=== PATIENT | male | born 1960 | race Caucasian/White ===

== ENCOUNTER 2020-04-29 11:28 | Outpatient (REF) | payer BC, SELFPAY ==
[2020-04-29 14:28] LABS: Hematocrit 43.6 % (42-52); Hemoglobin 14.5 g/dl (14.0-18.0); Mean Corpuscular HGB Conc 33.3 g/dl (31.0-36.0); Mean Corpuscular Hemoglobin 31.3 pg (27.0-33.0); Mean Corpuscular Volume 94.2 fL (80-98); Mean Platelet Volume 9.6 fL (9.4-12.4); Platelet Count 180 X10*3/uL (160-400); Red Blood Count 4.63 X10*6/uL (4.60-5.80); Red Cell Distribution Width 11.9 % (11.0-16.0); White Blood Count 3.2 X10*3/uL (4.8-10.8)
[2020-04-29 14:36] LABS: Anion Gap 13 (12-20); Blood Urea Nitrogen 18 mg/dL (9-16); Carbon Dioxide 22 mmol/L (22-29); Chloride 107 mmol/L (96-108); Cholesterol 208 mg/dL; Estimated Glomerular Filt Rate > 60; Glucose Fasting 167 mg/dL (60-99); HDL Cholesterol 50 mg/dL; LDL Cholesterol Calculated 132 mg/dl; Potassium 4.2 mmol/l (3.3-5.1); Sodium 138 mmol/L (135-145); Triglycerides 133 mg/dL
[2020-04-30 13:03] LABS: Prostate Specific Antigen Scr 4.53 ng/mL (<0.05-4.0)
== END 2020-04-29 11:29 | disposition home or self-care (01) ==
LOC: HO.HMGCLDS 11:28
PROVIDERS: PCP Internal Medicine; Visit Provider Internal Medicine
DX: R53.83 Other fatigue (principal)
CPT/HCPCS: 36415; 80051; 80061; 82565; 82947; 84153; 84520; 85027

== ENCOUNTER 2020-07-27 08:26 | Outpatient (REF) | payer BC, SELFPAY ==
--- NOTE | ~2020-07-27 | XR_ITS ---
EXAMINATION: XR ABDOMEN KUB CLINICAL INDICATION: Neurogenic bladder COMPARISON: None TECHNIQUE: AP view of the abdomen. FINDINGS: There is scattered stool in the right colon. The bowel gas pattern is otherwise nonspecific. There is no radiopaque renal or urinary bladder calculi. You scattered phleboliths in the pelvis. There is mild spondylosis dorsal spine. No lytic process. Suspect a small loose body in the left hip joint. XR/XR KUB IMPRESSION: Mild constipation. No acute process seen.
--- NOTE | ~2020-07-27 | US_ITS ---
EXAMINATION: US RETROPERITONEAL LIMITED (RENAL ONLY) CLINICAL INFORMATION: Unspecified hydronephrosis. COMPARISON: KUB dated 07/27/2020 and 02/18/2019. Ultrasound renals only dated 01/20/2020 and 12/14/2019. CT abdomen and pelvis without contrast dated 12/16/2019. TECHNIQUE: Real-time imaging of the kidneys. FINDINGS: RIGHT KIDNEY: 12.8 x 5.6 x 5.7 cm (SAG x AP x TRV). The kidney is normal in size, contour, and echogenicity. Renal cortical thickness is normal. No renal calculi or hydronephrosis. There are multiple peripelvic cysts with the largest cyst measuring 1.9 x 1.8 x 1.7 cm. LEFT KIDNEY: 13.4 x 6.6 x 6.3 cm (SAG x AP x TRV). The kidney is normal in size, contour, and echogenicity. Renal cortical thickness is normal. There is likely an extrarenal kidney pelvis. There are multiple peripelvic cysts. The largest cyst measures 3.2 x 2.8 x 2.7 cm. There is an echogenic nonobstructive stone lower pole measuring 0.6 x 0.8 x 0.6 cm. US/US renal BI IMPRESSION: Multiple bilateral peripelvic cysts. Nonobstructive echogenic stone lower pole left kidney.
== END 2020-07-27 08:27 | disposition home or self-care (01) ==
LOC: HO.US 08:26
PROVIDERS: PCP Internal Medicine; Visit Provider Urology
DX: N13.30 Unspecified hydronephrosis (principal)
CPT/HCPCS: 74018; 76775

== ENCOUNTER → 2020-08-14 13:19 | Outpatient (BNVA) | payer BC, SELFPAY | PROVIDERS: PCP Internal Medicine; Visit Provider Urology ==

== ENCOUNTER → 2020-10-30 08:39 | Outpatient (BNVA) | payer SELFPAY | PROVIDERS: PCP Internal Medicine; Visit Provider Physician Assistant Medical | DX: Z02.79 Encounter for issue of other medical certificate (principal) ==

== ENCOUNTER 2020-12-21 02:27 | Inpatient (IN) | payer BC, SELFPAY ==
[2020-12-21] VITALS (14 sets, daily range): BP systolic 00–149; BP diastolic 00–85; PULSE 72–90; RESP 16–18; TEMP 36.6–37.1; O2SAT 93–99; BMI 33.1
--- NOTE | ~2020-12-21 | CT_ITS ---
EXAMINATION: CT ABDOMEN AND PELVIS WITHOUT CONTRAST CLINICAL INFORMATION: Left flank pain COMPARISON: 12/23/2019 TECHNIQUE: Multidetector volumetric imaging was performed from the superior aspect of the liver through the pubic symphysis. Sagittal and coronal reformatted images were obtained on the technologist's workstation. This CT examination was performed using dose optimization techniques as appropriate, variously including the following: *Automated exposure control *Adjustment of mA and/or kV according to patient size (this includes techniques or standardized protocols for targeted exams where dose is matched to indication/reason for exam; i.e. extremities or head) *Use of iterative reconstruction technique DLP: 915 mGy-cm FINDINGS: LUNG BASES: The visualized lung bases are unremarkable. Coronary artery calcifications are present. LIVER, GALLBLADDER, AND BILIARY TREE: The liver is normal in size, shape, and attenuation. No focal hepatic lesion or biliary ductal dilatation is present. Cholelithiasis is noted. PANCREAS: There is partial fatty atrophy of the pancreas. SPLEEN: Unremarkable. ADRENAL GLANDS: Unremarkable. KIDNEYS AND URETERS: There is a proximal left ureteral calculus measuring 3 mm likely resulting in subtle hydronephrosis, though the degree of hydronephrosis is difficult to determine given the associated left peripelvic cysts. There are left lower pole renal calculi measuring up to approximately 13 mm. Redemonstrated right peripelvic cysts. BLADDER: There are 2 bladder calculi identified, measuring approximately 2.0 cm and 1.6 cm in length. GASTROINTESTINAL TRACT: The small and large bowel are unremarkable. The appendix is unremarkable. No free fluid or free air is seen. ABDOMINAL WALL: Bilateral fat-containing inguinal hernias noted. LYMPH NODES: Normal. VASCULAR: There is atherosclerotic calcification along the aorta. PELVIC VISCERA: Unremarkable. OSSEOUS STRUCTURES: Degenerative changes are noted in the spine. CT/CT abdomen pelvis wo con IMPRESSION: 1. Proximal left ureteral calculus measuring 3 mm. Degree of hydronephrosis is difficult to determine given the presence of multiple left peripelvic cysts. 2. Left lower pole renal calculi. 3. Two bladder calculi. 4. Cholelithiasis. 5. Coronary artery calcifications. Correlation with cardiac risk factors is recommended.
--- NOTE | ~2020-12-21 | FL_ITS ---
EXAMINATION: XR FLUOROSCOPY WITH IMAGES CLINICAL INFORMATION: Bladder stone COMPARISON: Previous CT of the abdomen and pelvis from earlier the same day TECHNIQUE: Fluoroscopy performed by Dr. Sam Barber. Fluoroscopy time: 0.9 minutes DAP: 17 Gycm2 Images: 2 FINDINGS: Images demonstrate a left internal ureteral stent. There is left-sided hydronephrosis. FL/FL guidance in OR IMPRESSION: Fluoroscopy guidance for left internal ureteral stent placement.
--- NOTE | 2020-12-21 03:01 | ED_ITS ---
HPI - Abdominal Pain General Chief Complaint: Abdominal Pain Stated Complaint: kidney stone Time Seen by Provider: 12/21/20 02:54 Source: patient Mode of arrival: ambulatory Limitations: no limitations History of Present Illness HPI narrative: Patient comes emergency room complaining of left-sided flank pain. Patient states he has been having intermittent left flank pain for 4-5 days, however the pain started yesterday. Patient complaining of left flank pain and vomiting. Patient states he has had multiple kidney stones and stents in the past, the pain is familiar to him. Patient denies dysuria or hematuria. No fever chills. MD elicited complaint: flank pain Related Data Home Medications Medication Instructions Recorded Confirmed albuterol sulfate 90 mcg/actuation INHALATION 08/14/20 aerosol inhaler losartan 50 mg tablet 50 mg PO DAILY 08/14/20 montelukast 10 mg tablet 10 mg PO DAILY 08/14/20 zolpidem 10 mg tablet 10 mg PO BEDTIME PRN 08/14/20 Previous Rx's Medication Instructions Recorded tamsulosin 0.4 mg capsule 0.4 mg PO BEDTIME 90 Days #90 cap 07/28/20 finasteride 5 mg tablet 5 mg PO DAILY 90 Days #90 tab 11/27/20 ketorolac 10 mg PO TID PRN 5 Days tab 12/21/20 ondansetron HCl [Zofran] 4 mg PO Q6H PRN #10 tab 12/21/20 oxycodone 5 mg PO Q6H PRN #10 tab 12/21/20 prednisone 20 mg PO DAILY #4 tab 12/21/20 tamsulosin 0.4 mg PO DAILY #7 cap 12/21/20 Allergies Allergy/AdvReac Type Severity Reaction Status Date / Time No Known Allergies Allergy Unverified 02/13/20 16:57 [No Known Allergies*] Review of Systems Review of Systems Constitutional : No Weight loss, No Fever, No Chills, No Night Sweats, No Fatigue, No Malaise ENT/Mouth : No Hearing loss, No Ear Pain, No Nasal Congestion, No Sinus Pain, No Hoarseness, No sore throat, No Rhinorrhea, No Swallowing Difficulty Eyes: No Eye Pain, No Swelling, No Redness, No Foreign Body, No Discharge, No Vision Changes Cardiovascular : No Chest Pain, No SOB, No Dyspnea on Exertion, No Orthopnea, No Edema, No Palpitations Respiratory : No Cough, No Sputum, No Wheezing, No Smoke Exposure, No Dyspnea Gastrointestinal : Complaining of nausea vomiting, No Diarrhea, No Constipati on, No abdominal Pain, No Hematochezia, No Melena Genitourinary : no irregular bleeding, No Dysuria, No Urinary Frequency, No Hematuria, No Urinary Incontinence, No Urgency, complaining of left-sided Flank Pain, No Urinary Flow Changes, No Hesitancy Musculoskeletal : No joint pain, No Myalgias, No Joint Swelling Skin : No Skin Lesions, No rash Neuro : No Weakness, No Numbness, No Paresthesias, No Loss of Consciousness, No Dizziness, No Headache Psych : No Anxiety/Panic, No Depression, No SI/HI/AH/VH, No Social Issues, Heme/Lymph: No Bruising, No Bleeding,No Lymphadenopathy Endocrine : No Polyuria, No Polydipsia, No Temperature Intolerance Physical Exam Vital Signs: Vital Signs: Last Vital Signs Temp 98.0 F 12/21/20 02:37 Pulse 85 12/21/20 02:37 Resp 16 12/21/20 06:19 BP 00/00 L 12/21/20 02:37 Pulse Ox 97 12/21/20 02:37 Body Mass Index 33.1 Appearance: Alert. Oriented X3. Very uncomfortable, unable to sit still Eyes: Pupils equal, round and reactive to light. ENT: Pharynx normal. Neck: Normal inspection. Neck supple. No lymph nodes noted. No crepitus CVS: Normal heart rate and rhythm. Pulses normal. Normal S1 and S2 Respiratory: No respiratory distress. Breath sounds normal. No Wheezing. No rales Abdomen: Soft and nontender. No rigidity. No distention. Positive CVA tenderness on the left side Skin: Skin, clammy. Normal skin color. Normal skin turgor. Extremities: No lower extremity edema. No lower extremity edema. No Lacerations. No Rash Neuro: Oriented X 3. No motor deficit. No sensory deficit. Moving all extermities. No slurred speech. Course Course Course Narrative: Overall patient feeling better. I discussed the CT scan with the patient, patient has 1 more stone to be passed, he has 2 in the bladder. Patient states that at this moment he has no pain, but he would like 1 additional dose Dilaudid prior to discharge. Patient's blood pressure stable. I discussed the patient with Dr. Barber, patient will be taken to the OR today for lithotripsy. MDM - Abdominal Pain Lab Data Result diagrams: 12/21/20 03:32 12/21/20 03:32 Labs: Lab Results 12/21/20 12/21/20 Range/Units 03:32 03:32 WBC 4.1 L (4.8-10.8) X10*3/uL RBC 4.65 (4.60-5.80) X10*6/uL Hgb 15.3 (14.0-18.0) g/dl Hct 43.7 (42-52) % MCV 94.0 (80-98) fL MCH 32.9 (27.0-33.0) pg MCHC 35.0 (31.0-36.0) g/dl RDW 12.0 (11.0-16.0) % Plt Count 181 (160-400) X10*3/uL MPV 9.2 L (9.4-12.4) fL Immature Gran % (Auto) 0.7 H (0.0-0.4) % Neut % (Auto) 56.8 (45-73) % Lymph % (Auto) 29.6 (20-40) % [place] % (Auto) 9.7 (2-11) % Eos % (Auto) 2.2 (0-4) % Baso % (Auto) 1.0 (0-2) % Lymph # (Auto) 1.2 (1.2-4.9) X10*3/uL [place] # (Auto) 0.4 (0.1-1.2) X10*3/uL Eos # (Auto) 0.1 (0.0-0.4) X10*3/uL Baso # (Auto) 0.0 (0.0-0.2) X10*3/uL Abs Immat Gran (auto) 0.03 (0.00-0.03) X10*3/uL Absolute Neuts (auto) 2.3 (2.0-8.3) X10*3/uL Absolute Nucleated RBC 0.000 (0.0-0.012) X10*3/uL Nucleated RBC % (auto) 0.0 (0.0-0.2) /100WBC Sodium 139 (135-145) mmol/L Potassium 4.8 (3.3-5.1) mmol/L Chloride 106 (96-108) mmol/L Carbon Dioxide 21 L (22-29) mmol/L Anion Gap 17 (12-20) BUN 19 H (9-16) mg/dL Creatinine 0.92 (0.5-1.4) mg/dL Estim Creat Clear Calc 98.5 Estimated GFR > 60 Random Glucose 144 H (60-115) mg/dL Calcium 9.5 (8.4-10.2) mg/dL Total Bilirubin 0.6 (0.0-1.0) mg/dL Direct Bilirubin 0.2 (0.0-0.5) mg/dL AST 35 (5-37) U/L ALT 43 H (0-40) U/L Alkaline Phosphatase 86 (39-117) U/L Total Protein 7.3 (6.5-8.0) g/dL Albumin 4.5 (3.5-5.0) g/dL Imaging Data CT scan - abdomen: Radiologist's impression: INDINGS: LUNG BASES: The visualized lung bases are unremarkable. Coronary artery calcifications are present. LIVER, GALLBLADDER, AND BILIARY TREE: The liver is normal in size, shape, and attenuation. No focal hepatic lesion or biliary ductal dilatation is present. Cholelithiasis is noted. PANCREAS: There is partial fatty atrophy of the pancreas. SPLEEN: Unremarkable. ADRENAL GLANDS: Unremarkable. KIDNEYS AND URETERS: There is a proximal left ureteral calculus measuring 3 mm likely resulting in subtle hydronephrosis, though the degree of hydronephrosis is difficult to determine given the associated left peripelvic cysts. There are left lower pole renal calculi measuring up to approximately 13 mm. Redemonstrated right peripelvic cysts. BLADDER: There are 2 bladder calculi identified, measuring approximately 2.0 cm and 1.6 cm in length. GASTROINTESTINAL TRACT: The small and large bowel are unremarkable. The appendix is unremarkable. No free fluid or free air is seen. ABDOMINAL WALL: Bilateral fat-containing inguinal hernias noted. LYMPH NODES: Normal. VASCULAR: There is atherosclerotic calcification along the aorta. PELVIC VISCERA: Unremarkable. OSSEOUS STRUCTURES: Degenerative changes are noted in the spine. CT/CT abdomen pelvis wo con IMPRESSION: 1. Proximal left ureteral calculus measuring 3 mm. Degree of hydronephrosis is difficult to determine given the presence of multiple left peripelvic cysts. 2. Left lower pole renal calculi. 3. Two bladder calculi. 4. Cholelithiasis. 5. Coronary artery calcifications. Correlation with cardiac risk factors is recommended. Discharge Plan Discharge Clinical Impression: Ureterolithiasis Patient Disposition: Admitted As Inpatient Instructions: Kidney Stones (ED) Additional Instructions: Please follow-up with your primary care physician tomorrow. If you have any worsening or new symptoms, please return to the emergency room or call 911 Prescriptions: New ketorolac 10 mg tablet 10 mg PO TID PRN (Reason: pain) 5 Days RF: 0 prednisone 20 mg tablet 20 mg PO DAILY Qty: 4 RF: 0 tamsulosin 0.4 mg capsule 0.4 mg PO DAILY Qty: 7 RF: 0 ondansetron HCl [Zofran] 4 mg tablet 4 mg PO Q6H PRN (Reason: nausea and vomiting) Qty: 10 RF: 0 oxycodone 5 mg tablet 5 mg PO Q6H PRN (Reason: pain) Qty: 10 RF: 0 No Action tamsulosin 0.4 mg capsule 0.4 mg PO BEDTIME 90 Days Qty: 90 RF: 2 finasteride 5 mg tablet 5 mg PO DAILY 90 Days Qty: 90 RF: 2 PMFSH Past Medical History Medical History Asthma H/O urinary retention Kidney stones Myocardial infarct, old Social History Social History (Updated 08/14/20 @ 13:26 by BOBBY Stover) Advance Directives: No
[2020-12-21 03:37] LABS: MANUAL DIFF FLAG NO
[2020-12-21 03:39] LABS: Eosinophils Absolute Auto 0.1 X10*3/uL (0.0-0.4); Eosinophils Percent Auto 2.2 % (0-4); Hematocrit 43.7 % (42-52); Hemoglobin 15.3 g/dl (14.0-18.0); Imm Gran Abs Auto 0.03 X10*3/uL (0.00-0.03); Imm Gran Pct Auto 0.7 % (0.0-0.4); Lymphocytes Absolute Auto 1.2 X10*3/uL (1.2-4.9); Lymphocytes Percent Auto 29.6 % (20-40); Mean Corpuscular Hemoglobin 32.9 pg (27.0-33.0); Mean Platelet Volume 9.2 fL (9.4-12.4); Monocytes Absolute Auto 0.4 X10*3/uL (0.1-1.2); Monocytes Percent Auto 9.7 % (2-11); Neutrophils Absolute Auto 2.3 X10*3/uL (2.0-8.3); Neutrophils Percent Auto 56.8 % (45-73); Platelet Count 181 X10*3/uL (160-400); Red Blood Count 4.65 X10*6/uL (4.60-5.80); White Blood Count 4.1 X10*3/uL (4.8-10.8)
[2020-12-21] MEDS: Ketorolac Tromethamine 15 MG/ML VIAL 30 MG IVPUSH (03:45)
[2020-12-21] MEDS: 0.9 % Sodium Chloride 1,000 ML 999 ML IVCONT (03:52)
[2020-12-21] MEDS: Morphine Sulfate 4 MG/ML CARTRIDGE IVPUSH (04:04)
[2020-12-21 04:26] LABS: Alanine Aminotransferase 43 U/L (0-40); Albumin Level 4.5 g/dL (3.5-5.0); Alkaline Phosphatase 86 U/L (39-117); Anion Gap 17 (12-20); Aspartate Amino Transferase 35 U/L (5-37); Bilirubin Direct 0.2 mg/dL (0.0-0.5); Bilirubin Total 0.6 mg/dL (0.0-1.0); Blood Urea Nitrogen 19 mg/dL (9-16); Calcium 9.5 mg/dL (8.4-10.2); Carbon Dioxide 21 mmol/L (22-29); Chloride 106 mmol/L (96-108); Creatinine Clr Calc Pharmacy 98.5; Estimated Glomerular Filt Rate > 60; Glucose Random 144 mg/dL (60-115); Potassium 4.8 mmol/L (3.3-5.1); Sodium 139 mmol/L (135-145); Total Protein 7.3 g/dL (6.5-8.0)
[2020-12-21] MEDS: HYDROmorphone HCl 1 MG/ML SYRINGE IVPUSH ×2 (05:05→06:14)
--- NOTE | 2020-12-21 07:43 | PM.UROCN ---
Assessment and Plan (1) Nephrolithiasis: Status: Acute (2) Bladder stones: Status: Acute Ureteroscopy We discussed the nature of the decision and reasonable alternatives for performing the above surgery. Interventions include chemical dissolution, ESWL, ureteroscopy with laser lithotripsy and stent placement, PCNL. Options such as medical therapy were discussed. The relative uncertainties and benefits related to each alternate procedure were adequately discussed. General surgical risks including, but not limited to, pain, bleeding, infection, myocardial infarction, pulmonary embolus, deep vein thrombosis and cerebrovascular accident which may result in further hospitalization were discussed. Full disclosure of the procedure as well as all major risks, benefits and complications were discussed including but not limited to damage to the urethra, bladder and kidney infection, damage to the ureter, stent migration or malposition, scarring to the renal pelvis, remnant stone fragments, subsequent stone passage with need for secondary procedures. The overall secondary procedure rate is approximately 10-15%. The success rate of the procedure was discussed. Success of the procedure in the short-term does not necessarily guarantee that long-term success will be maintained. Suitable follow up will need to be maintained. The patient showed understanding of discussion and wishes to proceed with - cystoscopy, retrograde, ureteroscopy, possible lithotripsy/stone basketing and stent on the left side History of Present Illness Consult details Consult date: 12/21/20 Narrative: Jhon is a very pleasant male. Well known to Urology Presented to emergency room with left-sided flank pain CT scan shows - There is a proximal left ureteral calculus measuring 3 mm likely resulting in subtle hydronephrosis, though the degree of hydronephrosis is difficult to determine given the associated left peripelvic cysts. There are left lower pole renal calculi measuring up to approximately 13 mm. Redemonstrated right peripelvic cysts. There are 2 bladder calculi identified, measuring approximately 2.0 cm and 1.6 cm in length Discussed CT findings with patient. He would like to proceed with cystoscopy, laser of bladder stones, left retrograde with ureteroscopy and laser lithotripsy. Review of Systems Constitutional: Constitutional: Denies chills and Denies fever(s) Cardiovascular: Cardiovascular: Reports no additional cardiovascular complaints and Denies syncope Respiratory: Respiratory: Denies cough Gastrointestinal: Gastrointestinal: Denies abdominal pain and Denies heartburn Genitourinary: Genitourinary: Reports as per HPI and Denies change in libido Neurologic: Denies syncope Psychiatric: Psychiatric: Denies change in libido Endocrine: Endocrine: Denies change in libido REPLACED BY [facility] Past Medical History Medical History Asthma H/O urinary retention Kidney stones Myocardial infarct, old Social History Social History (Updated 08/14/20 @ 13:26 by BOBBY Stover) Advance Directives: No Meds Allergies Allergy/AdvReac Type Severity Reaction Status Date / Time No Known Allergies Allergy Unverified 02/13/20 16:57 [No Known Allergies*] Active Medications: Current Medications Generic Name Dose Route Start Last Admin Trade Name Freq PRN Reason Stop Dose Admin Acetaminophen 650 mg 12/21/20 07:37 Acetaminophen 325 Mg Tablet PO 12/21/20 07:38 ONCE ONE Sodium Chloride 1,000 mls @ 80 mls/hr 12/21/20 07:45 Ns IVCONT .[id number] ANGELA Levofloxacin 500 mg 12/21/20 07:37 Levofloxacin 500 Mg Tablet PO 12/21/20 07:38 ONCE ONE Sodium Chloride 3 ml 12/21/20 08:00 0.9 % Sodium Chloride Flush 3 Ml Syringe IVFLUSH QSHIFT [facility] Sodium Chloride 3 ml 12/21/20 08:00 0.9 % Sodium Chloride Flush 3 Ml Syringe IVFLUSH QSHIFT [facility] Tramadol HCl 50 mg 12/21/20 07:37 Tramadol Hcl 50 Mg Tablet PO Q6H PRN Pain, Moderate (Pain Scale 4-6 Home Medications Medication Instructions Recorded Confirmed Last Taken Type albuterol sulfate 90 mcg/actuation INHALATION 08/14/20 Unknown History aerosol inhaler losartan 50 mg tablet 50 mg PO DAILY 08/14/20 Unknown History montelukast 10 mg tablet 10 mg PO DAILY 08/14/20 Unknown History zolpidem 10 mg tablet 10 mg PO BEDTIME PRN 08/14/20 Unknown History Physical Exam Vital Signs: Vital Signs: Last Vital Signs Temp 98 F 12/21/20 07:39 Pulse 87 12/21/20 07:39 Resp 16 12/21/20 07:39 BP 124/84 12/21/20 07:39 Pulse Ox 93 12/21/20 07:39 Body Mass Index 33.1 Const: General: cooperative, healthy appearing, comfortable and no acute distress Orientation/consciousness: patient oriented x3 HENMT: Face and sinus: Yes normal facial exam Mouth: moist mucous membranes Neck: Neck: Yes normal visual inspection, Yes full ROM and Yes trachea midline Chest: Chest palpation & inspection: normal inspection of the chest Resp: Effort & Inspection: normal respiratory effort, able to speak in complete sentences and no respiratory distress GI: Inspection: Yes normal to inspection Back/Spine/Pelvis: Cervical Spine: normal cervical lordosis Thoracic/Lumbar Spine: thoracic and lumbar spine normal to inspection Skin: General skin exam: no rashes or lesions noted Neuro: General: patient oriented x3, gait normal, tone normal and moves all extremities Extrem: General: Yes normal to inspection and Yes capillary refill normal Results Labs Result diagrams: 12/21/20 03:32 12/21/20 03:32 Labs: Abnormal lab results 12/21/20 12/21/20 Range/Units 03:32 03:32 WBC 4.1 L (4.8-10.8) X10*3/uL MPV 9.2 L (9.4-12.4) fL Immature Gran % (Auto) 0.7 H (0.0-0.4) % Carbon Dioxide 21 L (22-29) mmol/L BUN 19 H (9-16) mg/dL Random Glucose 144 H (60-115) mg/dL ALT 43 H (0-40) U/L Short CBC 12/21/20 Range/Units 03:32 WBC 4.1 L (4.8-10.8) X10*3/uL Hgb 15.3 (14.0-18.0) g/dl Hct 43.7 (42-52) % Plt Count 181 (160-400) X10*3/uL BMP 12/21/20 03:32 Sodium 139 Potassium 4.8 Chloride 106 Carbon Dioxide 21 L BUN 19 H Creatinine 0.92 Calcium 9.5 Liver Function 12/21/20 Range/Units 03:32 Total Bilirubin 0.6 (0.0-1.0) mg/dL Direct Bilirubin 0.2 (0.0-0.5) mg/dL AST 35 (5-37) U/L ALT 43 H (0-40) U/L Alkaline Phosphatase 86 (39-117) U/L Albumin 4.5 (3.5-5.0) g/dL All other labs normal. Procedures Date of Service Date of Service: 12/21/20
[2020-12-21 08:01] LABS: COVID-19 Test Negative (Negative)
[2020-12-21] MEDS: levoFLOXacin 500 MG TABLET PO (08:01)
[2020-12-21] MEDS: Acetaminophen 325 MG TABLET 650 MG PO (08:01)
[2020-12-21] MEDS: traMADoL HCL 50 MG TABLET PO (08:02)
[2020-12-21] MEDS: 0.9 % Sodium Chloride 1,000 ML 80 ML IVCONT (08:54)
--- NOTE | 2020-12-21 12:26 | MHC.SHP ---
Pre-Procedural Eval Section A Date of Service: 12/21/20 The patient is an INPATIENT: No Changes since office visit: Yes Patient answered all questions The History & Physical has been completed within 30 days and I have reviewed it.: Yes Section B Chief Complaint: BLADDER STONE AND LEFT URETERIC STONE Allergies: Allergies Allergy/AdvReac Type Severity Reaction Status Date / Time No Known Allergies Allergy Unverified 02/13/20 16:57 [No Known Allergies*] Plan I have reviewed the history and physical and performed a pertinent physical examination on my patient. No changes have occurred unless specified. Plan for cystoscopy, bladder stone removal, left retrograde, left ureteroscopy laser lithotripsy and possible stent
--- NOTE | 2020-12-21 12:26 | HO.ANESPROP2 ---
[facility] Active Problems Active Problems: All Active Problems (Updated 12/21/20 @ 07:47 by Sam Barber MD) Bladder stones (Acute) Neurogenic urinary bladder disorder (Acute) Hydronephrosis (Acute) Nephrolithiasis (Acute) BPH w urinary obs/LUTS (Acute) Ureterolithiasis (Acute) Past Medical History Medical History Asthma H/O urinary retention Kidney stones Myocardial infarct, old Social History Social History Patient Tobacco Use Status: Never used Tobacco Use of substances other than those prescribed or required for medical reasons: No Have you been hit, kicked, punched, or otherwise hurt by someone within the past year? If so, by whom?: No Are you DNR?: No Advance Directives: No Meds Allergies Allergy/AdvReac Type Severity Reaction Status Date / Time No Known Allergies Allergy Unverified 02/13/20 16:57 [No Known Allergies*] Active Medications: Current Medications Generic Name Dose Route Start Last Admin Trade Name Freq PRN Reason Stop Dose Admin Sodium Chloride 1,000 mls @ 80 mls/hr 12/21/20 07:45 12/21/20 08:54 Ns IVCONT 80 mls/hr .[id number] ANGELA Administration Morphine Sulfate 4 mg 12/21/20 09:53 Morphine Sulfate 4 Mg/Ml Cartridge IVPUSH Q4H PRN Pain, Moderate (Pain Scale 4-6 Sodium Chloride 3 ml 12/21/20 08:00 12/21/20 08:34 0.9 % Sodium Chloride Flush 3 Ml Syringe IVFLUSH Not Given QSHIFT ANGELA Sodium Chloride 3 ml 12/21/20 08:00 12/21/20 08:35 0.9 % Sodium Chloride Flush 3 Ml Syringe IVFLUSH Not Given QSHIFT ANGELA Tramadol HCl 50 mg 12/21/20 07:37 12/21/20 08:02 Tramadol Hcl 50 Mg Tablet PO 50 mg Q6H PRN Administration Pain, Moderate (Pain Scale 4-6 Home Medications Medication Instructions Recorded Confirmed Last Taken Type albuterol sulfate 90 mcg/actuation 2 puff INHALATION Q4H PRN 08/14/20 12/21/20 Unknown History aerosol inhaler losartan 50 mg tablet 50 mg PO DAILY 08/14/20 12/21/20 Unknown History montelukast 10 mg tablet 10 mg PO DAILY 08/14/20 12/21/20 Unknown History zolpidem 10 mg tablet 10 mg PO BEDTIME PRN 08/14/20 12/21/20 Unknown History Exam Exam Date and Time: December 21, 2020 1226 Height,Weight and Vital Signs: Height 5 ft 8 in Weight 98.883 kg Last Vital Signs Temp 97.9 F 12/21/20 10:44 Pulse 90 12/21/20 10:44 Resp 18 12/21/20 10:44 BP 146/80 H 12/21/20 10:44 Pulse Ox 95 12/21/20 10:44 Pertinent Lab Results Pertinent Lab Results: Laboratory Tests 12/21/20 12/21/20 12/21/20 03:32 03:32 07:35 WBC 4.1 L RBC 4.65 Hgb 15.3 Hct 43.7 MCV 94.0 MCH 32.9 MCHC 35.0 RDW 12.0 Plt Count 181 MPV 9.2 L Immature Gran % (Auto) 0.7 H Neut % (Auto) 56.8 Lymph % (Auto) 29.6 [place] % (Auto) 9.7 Eos % (Auto) 2.2 Baso % (Auto) 1.0 Lymph # (Auto) 1.2 [place] # (Auto) 0.4 Eos # (Auto) 0.1 Baso # (Auto) 0.0 Abs Immat Gran (auto) 0.03 Absolute Neuts (auto) 2.3 Absolute Nucleated RBC 0.000 Nucleated RBC % (auto) 0.0 Sodium 139 Potassium 4.8 Chloride 106 Carbon Dioxide 21 L Anion Gap 17 BUN 19 H Creatinine 0.92 Estim Creat Clear Calc 98.5 Estimated GFR > 60 Random Glucose 144 H Calcium 9.5 Total Bilirubin 0.6 Direct Bilirubin 0.2 AST 35 ALT 43 H Alkaline Phosphatase 86 Total Protein 7.3 Albumin 4.5 COVID-19 (LG) Negative COVID-19 Clin Com See Note Airway Mallampati Class: II TM Dist: >3cm Neck ROM: Full Assessment and Plan Assessment Anesthesia Assessment: Anesthesia Plan Discussed and Chart Reviewed Final Anesthetic Review NPO: Yes ASA Class: III Final Preanesthetic Review: No Changes in Pt Med Stat, Meds/Allgs Chart Reviewed, Consent Obtained/Reviewed and Anes Risks/Benef Reviewed Patient Risk: Intermediate Procedure Risk: Low Assessment/Block/Sedation in SS: Assess/Block/Sedation-SS Anesthetic Plan Anesthetic Plan: GA Disposition: Standard PACU
[2020-12-21] MEDS: Lactated Ringers 500 ML 20 ML IVCONT (12:36)
--- NOTE | 2020-12-21 12:46 | PC.NURSE ---
Patient rhythm taken on SSS arrival. SR on monitor, pulse 90. During intake, rhythm changed to SR with BBB. Pulse 95-100. Patient asymptomatic. Dr. Rivas aware and at bedside. No new orders, okay to proceed with procedure.
--- NOTE | 2020-12-21 12:51 | MHC.SHP ---
Pre-Procedural Eval Section A Date of Service: 12/21/20 Section B Chief Complaint: BLADDER STONE AND LEFT URETERIC STONE Allergies: Allergies Allergy/AdvReac Type Severity Reaction Status Date / Time No Known Allergies Allergy Unverified 02/13/20 16:57 [No Known Allergies*] Plan I have reviewed the history and physical and performed a pertinent physical examination on my patient. No changes have occurred unless specified.
--- NOTE | 2020-12-21 14:24 | W.PM.OPN ---
Operative Note Operative Note Date of Service: 12/21/20 Narrative: PreOperative Diagnosis: Left proximal ureteric stone, left renal stones large, bladder stones Post Operative Diagnosis: As above Procedure: - 1. Cystoscopy laser lithotripsy of 2 bladder stones each 2 cm in diameter - 2. cystoscopy, retrograde left - 3. dilatation of ureteric orifice under fluoroscopy - 4. ureteroscopy, laser lithotripsy - modifier 22 - 2 large stones in lower pole renal kidney - 5. stent placement left Surgeon: Dr Sam Barber Anesthesia: General Indications for procedure: Is a 60-year-old male. Known to Urology. Had presented through emergency room with left-sided flank pain. On imaging was found to have 2 2 cm stones within his bladder, 1 x 3 mm proximal left ureteric stone with mild to moderate hydronephrosis, 2 x 9 mm stones in the lower pole of the left kidney. Recommendation was for intervention. Laser lithotripsy of stones in bladder as well as renal stones with stent placement. Procedure: After informed consent was verified patient was brought to the operating placed in supine position. Anesthesia was administered per protocol. Patient was placed in modified dorsal lithotomy position and prepped and draped in a sterile fashion. Safety pause time-out and side of surgery confirmed. Antibiotics confirmed. Twenty-two Armenian cystoscope inserted per urethra. Ureteric orifices normal position. To 2 cm bladder stones. Using the 900 micron laser fiber the stones were broken into small fragments and irrigated out from the bladder. This took approximately 45 minutes. Each stone was approximately 3 cm in diameter. When the stone debris had been removed the left ureteric orifice cannulated retrograde examination performed. There was a small filling defect proximal portion of the ureter consistent with the imaging that showed a 3 mm stone in the proximal portion of the ureter. A Sensor guidewire was placed. This appeared to push the obstructing stone back up into the kidney. The kidney itself was dilated in both the upper and lower pole calices. Suggestive of some type of chronic process. The left ureter was dilated with the internal cannula of the ureteric access sheath. The sheath was placed. Using the flexible digital Olympus ureteral scope the stone was encountered in lower pole. There were 2 large stones in the lower pole. Using the 260 micron laser fiber the stones were broken into much smaller pieces using a combination of dusting and hammer settings for the laser. This was a prolonged procedure taking 100% longer than typical. There were multiple large stones in the lower pole of the kidney. These were broken into many small pieces. As this was prolonged decision was made not to basket fragments. Instead a Cook flexible soft 6 Armenian variable length double-J catheter was placed without difficulty. He tolerated procedure well was extubated in operating room transferred in stable condition to the recovery area Pathology: Bladder stones Drains: Cook 6 Armenian by variable length double-J catheter
[2020-12-21] MEDS: Phenazopyridine HCL 100 MG TABLET PO (14:57)
== END 2020-12-21 12:00 | disposition home or self-care (01) | DRG 465 ==
LOC: HO.ED 07:47 → HO.EDOVER 08:11
PROVIDERS: Admitting Provider Urology; Emergency Provider Emergency Medicine; PCP Internal Medicine; Visit Provider Urology
PROC: 0TFB8ZZ Fragmentation in Bladder, Via Natural or Artificial Opening Endoscopic (ICD-10-PCS; CPT 52356; principal; 2020-12-21 12:50)
DX: N13.2 Hydronephrosis with renal and ureteral calculous obstruction (principal); I25.2 Old myocardial infarction; N21.0 Calculus in bladder; Z87.442 Personal history of urinary calculi; Z20.822 Contact with and (suspected) exposure to COVID-19; Z79.52 Long term (current) use of systemic steroids; Z79.899 Other long term (current) drug therapy
CPT/HCPCS: 52356; 52317; 36415; 74176; 80048; 80076; 85025; 87635; 88300; 99284; C1769; C2617; J1100; J1170; J1885; J2250; J2270; J2405; J3010; Q9967

== ENCOUNTER → 2020-12-24 12:49 | Outpatient (BNVA) | payer BC, SELFPAY | PROVIDERS: PCP Internal Medicine; Visit Provider Urology | DX: N40.1 Benign prostatic hyperplasia with lower urinary tract symptoms (principal); N13.8 Other obstructive and reflux uropathy; N20.1 Calculus of ureter; N20.0 Calculus of kidney; Z46.6 Encounter for fitting and adjustment of urinary device | CPT/HCPCS: 52310 ==

== ENCOUNTER 2021-02-22 10:27 | Outpatient (REF) | payer BC, SELFPAY ==
--- NOTE | ~2021-02-22 | US_ITS ---
EXAMINATION: US RETROPERITONEAL LIMITED (RENAL ONLY) CLINICAL INFORMATION: Calculus of kidney. COMPARISON: CT abdomen and pelvis 12/21/2020. Renal ultrasound 07/27/2020 and 01/20/2020. X-ray abdomen KUB 07/27/2020 and 02/18/2019. TECHNIQUE: Real-time imaging of the kidneys. FINDINGS: RIGHT KIDNEY: 12.9 x 5.6 x 8.8 cm (SAG x AP x TRV). The kidney is normal in size, contour, and echogenicity. Renal cortical thickness is normal. No renal calculi or hydronephrosis. There is a 1.3 x 1.4 x 1.1 cm peripelvic anechoic cysts. LEFT KIDNEY: 12.9 x 6.2 x 6.2 cm (SAG x AP x TRV). The kidney is normal in size, contour, and echogenicity. Renal cortical thickness is normal. No hydronephrosis. There is a peripelvic upper pole anechoic cyst measuring 2.3 x 3.2 x 3.3 cm. There is echogenic nonobstructive stone lower pole measuring 0.47 x 0.42 x 0.68 cm. US/US renal BI IMPRESSION: Bilateral peripelvic cysts. Echogenic stone lower pole left kidney.
== END 2021-02-22 10:28 | disposition home or self-care (01) ==
LOC: HO.US 10:27
PROVIDERS: Visit Provider Urology
DX: N20.0 Calculus of kidney (principal)
CPT/HCPCS: 76775

== ENCOUNTER → 2021-05-05 14:11 | Outpatient (BNVA) | payer BC, SELFPAY | PROVIDERS: PCP Internal Medicine; Visit Provider Urology ==

== ENCOUNTER 2021-06-22 07:19 | Outpatient (REF) | payer BC, SELFPAY ==
[2021-06-22 07:46] VITALS: BP 129/74; PULSE 85; RESP 16; TEMP 36.7; O2SAT 97; BMI 34.9
[2021-06-22 08:33] VITALS: BP 124/67; PULSE 87; RESP 16; O2SAT 96
--- NOTE | 2021-06-23 11:20 | W.PM.OPN ---
Operative Note Operative Note Date of Service: 06/23/21 Narrative: Preoperative diagnosis: Elevated PSA Postoperative diagnosis: Elevated PSA Procedure: 1. transrectal ultrasound measurement of prostate 2. transrectal ultrasound-guided pudendal nerve block 3. transrectal ultrasound-guided prostate biopsy 12 core Surgeon: Dr. Sam Barber Anesthetic: Local Indications for procedure: Elevated PSA Procedure: After informed consent was verified, the patient was brought into the procedure area and lay left-hand side down on the table. Patient identity confirmed. Perioperative antibiotics confirmed. Iodine 10cc with Gel was placed per rectum Ultrasound probe was placed per rectum The prostate was measured in 3 dimensions Total volume equals 55 gm There were no cystic structures and no calcifications noted and the prostate was homogeneous in nature A ultrasound-guided pudendal nerve block was performed using 10 cc of 1% lidocaine. 8 cc was placed at the base and 2 cc of the apex. A 12 core biopsy was performed with 6 cores each side. Two cores were taken at the apex, mid and base. Cores were spaced between lateral and medial. He tolerated the procedure well. Was able to ambulate to bathroom after 5 minutes. Printed instructions regarding antibiotic use and common side effects such as low-grade temperature and bleeding were given Pathology: 12 core prostate biopsy.
== END 2021-06-22 07:20 | disposition home or self-care (01) ==
LOC: HO.MS 07:19
PROVIDERS: PCP Internal Medicine; Visit Provider Urology
PROC: (CPT 55700; principal; 2021-06-22 08:00)
DX: R97.20 Elevated prostate specific antigen [PSA] (principal)
CPT/HCPCS: 55700; 76942; 88305

== ENCOUNTER → 2021-07-01 09:04 | Outpatient (BNVA) | payer BC, SELFPAY | PROVIDERS: Visit Provider Urology ==

== ENCOUNTER 2021-08-23 10:49 | Inpatient (IN) | payer BC, SELFPAY ==
--- NOTE | ~2021-08-23 | FL_ITS ---
EXAMINATION: Intraoperative fluoroscopy CLINICAL INFORMATION: Right-sided stent placement COMPARISON: CT abdomen pelvis 08/15/2021 TECHNIQUE: Intraoperative fluoroscopy was provided for use by Dr. Barber. A total of 2 images were saved to PACS. A radiologist was not present during imaging. Today's dictation is only for administrative purposes to document intraoperative fluoroscopic usage. TOTAL FLUOROSCOPIC TIME: 19 seconds FL/FL guidance in OR FINDINGS~\^^ Intraoperative fluoroscopy provided for use by Dr. Barber. Please see operative note for detailed findings.
--- NOTE | ~2021-08-23 | CT_ITS ---
EXAMINATION: CT ABDOMEN AND PELVIS WITHOUT CONTRAST CLINICAL INFORMATION: COMPARISON: Previous CT November 2020 and renal ultrasound January 2021 TECHNIQUE: Multidetector volumetric imaging was performed from the superior aspect of the liver through the pubic symphysis. Sagittal and coronal reformatted images were obtained on the technologist's workstation. This CT examination was performed using dose optimization techniques as appropriate, variously including the following: *Automated exposure control *Adjustment of mA and/or kV according to patient size (this includes techniques or standardized protocols for targeted exams where dose is matched to indication/reason for exam; i.e. extremities or head) *Use of iterative reconstruction technique DLP: 880 mGy-cm FINDINGS: LUNG BASES: There are new predominantly peripheral nodular densities seen at the lung bases. The largest measures 1 x 2 cm along the posterior diaphragmatic pleural surface of the right lower lobe axial image 18 series 3. This may represent residual of old infectious or inflammatory process in particular old Covid infection. Clinical correlation is recommended. Follow-up chest centered LIVER, GALLBLADDER, AND BILIARY TREE: The liver is normal in size, shape, and attenuation. No focal hepatic lesion or biliary ductal dilatation is present. The gallbladder is unremarkable with no evidence of radiopaque gallstones, gallbladder wall thickening, or obvious pericholecystic inflammatory changes. PANCREAS: Unremarkable. SPLEEN: Unremarkable. ADRENAL GLANDS: Unremarkable. KIDNEYS AND URETERS: There is right hydronephrosis from a 4 x 6 mm right proximal ureteral or UVJ stone. There is a tiny 1 mm stone in the lower pole of the right kidney. There is question of a right peripelvic cysts as well. There are small left renal stones, largest measuring 3 mm in the upper pole. There are left renal peripelvic cysts. No left hydronephrosis, ureteral dilatation or ureteral stone is seen. BLADDER: Not optimally distended. GASTROINTESTINAL TRACT: There is diverticulosis of the colon. Small and large bowel is otherwise unremarkable. The appendix is unremarkable. The stomach is unremarkable. ABDOMINAL WALL: Small umbilical, periumbilical and bilateral inguinal hernias containing fat. LYMPH NODES: Normal. VASCULAR: There is evidence of atherosclerotic disease. There is no aneurysm. PELVIC VISCERA: Unremarkable. OSSEOUS STRUCTURES: There are degenerative changes of the spine. CT/CT abdomen pelvis wo con IMPRESSION: Right hydronephrosis from a 4 x 6 mm right UPJ or proximal ureteral stone. Small bilateral renal stones. Left renal peripelvic cysts and question right peripelvic cyst. Slightly enlarged prostate gland. Diverticulosis. No evidence of diverticulitis. Multiple new nodular opacities seen at the lung bases. This could represent residual of old infectious or inflammatory process, in particular Covid infection. Neoplastic process cannot be excluded. Clinical correlation and follow-up chest CT recommended. Fleischner guidelines were followed.
[2021-08-23 11:36] VITALS: BP 148/85; PULSE 111; RESP 18; TEMP 36.8; O2SAT 96; BMI 33.4
[2021-08-23 11:52] LABS: MANUAL DIFF FLAG NO
[2021-08-23 12:01] LABS: Basophils Percent Auto 0.2 % (0-2); Eosinophils Percent Auto 0.5 % (0-4); Hemoglobin 14.3 g/dl (14.0-18.0); Imm Gran Abs Auto 0.04 X10*3/uL (0.00-0.03); Imm Gran Pct Auto 0.5 % (0.0-0.4); Lymphocytes Absolute Auto 0.8 X10*3/uL (1.2-4.9); Lymphocytes Percent Auto 10.2 % (20-40); Mean Corpuscular HGB Conc 33.3 g/dl (31.0-36.0); Mean Corpuscular Hemoglobin 31.6 pg (27.0-33.0); Mean Corpuscular Volume 95.1 fL (80.0-98.0); Mean Platelet Volume 9.1 fL (9.4-12.4); Monocytes Absolute Auto 0.8 X10*3/uL (0.1-1.2); Neutrophils Absolute Auto 6.5 x10*3/uL (2.0-8.3); Neutrophils Percent Auto 78.6 % (45-73); Platelet Count 152 X10*3/uL (160-400); Red Blood Count 4.52 X10*6/uL (4.60-5.80); Red Cell Distribution Width 12.6 % (11.0-16.0); White Blood Count 8.3 X10*3/uL (4.8-10.8)
[2021-08-23 12:09] LABS: Anion Gap 15 (12-20); Blood Urea Nitrogen 23 mg/dL (9-16); Calcium 9.3 mg/dL (8.4-10.2); Carbon Dioxide 20 mmol/L (22-29); Chloride 106 mmol/L (96-108); Creatinine Clr Calc Pharmacy 65.6; Estimated Glomerular Filt Rate 53; Glucose Random 169 mg/dL (60-115); Potassium 4.3 mmol/L (3.3-5.1); Sodium 137 mmol/L (135-145)
[2021-08-23 14:36] VITALS: BP 147/86; PULSE 94; RESP 18; TEMP 36.7; O2SAT 98
--- NOTE | 2021-08-23 14:36 | ED_ITS ---
HPI - Male Genitourinary General Chief complaint: Urogenital-Male Stated complaint: PASSING KIDNEY STONES PAIN Time Seen by Provider: 08/23/21 14:37 Source: patient Mode of arrival: ambulatory Limitations: no limitations History of Present Illness HPI Narrative: patient is a 61-year-old male with a past medical history of renal calculi. He presents emergency department today for concern about a blockage with kidney stone. He states he is followed by urologist Dr. Barber. states 3 days ago he passed 2 kidney stones, an additional 2 kidney stones were passed 2 days ago. Since yesterday has been experiencing right flank pain, and urinary retention. states he is prescribed prednisone, naproxen, tamsulosin, tramadol, and oxycodone. States that he last took naproxen and oxycodone last night. He contacted his urologist who advised him to come to the emergency department for evaluation. Denies fevers, chills, nausea, vomiting, abdominal pain, hematuria, dysuria. Denies chest pain, palpitations, shortness of breath, difficulty breathing. Related Data Home Medications Medication Instructions Recorded Confirmed albuterol sulfate 90 mcg/actuation 2 puff INHALATION Q4H PRN 08/14/20 12/21/20 aerosol inhaler (ProAir HFA) losartan 50 mg tablet 50 mg PO DAILY 08/14/20 12/21/20 montelukast 10 mg tablet 10 mg PO DAILY 08/14/20 12/21/20 zolpidem 10 mg tablet 10 mg PO BEDTIME PRN 08/14/20 12/21/20 Previous Rx's Medication Instructions Recorded finasteride 5 mg tablet 5 mg PO DAILY 90 Days #90 tab 11/27/20 ketorolac 10 mg tablet 10 mg PO TID PRN 5 Days tab 12/21/20 ondansetron HCl 4 mg tablet 4 mg PO Q6H PRN #10 tab 12/21/20 (Zofran) oxycodone 5 mg tablet 5 mg PO Q6H PRN #10 tab 12/21/20 prednisone 20 mg tablet 20 mg PO DAILY #4 tab 12/21/20 tramadol 50 mg tablet 50 mg PO Q6H PRN #14 tab 12/21/20 phenazopyridine 100 mg tablet 100 mg PO TID PRN 4 Days #12 tab 12/25/20 (Pyridium) sulfamethoxazole 800 1 tab PO BID 3 Days #6 tab 05/05/21 mg-trimethoprim 160 mg tablet (Bactrim DS) tamsulosin 0.4 mg capsule 0.4 mg PO BEDTIME 90 Days #90 cap 05/18/21 naproxen 500 mg tablet (Naprosyn) 500 mg PO BID #14 tab 08/19/21 prednisone 20 mg tablet 20 mg PO DAILY 5 Days #5 tab 08/19/21 tramadol 50 mg tablet 50 mg PO Q8H PRN #15 tab 08/20/21 hydrocodone 5 mg-acetaminophen 325 1 tab PO TID PRN 4 Days #10 tab 08/22/21 mg tablet Allergies Allergy/AdvReac Type Severity Reaction Status Date / Time No Known Allergies Allergy Verified 07/01/21 09:05 [No Known Allergies*] Review of Systems Review of Systems: Constitutional : No Weight loss, No Fever, No Chills ENT/Mouth :? No sore throat, No Rhinorrhea Eyes: No Swelling, No Redness Cardiovascular : No Chest Pain, No SOB, No Edema Respiratory : No Cough, No Sputum, No Wheezing Gastrointestinal : No Nausea, No Vomiting, No Diarrhea, No abdominal pain, No Hematochezia, No Melena Genitourinary : Positive right flank pain, positive hesitancy /retention. No Dysuria, No Urinary Frequency, No Hematuria, No Urgency? Musculoskeletal : No joint pain, No Myalgias, No Joint Swelling Skin : No Skin Lesions, No rash Neuro : No Weakness, No Numbness, No Dizziness, No Headache Psych : No Anxiety/Panic, No Depression Heme/Lymph: No Bruising, No Lymphadenopathy Endocrine : No Polyuria, No Polydipsia COUNT INCLUDES THE [facility] Past Medical History Attestation statement: The following information was validated with the patient. Source: old records reviewed Medical History Asthma H/O urinary retention Kidney stones Myocardial infarct, old Social History Social History Patient Tobacco Use Status: Never used Tobacco Advance Directives: Yes Advance Directives on File: Yes Advance Directives Date on File: 12/21/20 Physical Exam Vital Signs: Vital Signs: Last Vital Signs Temp 97.9 F 08/23/21 17:25 Pulse 84 08/23/21 17:25 Resp 16 08/23/21 17:46 BP 136/87 08/23/21 17:25 Pulse Ox 98 08/23/21 14:36 BMI result Body Mass Index 33.4 Vital signs have been reviewed as normal and appeared to be correct. Blood pres sure mildly elevated 147/86..? Heart rate normal.? Respiration rate normal. Temperature normal.? Oxygen saturation normal. Appearance: Alert.?Oriented to person, place and time. No acute distress.?Normal affect. Eyes: Pupils equal, round and reactive to light.? ENT: Pharynx normal.?? Neck: Normal inspection.? Neck supple.?? CVS: Heart sounds normal. Normal heart rate and rhythm.? Pulses normal.?? Respiratory: No respiratory distress.? Lung sounds clear to auscultation bilaterally?? Abdomen: Soft and non-tender. Normoactive bowel sounds. Genitourinary: right CVA tenderness? Skin: Skin warm and dry.? Normal skin color.? Normal skin turgor.?? Extremities: No lower extremity edema.? Neuro: Moves all extremities spontaneously. Sensation intact bilaterally. CN II- XII intact. No focal neuro deficits. Ambulates with normal steady gait. Course Course Course Narrative: Patient is a 61-year-old male being evaluated for right flank pain history of known kidney stones. He is presenting due to progressively worsening pain, and personal concern for obstruction, advised by his urologist to come to the emergency department. Labs obtained in triage reveal CBC with mildly low RBC 4.52 and platelet 152, H&H normal. BMP reveals indicated BUN of 23 and creatinine at 1.37. Will obtain CT of the abdomen and pelvis without contrast to evaluate for calculi/hydronephrosis. Urinalysis to exclude infection, postvoid bladder scan for retention. patient to be medicated with 1 L NS, Toradol and hydrocodone for pain, Zofran for nausea. Disposition will be pending results. Reevaluation(s) Reevaluation #1: CT abdomen reveals right-sided hydronephrosis with a 4 x 6 mm right UVJ or proximal ureteral stone, and question of right peripelvic cyst. Consulted urology Dr. Barber who recommends admission for pain management and procedure tomorrow, will contact hospitalist service for admission. pain currently 01/05, will order morphine 2 mg IV. Incidental finding of multiple nodular opacities at the lung bases which may represent residual of old infectious or inflammatory process particularly COVID- 19 the neoplastic process cannot be excluded. Patient reports that he was COVID- 19 positive about 1 month ago, currently is not experiencing any fevers, chills, cough, shortness of breath, difficulty breathing, chest pain, palpitations, recent unintentional weight loss, night sweats. Patient made aware of incidental lung findings from CT. Time: 17:06 Reevaluation #2: Patient accepted for admission to medicine service by hospitalist Dr. Ho, patient agrees with plan of care. Time: 17:36 MDM - Male Genitourinary Medical Records Attestation: I reviewed the patient's medical records. Lab Data Attestation: I reviewed the patient's lab results. Result diagrams: 08/23/21 11:47 08/23/21 11:47 Labs: Lab Results 08/23/21 08/23/21 08/23/21 Range/Units 11:47 11:47 17:30 WBC 8.3 (4.8-10.8) X10*3/uL RBC 4.52 L (4.60-5.80) X10*6/uL Hgb 14.3 (14.0-18.0) g/dl Hct 43.0 (42.0-52.0) % MCV 95.1 (80.0-98.0) fL MCH 31.6 (27.0-33.0) pg MCHC 33.3 (31.0-36.0) g/dl RDW 12.6 (11.0-16.0) % Plt Count 152 L (160-400) X10*3/uL MPV 9.1 L (9.4-12.4) fL Immature Gran % (Auto) 0.5 H (0.0-0.4) % Neut % (Auto) 78.6 H (45-73) % Lymph % (Auto) 10.2 L (20-40) % [place] % (Auto) 10.0 (2-11) % Eos % (Auto) 0.5 (0-4) % Baso % (Auto) 0.2 (0-2) % Lymph # (Auto) 0.8 L (1.2-4.9) X10*3/uL [place] # (Auto) 0.8 (0.1-1.2) X10*3/uL Eos # (Auto) 0.0 (0.0-0.4) X10*3/uL Baso # (Auto) 0.0 (0.0-0.2) X10*3/uL Abs Immat Gran (auto) 0.04 H (0.00-0.03) X10*3/uL Absolute Neuts (auto) 6.5 (2.0-8.3) x10*3/uL Absolute Nucleated RBC 0.000 (0.0-0.012) X10*3/uL Nucleated RBC % (auto) 0.0 (0.0-0.2) /100WBC Sodium 137 (135-145) mmol/L Potassium 4.3 (3.3-5.1) mmol/L Chloride 106 (96-108) mmol/L Carbon Dioxide 20 L (22-29) mmol/L Anion Gap 15 (12-20) BUN 23 H (9-16) mg/dL Creatinine 1.37 (0.5-1.4) mg/dL Estim Creat Clear Calc 65.6 Estimated GFR 53 Random Glucose 169 H (60-115) mg/dL Calcium 9.3 (8.4-10.2) mg/dL Urine Color YELLOW Urine Appearance CLEAR Urine pH 5.5 (5.0-8.0) Ur Specific [place] 1.025 (1.005-1.025) Urine Protein NEG (NEG-TRACE) MG/DL Urine Glucose (UA) NEG (NEG) MG/DL Urine Ketones NEG (NEG) MG/DL Urine Blood NEG (NEG) Urine Nitrite NEG (NEG) Ur Leukocyte Esterase NEG (NEG) Imaging Data CT scan - abdomen: Radiologist's impression: CT/CT abdomen pelvis wo con IMPRESSION: Right hydronephrosis from a 4 x 6 mm right UPJ or proximal ureteral stone. Small bilateral renal stones. Left renal peripelvic cysts and question right peripelvic cyst. Slightly enlarged prostate gland. ? Diverticulosis. No evidence of diverticulitis. ? Multiple new nodular opacities seen at the lung bases. This could represent residual of old infectious or inflammatory process, in particular Covid infection. Neoplastic process cannot be excluded. Clinical correlation and follow-up chest CT recommended. Discharge Plan Discharge Clinical Impression: Hydronephrosis, Nephrolithiasis Patient Disposition: Admitted As Inpatient
[2021-08-23] MEDS: Ketorolac Tromethamine 30 MG/ML VIAL IVPUSH (15:38)
[2021-08-23] MEDS: HYDROcodone Bit/Acetam 5/325 TABLET 1 TAB PO (15:39)
[2021-08-23] MEDS: 0.9 % Sodium Chloride 1,000 ML 999 ML IV (15:45)
[2021-08-23] MEDS: ondansetron HCL 4 MG/2 ML VIAL IVPUSH ×2 (15:49→19:44)
[2021-08-23 17:25] VITALS: BP 136/87; PULSE 84; RESP 16; TEMP 36.6
[2021-08-23 17:35] LABS: Appearance Urine CLEAR; Color Urine YELLOW; Glucose Urine UA NEG (NEG); Leukocyte Esterase Urine NEG (NEG); Nitrite Urine NEG (NEG); PH 5.5 (5.0-8.0); Specific Gravity - Urine 1.025 (1.005-1.025); Urine Blood NEG (NEG); Urine Ketones NEG (NEG); Urine Protein NEG (NEG-TRACE)
[2021-08-23 17:46] VITALS: RESP 16
[2021-08-23] MEDS: Morphine Sulfate 2 MG/ML CARTRIDGE IVPUSH (17:46)
--- NOTE | 2021-08-23 18:01 | PM.IMHP ---
History of Present Illness Date of Service: 08/23/21 Attending physician on admission: Roxana Ho Chief Complaint: right flank pain 61-year-old gentleman with past medical history significant for nephrolithiasis, coronary artery disease, elevated PSA who presented to emergency room with 3 to 5 day history of localize right flank pain constant with no radiation, associated with decreased urination, nausea, he denies associated fever chills, no headache no urinary burning or frequency, he states he passed 2 kidney stones 3 days ago an additional 2 kidney stones were past 2 days ago, he is being followed by Dr. Barber and has been taking tramadol, oxycodone, Flomax and Naprosyn but since symptoms were ongoing he contacted Dr. Barber and he recommended him to go to the emergency room, in the ER CT abdomen and pelvis was obtained that showed right hydronephrosis from 4 in to 6 mm right UPJ or proximal ureteral stone, small bilateral renal stones, left renal peripelvic cysts and question right peripelvic cyst, multiple new nodule opacities was seen at the lung bases likely representing residual or or infectious or inflammatory process however neoplastic process cannot be excluded therefore follow-up CT chest is recommended. patient treated in the emergency room with IV fluids, Zofran, IV morphine, oxycodone but since patient continued to have pain with rising BUN and creatinine therefore he will be admitted to [facility] to be evaluated by Urology and to possibly undergo cystoscopy and lithotripsy. Review of Systems Review of Systems: General no headache , no dizziness no fever chills. CVS no chest pain, no palpitation. Respiratory no cough, no sputum production no respiratory distress. Gastrointestinal mild nausea, almost vomited, no abdominal pain Skin no rash Yes all other systems are reviewed and are negative [facility] Medical History Asthma H/O urinary retention Kidney stones Myocardial infarct, old Pertinent family history: grandfather had prostate cancer Social History (Updated 08/23/21 @ 18:10 by Roxana Ho MD) Patient Tobacco Use Status: Never used Tobacco Advance Directives: Yes Advance Directives on File: Yes Advance Directives Date on File: 12/21/20 service: No Current occupational status: employed Meds Allergies Allergy/AdvReac Type Severity Reaction Status Date / Time No Known Allergies Allergy Verified 07/01/21 09:05 [No Known Allergies*] Active Medications: Current Medications Acetaminophen (Acetaminophen 325 Mg Tablet) 650 mg PO Q6H PRN PRN Reason: Pain, Mild (Pain Scale 1-3) Dextrose/Sodium Chloride (D5ns) 1,000 mls @ 100 mls/hr IVCONT .Q10H [facility] Morphine Sulfate (Morphine Sulfate 4 Mg/Ml Cartridge) 4 mg IVPUSH Q4H PRN; Protocol PRN Reason: Pain, Severe (Pain Scale 7-10) Ondansetron HCl (Ondansetron Hcl 4 Mg/2 Ml Vial) 4 mg IVPUSH Q8H PRN PRN Reason: Nausea and Vomiting Oxycodone HCl (Oxycodone Hcl Immed Release 5 Mg Tablet) 5 mg PO Q6H PRN PRN Reason: Pain, Severe (Pain Scale 7-10) Pharmacy Consult (Consult Rx Perform Med Rec) 1 each MISCELLANE ONCE PRN PRN Reason: Consult order Sodium Chloride (0.9 % Sodium Chloride Flush 3 Ml Syringe) 3 ml IVFLUSH QSHIFT [facility] Home Medications Medication Instructions Recorded Confirmed Last Taken Type albuterol sulfate 90 mcg/actuation 2 puff INHALATION Q4H PRN 08/14/20 08/23/21 Unknown History aerosol inhaler (ProAir HFA) losartan 50 mg tablet 50 mg PO BEDTIME 08/14/20 08/23/21 08/22/21 History montelukast 10 mg tablet 10 mg PO BEDTIME 08/14/20 08/23/21 08/22/21 History zolpidem 10 mg tablet 10 mg PO BEDTIME 08/14/20 08/23/21 08/22/21 History aspirin 81 mg chewable tablet 81 mg PO BEDTIME 08/23/21 08/23/21 08/22/21 History finasteride 5 mg tablet 5 mg PO BEDTIME 08/23/21 08/23/21 08/22/21 History hydrocodone 5 mg-acetaminophen 325 1 tab PO TID PRN 08/23/21 08/23/21 Unknown History mg tablet Physical Exam Vital Signs and Narrative: Vital Signs: Last Vital Signs Temp 97.9 F 08/23/21 17:25 Pulse 84 08/23/21 17:25 Resp 16 08/23/21 17:46 BP 136/87 08/23/21 17:25 Pulse Ox 98 08/23/21 14:36 BMI result Body Mass Index 33.4 Const: Other: General awake alert x3, in no acute distress. HEENT anicteric sclera Neck supple no JVD. CVS regular rate rhythm, Respiratory lungs clear to auscultation, no respiratory distress, no wheeze, no rhonchi. Gastrointestinal abdomen soft, nontender, bowel sounds audible, no guarding , no rigidity. Extremities no edema. Neuro nonfocal , speech clear. Back localized tenderness to right lower back and flank, no swelling Skin no rash psych appropriate affect Results Labs CBC and Chem 7: 08/23/21 11:47 08/24/21 06:57 Labs: Laboratory Results - last 24 hr 08/23/21 08/23/21 08/23/21 11:47 11:47 17:30 MCV 95.1 MCH 31.6 MCHC 33.3 RDW 12.6 Plt Count 152 L MPV 9.1 L Immature Gran % (Auto) 0.5 H Neut % (Auto) 78.6 H Lymph % (Auto) 10.2 L Grant % (Auto) 10.0 Eos % (Auto) 0.5 Baso % (Auto) 0.2 Lymph # (Auto) 0.8 L Grant # (Auto) 0.8 Eos # (Auto) 0.0 Baso # (Auto) 0.0 Abs Immat Gran (auto) 0.04 H Absolute Neuts (auto) 6.5 Absolute Nucleated RBC 0.000 Nucleated RBC % (auto) 0.0 Anion Gap 15 Estim Creat Clear Calc 65.6 Estimated GFR 53 Random Glucose 169 H Calcium 9.3 Urine Color YELLOW Urine Appearance CLEAR Urine pH 5.5 Ur Specific [place] 1.025 Urine Protein NEG Urine Glucose (UA) NEG Urine Ketones NEG Urine Blood NEG Urine Nitrite NEG Ur Leukocyte Esterase NEG Imaging Radiologist's Impressions: Impressions Abdomen/Pelvis CT 08/23/21 16:06 IMPRESSION: Right hydronephrosis from a 4 x 6 mm right UPJ or proximal ureteral stone. Small bilateral renal stones. Left renal peripelvic cysts and question right peripelvic cyst. Slightly enlarged prostate gland. Diverticulosis. No evidence of diverticulitis. Multiple new nodular opacities seen at the lung bases. This could represent residual of old infectious or inflammatory process, in particular Covid infection. Neoplastic process cannot be excluded. Clinical correlation and follow-up chest CT recommended. Fleischner guidelines were followed. Assessment and Plan (1) Nephrolithiasis: Status: Acute (2) Elevated PSA: Status: Acute (3) Hydronephrosis: Status: Acute Plan 61-year-old gentleman with past medical history of coronary artery disease, elevated PSA, nephrolithiasis presented with 3-5 day history of constant right flank pain with no radiation no associated fever chills, workup consistent with obstructing proximal right ureteral stone with hydronephrosis. Renal colic with right hydro nephrosis with 6 mm right proximal ureteral stone admit to medical floor will place on IV fluids, IV morphine and as needed oxycodone for pain control, urinalysis unremarkable urology consult for cystoscopy and stent placement at am, NPO after midnight continue Flomax and finasteride. nephrolithiasis small bilateral renal stones and bilateral peripelvic cyst urology follow-up. mild dehydration no acute renal failure continue IV fluids follow BMP multiple nodular opacities at lung bases recommend outpatient CT chest for follow-up coronary artery disease no chest pain, no palpitations will hold aspirin tonight for possible cystoscopy at a.m. DVT prophylaxis with compression boots will need two night inpatient hospitalization due to renal colic and hydronephrosis will require IV analgesia and urology procedure, since feel to passed stone. Quality Stroke Does the patient have a stroke diagnosis?: No VTE Prior VTE?: No VTE Risk Level:: Medical - moderate - high VTE Device Contraindication: N/A - Device Ordered VTE Drug Contraindication: Treatment Not Indicated
--- NOTE | 2021-08-23 18:10 | PHA.MEDREC ---
MED REC COMPLETE, NO ISSUE Pharmacy Consult ? Medication Reconciliation Pharmacy has completed the medication reconciliation.
[2021-08-23 18:25] LABS: COVID-19 Test Negative (Negative)
[2021-08-23 18:31] VITALS: BP 139/83; PULSE 84; RESP 16; TEMP 36.7; O2SAT 96
[2021-08-23] MEDS: Morphine Sulfate 4 MG/ML CARTRIDGE IVPUSH (19:44)
[2021-08-23] MEDS: oxyCODONE HCl Immed Release 5 MG TABLET PO (21:13)
[2021-08-23 21:29] VITALS: BP 149/88; PULSE 83; RESP 16; TEMP 36.9; O2SAT 99
[2021-08-23] MEDS: Tamsulosin HCL 0.4 MG CAPSULE PO (21:45)
[2021-08-23] MEDS: Dextrose 5 % and 0.9 % NaCl 1,000 ML 100 ML IVCONT (21:45)
[2021-08-23] MEDS: Zolpidem Tartrate 5 MG TABLET PO (21:46)
[2021-08-23] MEDS: Montelukast Sodium 10 MG TABLET PO (21:46)
[2021-08-23] MEDS: Finasteride 5 MG TABLET PO (21:46)
[2021-08-23] MEDS: Losartan Potassium 50 MG TABLET PO (21:47)
[2021-08-23] MEDS: Acetaminophen 325 MG TABLET 650 MG PO (22:49)
[2021-08-24] VITALS (11 sets, daily range): BP systolic 111–154; BP diastolic 74–90; PULSE 70–94; RESP 16–18; TEMP 36.2–37.2; O2SAT 93–98
[2021-08-24] MEDS: Morphine Sulfate 4 MG/ML CARTRIDGE IVPUSH ×2 (01:28→05:29)
[2021-08-24] MEDS: oxyCODONE HCl Immed Release 5 MG TABLET PO ×2 (03:13→09:34)
[2021-08-24] MEDS: Acetaminophen 325 MG TABLET 650 MG PO (05:31)
--- NOTE | 2021-08-24 06:56 | PC.NURSE ---
This rn took over patient's care at 0100. Patient is alert and oriented x3, reporting right flank pain, medicated with prn pain medication per emar. Patient ambulating to bathroom independently with steady gait. vss
[2021-08-24 07:27] LABS: Anion Gap 13 (12-20); Blood Urea Nitrogen 19 mg/dL (9-16); Calcium 9.3 mg/dL (8.4-10.2); Carbon Dioxide 26 mmol/L (22-29); Chloride 105 mmol/L (96-108); Creatinine Clr Calc Pharmacy 69.7; Estimated Glomerular Filt Rate 57; Glucose Random 139 mg/dL (60-115); Potassium 4.7 mmol/L (3.3-5.1); Sodium 139 mmol/L (135-145)
--- NOTE | 2021-08-24 07:35 | PC.NURSE ---
awake, c/o right flank pain 10/10 and nausea. i don't know why the pain meds aren't working? awaits uro consult. aware that he is NPO.
--- NOTE | 2021-08-24 08:44 | PC.NURSE ---
iv was infiltrated. this rn attempted x2 to re establish w/o luck. additional nurse to try.
--- NOTE | 2021-08-24 09:35 | PM.UROCN ---
History of Present Illness Consult details Consult date: 08/24/21 Narrative: Victorino is a pleasant male well known to Urology Presents with right-sided flank pain persistent for the last 3-4 days Not tolerating oral medication Imaging performed which shows 6 mm stone proximal right UPJ Would recommend stent placement given failure to pass Review of Systems Constitutional: Constitutional: Reports as per HPI and Reports no additional constitutional complaints Cardiovascular: Cardiovascular: Reports as per HPI and Reports no additional cardiovascular complaints Respiratory: Respiratory: Reports as per HPI and Reports no additional respiratory complaints Gastrointestinal: Gastrointestinal: Reports as per HPI and Reports no additional gastrointestinal complaints Genitourinary: Genitourinary: Reports as per HPI Musculoskeletal: Musculoskeletal: Reports no additional musculoskeletal complaints and Reports as per HPI Neurologic: Reports system reviewed and no additional complaints, except as documented and Reports as per HPI [facility] Past Medical History Medical History Asthma H/O urinary retention Kidney stones Myocardial infarct, old Social History Social History (Updated 08/23/21 @ 18:10 by Roxana Ho MD) Patient Tobacco Use Status: Never used Tobacco Advance Directives: Yes Advance Directives on File: Yes Advance Directives Date on File: 12/21/20 Meds Allergies Allergy/AdvReac Type Severity Reaction Status Date / Time No Known Allergies Allergy Verified 07/01/21 09:05 [No Known Allergies*] Active Medications: Current Medications Acetaminophen (Acetaminophen 325 Mg Tablet) 650 mg PO Q6H PRN PRN Reason: Pain, Mild (Pain Scale 1-3) Last Admin: 08/24/21 05:31 Dose: 650 mg Documented by: Albuterol Sulfate (Albuterol Sulfate 90 Mcg 8 Gm Inhaler) 2 puff INHALE Q4H PRN PRN Reason: Shortness Of Breath Benzonatate (Benzonatate 100 Mg Capsule) 100 mg PO TID PRN PRN Reason: Cough Finasteride (Finasteride 5 Mg Tablet) 5 mg PO BEDTIME ANGELA Last Admin: 08/23/21 21:46 Dose: 5 mg Documented by: Dextrose/Sodium Chloride (D5ns) 1,000 mls @ 100 mls/hr IVCONT .Q10H ANGELA Last Infusion: 08/24/21 09:34 Dose: Infused Documented by: Losartan Potassium (Losartan Potassium 50 Mg Tablet) 50 mg PO BEDTIME ANGELA; Protocol Last Admin: 08/23/21 21:47 Dose: 50 mg Documented by: Montelukast Sodium (Montelukast Sodium 10 Mg Tablet) 10 mg PO BEDTIME [facility] Last Admin: 08/23/21 21:46 Dose: 10 mg Documented by: Morphine Sulfate (Morphine Sulfate 4 Mg/Ml Cartridge) 4 mg IVPUSH Q4H PRN; Protocol PRN Reason: Pain, Severe (Pain Scale 7-10) Last Admin: 08/24/21 05:29 Dose: 4 mg Documented by: Ondansetron HCl (Ondansetron Hcl 4 Mg/2 Ml Vial) 4 mg IVPUSH Q8H PRN PRN Reason: Nausea and Vomiting Last Admin: 08/23/21 19:44 Dose: 4 mg Documented by: Oxycodone HCl (Oxycodone Hcl Immed Release 5 Mg Tablet) 5 mg PO Q6H PRN PRN Reason: Pain, Severe (Pain Scale 7-10) Last Admin: 08/24/21 09:34 Dose: 5 mg Documented by: Pharmacy Consult (Consult Rx Perform Med Rec) 1 each MISCELLANE ONCE PRN PRN Reason: Consult order Sodium Chloride (0.9 % Sodium Chloride Flush 3 Ml [facility]) [facility] Last Admin: 08/24/21 07:34 Dose: Not Given Documented by: Tamsulosin HCl (Tamsulosin Hcl 0.4 Mg Capsule) 0.4 mg PO BEDTIME [facility] Last Admin: 08/23/21 21:45 Dose: 0.4 mg Documented by: Zolpidem Tartrate (Zolpidem Tartrate 5 Mg Tablet) 5 mg PO BEDTIME [facility] Last Admin: 08/23/21 21:46 Dose: 5 mg Documented by: Home Medications Medication Instructions Recorded Confirmed Last Taken Type albuterol sulfate 90 mcg/actuation 2 puff INHALATION Q4H PRN 08/14/20 08/23/21 Unknown History aerosol inhaler (ProAir HFA) losartan 50 mg tablet 50 mg PO BEDTIME 08/14/20 08/23/21 08/22/21 History montelukast 10 mg tablet 10 mg PO BEDTIME 08/14/20 08/23/21 08/22/21 History zolpidem 10 mg tablet 10 mg PO BEDTIME 08/14/20 08/23/21 08/22/21 History aspirin 81 mg chewable tablet 81 mg PO BEDTIME 08/23/21 08/23/21 08/22/21 History finasteride 5 mg tablet 5 mg PO BEDTIME 08/23/21 08/23/21 08/22/21 History hydrocodone 5 mg-acetaminophen 325 1 tab PO TID PRN 08/23/21 08/23/21 Unknown History mg tablet Physical Exam Vital Signs: Vital Signs: Last Vital Signs Temp 97.8 F 08/24/21 05:19 Pulse 70 08/24/21 05:19 Resp 18 08/24/21 05:29 BP 140/88 H 08/24/21 05:19 Pulse Ox 95 08/24/21 05:19 BMI result Body Mass Index 33.4 Const: General: cooperative, healthy appearing, comfortable and no acute distress Orientation/consciousness: patient oriented x3 HEENT: Face and sinus: Yes normal facial exam Mouth: moist mucous membranes Neck: Neck: Yes normal visual inspection, Yes full ROM and Yes trachea midline Chest: Chest palpation & inspection: normal inspection of the chest Resp: Effort & Inspection: normal respiratory effort, able to speak in complete sentences and no respiratory distress GI: Inspection: Yes normal to inspection Back/Spine/Pelvis: Cervical Spine: normal cervical lordosis Thoracic/Lumbar Spine: thoracic and lumbar spine normal to inspection Skin: General skin exam: no rashes or lesions noted Neuro: General: patient oriented x3, tone normal and moves all extremities Extrem: General: Yes normal to inspection and Yes capillary refill normal Results Labs Result diagrams: 08/23/21 11:47 08/24/21 06:57 Labs: Abnormal lab results 08/23/21 08/23/21 08/24/21 Range/Units 11:47 11:47 06:57 RBC 4.52 L (4.60-5.80) X10*6/uL Plt Count 152 L (160-400) X10*3/uL MPV 9.1 L (9.4-12.4) fL Immature Gran % (Auto) 0.5 H (0.0-0.4) % Neut % (Auto) 78.6 H (45-73) % Lymph % (Auto) 10.2 L (20-40) % Lymph # (Auto) 0.8 L (1.2-4.9) X10*3/uL Abs Immat Gran (auto) 0.04 H (0.00-0.03) X10*3/uL Carbon Dioxide 20 L (22-29) mmol/L BUN 23 H 19 H (9-16) mg/dL Random Glucose 169 H 139 H (60-115) mg/dL Short CBC 08/23/21 Range/Units 11:47 WBC 8.3 (4.8-10.8) X10*3/uL Hgb 14.3 (14.0-18.0) g/dl Hct 43.0 (42.0-52.0) % Plt Count 152 L (160-400) X10*3/uL BMP 08/23/21 08/24/21 11:47 06:57 Sodium 137 139 Potassium 4.3 4.7 Chloride 106 105 Carbon Dioxide 20 L 26 BUN 23 H 19 H Creatinine 1.37 1.29 Calcium 9.3 9.3 Urine 08/23/21 Range/Units 17:30 Urine Color YELLOW Urine Appearance CLEAR Urine pH 5.5 (5.0-8.0) Ur Specific [place] 1.025 (1.005-1.025) Urine Protein NEG (NEG-TRACE) MG/DL Urine Glucose (UA) NEG (NEG) MG/DL All other labs normal. Assessment and Plan (1) Nephrolithiasis: Status: Acute Plan Risks, benefits and alternatives to therapy were discussed. These include but are not limited to infection, bleeding, damage to local organs and tissues, need for further interventions. Anesthetic risks regarding cardiac arrhythmia, blood clots, and potential mortality were discussed. The patient understands the typical recovery time and the outpatient nature of the procedure. After consideration of these risks the patient gives full informed consent and they wish to move ahead with the procedure. Cystoscopy, right retrograde, right stent placement Procedures Date of Service Date of Service: 08/24/21
--- NOTE | 2021-08-24 12:12 | MHC.CM.PN ---
Male 61 DX MIR Flank pain w obstructing stone. He lives with his family. HCP on file. He is planned for Stent placement with Dr Barber today. He is independent with all functional mobility. Vaccinated Moderna x 2. DP home no services. Patient will follow up with Dr Barber. He will arrange for transportation from his family @ [place].
[2021-08-24] MEDS: Morphine Sulfate 4 MG/ML CARTRIDGE SUBCUT (12:40)
[2021-08-24] MEDS: Dextrose 5 % and 0.9 % NaCl 1,000 ML 100 ML IVCONT (14:51)
--- NOTE | 2021-08-24 15:16 | HO.PM.IMPN ---
Subjective Subjective Date of Service: 08/24/21 Interval History: Being followed for right flank pain with 6 mm right proximal ureteric stone, patient complaining of persistent right flank pain, mild nausea, denies fever chills, lost IV site, no other acute issues overnight. Review of Systems Review of Systems: Yes all other systems are reviewed and are negative Physical Exam Vital Signs: Vital Signs: Last Vital Signs Temp 97.1 F 08/24/21 12:30 Pulse 86 08/24/21 12:30 Resp 18 08/24/21 12:30 BP 154/90 H 08/24/21 12:30 Pulse Ox 97 08/24/21 12:30 BMI result Body Mass Index 33.4 Const: Other: General? awake alert x3, in no acute distress. Neck supple no JVD. CVS? regular rate rhythm, Respiratory lungs clear to auscultation, no respiratory distress, no wheeze, no rhonchi. Gastrointestinal abdomen soft, nontender, bowel sounds audible, no guarding , no rigidity. Extremities no edema. Neuro nonfocal , speech clear. Back localized tenderness to right lower back and flank, no swelling Skin no rash psych appropriate affect Objective Data Active Medications Acetaminophen (Acetaminophen 325 Mg Tablet) 650 mg PO Q6H PRN PRN Reason: Pain, Mild (Pain Scale 1-3) Last Admin: 08/24/21 05:31 Dose: 650 mg Documented by: SHAMEKA Albuterol Sulfate (Albuterol Sulfate 90 Mcg 8 Gm Inhaler) 2 puff INHALE Q4H PRN PRN Reason: Shortness Of Breath Benzonatate (Benzonatate 100 Mg Capsule) 100 mg PO TID PRN PRN Reason: Cough Finasteride (Finasteride 5 Mg Tablet) 5 mg PO BEDTIME ANGELA Last Admin: 08/23/21 21:46 Dose: 5 mg Documented by: ISABELA Dextrose/Sodium Chloride (D5ns) 1,000 mls @ 100 mls/hr IVCONT .Q10H ANGELA Last Admin: 08/24/21 14:51 Dose: 100 mls/hr Documented by: PRERNA Losartan Potassium (Losartan Potassium 50 Mg Tablet) 50 mg PO BEDTIME ANGELA; Protocol Last Admin: 08/23/21 21:47 Dose: 50 mg Documented by: ISABELA Montelukast Sodium (Montelukast Sodium 10 Mg Tablet) 10 mg PO BEDTIME [facility] Last Admin: 08/23/21 21:46 Dose: 10 mg Documented by: ISABELA Morphine Sulfate (Morphine Sulfate 4 Mg/Ml Cartridge) 4 mg IVPUSH Q4H PRN; Protocol PRN Reason: Pain, Severe (Pain Scale 7-10) Last Admin: 08/24/21 05:29 Dose: 4 mg Documented by: SHAMEKA Morphine Sulfate (Morphine Sulfate 4 Mg/Ml Cartridge) 4 mg SUBCUT Q4H PRN; Protocol PRN Reason: Pain, Moderate (Pain Scale 4-6 Last Admin: 08/24/21 12:40 Dose: 4 mg Documented by: TYSON Ondansetron HCl (Ondansetron Hcl 4 Mg/2 Ml Vial) 4 mg IVPUSH Q8H PRN PRN Reason: Nausea and Vomiting Last Admin: 08/23/21 19:44 Dose: 4 mg Documented by: Oxycodone HCl (Oxycodone Hcl Immed Release 5 Mg Tablet) 5 mg PO Q6H PRN PRN Reason: Pain, Severe (Pain Scale 7-10) Last Admin: 08/24/21 09:34 Dose: 5 mg Documented by: PRERNA Pharmacy Consult (Consult Rx Perform Med Rec) 1 each MISCELLANE ONCE PRN PRN Reason: Consult order Sodium Chloride (0.9 % Sodium Chloride Flush 3 Ml Syringe) 3 ml IVFLUSH QSHIFT [facility] Last Admin: 08/24/21 07:34 Dose: Not Given Documented by: PRERNA Non-Admin Reason: Med Not Available Tamsulosin HCl (Tamsulosin Hcl 0.4 Mg Capsule) 0.4 mg PO BEDTIME [facility] Last Admin: 08/23/21 21:45 Dose: 0.4 mg Documented by: ISABELA Zolpidem Tartrate (Zolpidem Tartrate 5 Mg Tablet) 5 mg PO BEDTIME [facility] Last Admin: 08/23/21 21:46 Dose: 5 mg Documented by: ISABELA Labs CBC & Chem 7: 08/23/21 11:47 08/24/21 06:57 Labs: Laboratory Results - last 24 hr 08/23/21 08/23/21 08/24/21 17:30 17:51 06:57 Anion Gap 13 Estim Creat Clear Calc 69.7 Estimated GFR 57 Random Glucose 139 H Calcium 9.3 Urine Color YELLOW Urine Appearance CLEAR Urine pH 5.5 Ur Specific [place] 1.025 Urine Protein NEG Urine Glucose (UA) NEG Urine Ketones NEG Urine Blood NEG Urine Nitrite NEG Ur Leukocyte Esterase NEG COVID-19 (LG) Negative COVID-19 Clin Com See Note Assessment and Plan (1) Nephrolithiasis: Status: Acute (2) Elevated PSA: Status: Acute (3) Hydronephrosis: Status: Acute Plan 61-year-old gentleman with past medical history of coronary artery disease, elevated PSA, nephrolithiasis presented with 3-5 day history of constant right flank pain with no radiation no associated fever chills,? workup consistent with obstructing proximal right ureteral stone with hydronephrosis. ?Renal colic with right hydro nephrosis with 6 mm right proximal ureteral stone persistent pain, mild nausea , new IV placed ?continue IV fluids, IV morphine and as needed oxycodone for pain control, urinalysis unremarkable seen by Urology patient will undergo cystoscopy and stent placement this afternoon. ?continue Flomax and finasteride. nephrolithiasis? small bilateral renal stones and bilateral peripelvic cyst urology follow-up. mild dehydration no acute renal failure continue IV fluids renal functions improving. multiple nodular opacities at lung bases recommend outpatient CT chest for follow-up coronary artery disease no chest pain, no palpitations will hold aspirin for cystoscopy. Obesity BMI 33.5 weight reduction recommended DVT prophylaxis with compression boots ?will need two night inpatient hospitalization due to renal colic and hydronephrosis will require? IV analgesia and urology procedure, since feel to passed stone. Quality Stroke Does the patient have a stroke diagnosis?: No VTE Prior VTE?: No VTE Risk Level:: Medical - moderate - high VTE Device Contraindication: N/A - Device Ordered VTE Drug Contraindication: Treatment Not Indicated
--- NOTE | 2021-08-24 17:28 | HO.ANESPROP2 ---
HPI - Anesthesia Eval Consult details Narrative: rt. ureter stone PMFSH Active Problems Active Problems: All Active Problems (Updated 08/23/21 @ 17:24 by Sarah De Paz CNP) Nephrolithiasis (Acute) Elevated PSA (Acute) Neurogenic urinary bladder disorder (Acute) Hydronephrosis (Acute) Nephrolithiasis (Acute) BPH w urinary obs/LUTS (Acute) Past Medical History Medical History Asthma H/O urinary retention Kidney stones Myocardial infarct, old Social History Social History (Updated 08/23/21 @ 18:10 by Roxana Ho MD) Patient Tobacco Use Status: Never used Tobacco Advance Directives Date on File: 12/21/20 service: No Current occupational status: employed Meds Allergies Allergy/AdvReac Type Severity Reaction Status Date / Time No Known Allergies Allergy Verified 07/01/21 09:05 [No Known Allergies*] Active Medications: Current Medications Acetaminophen (Acetaminophen 325 Mg Tablet) 650 mg PO Q6H PRN PRN Reason: Pain, Mild (Pain Scale 1-3) Last Admin: 08/24/21 05:31 Dose: 650 mg Documented by: Albuterol Sulfate (Albuterol Sulfate 90 Mcg 8 Gm Inhaler) 2 puff INHALE Q4H PRN PRN Reason: Shortness Of Breath Benzonatate (Benzonatate 100 Mg Capsule) 100 mg PO TID PRN PRN Reason: Cough Finasteride (Finasteride 5 Mg Tablet) 5 mg PO BEDTIME ANGELA Last Admin: 08/23/21 21:46 Dose: 5 mg Documented by: Dextrose/Sodium Chloride (D5ns) 1,000 mls @ 100 mls/hr IVCONT .Q10H ANGELA Last Admin: 08/24/21 14:51 Dose: 100 mls/hr Documented by: Losartan Potassium (Losartan Potassium 50 Mg Tablet) 50 mg PO BEDTIME ANGELA; Protocol Last Admin: 08/23/21 21:47 Dose: 50 mg Documented by: Montelukast Sodium (Montelukast Sodium 10 Mg Tablet) 10 mg PO BEDTIME ANGELA Last Admin: 08/23/21 21:46 Dose: 10 mg Documented by: Morphine Sulfate (Morphine Sulfate 4 Mg/Ml Cartridge) 4 mg IVPUSH Q4H PRN; Protocol PRN Reason: Pain, Severe (Pain Scale 7-10) Last Admin: 08/24/21 05:29 Dose: 4 mg Documented by: Morphine Sulfate (Morphine Sulfate 4 Mg/Ml Cartridge) 4 mg SUBCUT Q4H PRN; Protocol PRN Reason: Pain, Moderate (Pain Scale 4-6 Last Admin: 08/24/21 12:40 Dose: 4 mg Documented by: Ondansetron HCl (Ondansetron Hcl 4 Mg/2 Ml Vial) 4 mg IVPUSH Q8H PRN PRN Reason: Nausea and Vomiting Last Admin: 08/23/21 19:44 Dose: 4 mg Documented by: Oxycodone HCl (Oxycodone Hcl Immed Release 5 Mg Tablet) 5 mg PO Q6H PRN PRN Reason: Pain, Severe (Pain Scale 7-10) Last Admin: 08/24/21 09:34 Dose: 5 mg Documented by: Pharmacy Consult (Consult Rx Perform Med Rec) 1 each MISCELLANE ONCE PRN PRN Reason: Consult order Sodium Chloride (0.9 % Sodium Chloride Flush 3 Ml Syringe) 3 ml IVFLUSH [facility] Last Admin: 08/24/21 07:34 Dose: Not Given Documented by: Tamsulosin HCl (Tamsulosin Hcl 0.4 Mg Capsule) 0.4 mg PO BEDTIME [facility] Last Admin: 08/23/21 21:45 Dose: 0.4 mg Documented by: Zolpidem Tartrate (Zolpidem Tartrate 5 Mg Tablet) 5 mg PO BEDTIME [facility] Last Admin: 08/23/21 21:46 Dose: 5 mg Documented by: Home Medications Medication Instructions Recorded Confirmed Last Taken Type albuterol sulfate 90 mcg/actuation 2 puff INHALATION Q4H PRN 08/14/20 08/23/21 Unknown History aerosol inhaler (ProAir HFA) losartan 50 mg tablet 50 mg PO BEDTIME 08/14/20 08/23/21 08/22/21 History montelukast 10 mg tablet 10 mg PO BEDTIME 08/14/20 08/23/21 08/22/21 History zolpidem 10 mg tablet 10 mg PO BEDTIME 08/14/20 08/23/21 08/22/21 History aspirin 81 mg chewable tablet 81 mg PO BEDTIME 08/23/21 08/23/21 08/22/21 History finasteride 5 mg tablet 5 mg PO BEDTIME 08/23/21 08/23/21 08/22/21 History hydrocodone 5 mg-acetaminophen 325 1 tab PO TID PRN 08/23/21 08/23/21 Unknown History mg tablet Exam Exam Date and Time: August 24, 2021 1728 Height,Weight and Vital Signs: Height 5 ft 8 in Weight 99.79 kg Last Vital Signs Temp 98.8 F 08/24/21 16:06 Pulse 84 08/24/21 16:06 Resp 18 08/24/21 16:06 BP 152/90 H 08/24/21 16:06 Pulse Ox 97 08/24/21 16:06 Pertinent Lab Results Pertinent Lab Results: Laboratory Tests 08/23/21 08/23/21 08/23/21 11:47 11:47 17:30 WBC 8.3 RBC 4.52 L Hgb 14.3 Hct 43.0 MCV 95.1 MCH 31.6 MCHC 33.3 RDW 12.6 Plt Count 152 L MPV 9.1 L Immature Gran % (Auto) 0.5 H Neut % (Auto) 78.6 H Lymph % (Auto) 10.[address] [facility] % (Auto) 10.0 Eos % (Auto) 0.5 Baso % (Auto) 0.2 Lymph # (Auto) 0.[address] [facility] # (Auto) 0.8 Eos # (Auto) 0.0 Baso # (Auto) 0.0 Abs Immat Gran (auto) 0.04 H Absolute Neuts (auto) 6.5 Absolute Nucleated RBC 0.000 Nucleated RBC % (auto) 0.0 Sodium 137 Potassium 4.3 Chloride 106 Carbon Dioxide 20 L Anion Gap 15 BUN 23 H Creatinine 1.37 Estim Creat Clear Calc 65.6 Estimated GFR 53 Random Glucose 169 H Calcium 9.3 Urine Color YELLOW Urine Appearance CLEAR Urine pH 5.5 Ur Specific [place] 1.025 Urine Protein NEG Urine Glucose (UA) NEG Urine Ketones NEG Urine Blood NEG Urine Nitrite NEG Ur Leukocyte Esterase NEG COVID-19 (LG) COVID-19 Clin Com 08/23/21 08/24/21 17:51 06:57 WBC RBC Hgb Hct MCV MCH MCHC RDW Plt Count MPV Immature Gran % (Auto) Neut % (Auto) Lymph % (Auto) [facility] % (Auto) Eos % (Auto) Baso % (Auto) Lymph # (Auto) [facility] # (Auto) Eos # (Auto) Baso # (Auto) Abs Immat Gran (auto) Absolute Neuts (auto) Absolute Nucleated RBC Nucleated RBC % (auto) Sodium 139 Potassium 4.7 Chloride 105 Carbon Dioxide 26 Anion Gap 13 BUN 19 H Creatinine 1.29 Estim Creat Clear Calc 69.7 Estimated GFR 57 Random Glucose 139 H Calcium 9.3 Urine Color Urine Appearance Urine pH Ur Specific [place] Urine Protein Urine Glucose (UA) Urine Ketones Urine Blood Urine Nitrite Ur Leukocyte Esterase COVID-19 (LG) Negative COVID-19 Clin Com See Note Airway Mallampati Class: II TM Dist: >3cm Neck ROM: Full Heart: RRR Lungs: CTA Assessment and Plan Final Anesthetic Review NPO: Yes ASA Class: III Final Preanesthetic Review: No Changes in Pt Med Stat, Meds/Allgs Chart Reviewed and Consent Obtained/Reviewed Patient Risk: Intermediate Procedure Risk: Low Anesthetic Plan Anesthetic Plan: GA Disposition: Standard PACU
--- NOTE | 2021-08-24 17:43 | MHC.SHP ---
Pre-Procedural Eval Section A Date of Service: 08/24/21 The patient is an INPATIENT: Yes Changes since office visit: No Cold of Flu in the past 2 weeks, No New Medical Problems, No Changes in Medication and No Patient answered all questions The History & Physical has been completed within 30 days and I have reviewed it.: Yes Section B Chief Complaint: R Flank Pain/Obstructing R Proximal Ureteral Stone Details of Present Illness: cystoscopy, right retrograde, right stent placement Allergies: Allergies Allergy/AdvReac Type Severity Reaction Status Date / Time No Known Allergies Allergy Verified 07/01/21 09:05 [No Known Allergies*] Plan Diagnosis/Plan: Unchanged ( cystoscopy, right retrograde, right stent placement) I have reviewed the history and physical and performed a pertinent physical examination on my patient. No changes have occurred unless specified.
[2021-08-24] MEDS: levoFLOXacin 500 MG TABLET PO (17:48)
--- NOTE | 2021-08-24 18:12 | W.PM.OPN ---
Operative Note Operative Note Date of Service: 08/24/21 Narrative: PreOperative Diagnosis: Right proximal ureteric stone Post Operative Diagnosis: right proximal ureteric stone Procedure: cystoscopy, right retrograde, right stent placement Surgeon: Dr Sam Barber Anesthesia: sedation Indications for procedure: present through emergency room with persistent right flank pain. Imaging shows 6 mm proximal right ureteric stone with mild hydronephrosis Procedure: After informed consent was verified the patient was brought to the operating room and placed in a supine position. Anesthesia was administered per protocol. Patient was placed in modified dorsal lithotomy position and prepped and draped in sterile fashion. Safety pause time-out performed. Antibiotics have been given. Cystoscopy performed. Cystoscope introduced per urethra. No abnormality noted. Both ureteric orifices normal position. The right ureter was cannulated and a retrograde examination was performed. filling defect was seen in the proximal right ureter . A Sensor guidewire was placed in good coil was seen within the renal pelvis. A Six [place] by 26 cm double-J stent was advanced over the wire and up to the level of the renal pelvis under fluoroscopic and direct visualization. Good coil was seen within the renal pelvis and in the bladder after deployment. The patient tolerated the procedure well and was transferred in stable condition to the recovery area. Pathology: none Drains: 6 [place] by 26 cm double-J stent
--- NOTE | 2021-08-25 15:01 | PM.DS ---
DS: Providers Provider Date of Service: 08/24/21 Date of admission: 08/23/21 17:57 Primary care physician: Michael Egan MD Consults: 08/23/21 18:20 Consult to Urology Routine Consulting Provider: Sam Barber Reason for consultation: rt hydronephrosis Has provider been notified: No DS: Diagnosis Discharge Diagnosis (1) Nephrolithiasis: Status: Acute (2) Elevated PSA: Status: Acute (3) Hydronephrosis: Status: Acute DS: Summary Hospital Course Hospital Course: Chief Complaint:? right flank pain 61-year-old gentleman with past medical history significant for nephrolithiasis, coronary artery disease, elevated PSA who presented to emergency room with 3 to 5 day history of localize right flank pain constant with no radiation, associated with decreased urination, nausea, he denies associated fever chills, no headache no urinary burning or frequency, he states he passed 2 kidney stones 3 days ago an additional 2 kidney stones were past 2 days ago, he is being followed by Dr. Barber and has been taking tramadol, oxycodone, Flomax and Naprosyn but since symptoms were ongoing he contacted Dr. Barber and he recommended him to go to the emergency room, in the ER? CT abdomen and pelvis was obtained that showed right hydronephrosis from 4 in to 6 mm right UPJ or proximal ureteral stone, small bilateral renal stones, left renal peripelvic cysts and question right peripelvic cyst, multiple new nodule opacities was seen at the lung bases likely representing residual or or infectious or inflammatory process however neoplastic process cannot be excluded therefore follow-up CT chest is recommended. patient treated in the emergency room with IV fluids, Zofran, IV morphine, oxycodone but since patient continued to have pain with rising BUN and creatinine therefore he will be admitted to [facility] to be evaluated by Urology and to possibly undergo cystoscopy and lithotripsy. hospital course 61-year-old gentleman with past medical history of coronary artery disease, elevated PSA, nephrolithiasis presented with 3-5 day history of constant right flank pain with no radiation no associated fever chills,? workup consistent with obstructing proximal right ureteral stone with hydronephrosis, patient admitted to [facility] with a diagnosis of?Renal colic with right hydronephrosis with 6 mm right proximal ureteral stone and treated with IV fluid IV analgesics, was continued on Flomax and finasteride , subsequently patient underwent cystoscopy and right stent placement by Dr. Barber , recommend outpatient follow-up with Dr. Barber. nephrolithiasis? small bilateral renal stones and bilateral peripelvic cyst recommend outpatient urology follow-up . mild dehydration resolved status post IV fluids. multiple nodular opacities at lung bases recommend outpatient CT chest for follow-up. coronary artery disease no chest pain, no palpitations continue home medication Obesity BMI 33.5 weight reduction recommended patient discharge by Dr. Barber after procedure prescription of hydrocodone and Pyridium given to patient. Time Spent with Patient Time attestation: Total time spent providing and/or coordinating discharge services: Discharge coordination time: Greater than 30 minutes Quality: Stroke Does the patient have a stroke diagnosis?: No Physical Exam Vital Signs: Vital Signs: Last Vital Signs Temp 98.8 F 08/24/21 18:47 Pulse 94 08/24/21 18:47 Resp 18 08/24/21 18:47 BP 121/78 08/24/21 18:47 Pulse Ox 96 08/24/21 18:47 BMI result Body Mass Index 33.4 Const: Other: General? awake alert x3, in no acute distress. Neck supple no JVD. CVS? regular rate rhythm, Respiratory lungs clear to auscultation, no respiratory distress, no wheeze, no rhonchi. Gastrointestinal abdomen soft, nontender, bowel sounds audible, no guarding , no rigidity. Extremities no edema. Neuro nonfocal , speech clear. Skin no rash psych appropriate affect DS: Data Data Completed and Pending Completed studies during hospitalization [Text1]: Procedures Dilation of Left Ureter with Intraluminal Device, Via Natural or Artificial Opening Endoscopic (12/21/20) Dilation of Right Ureter with Intraluminal Device, Via Natural or Artificial Opening Endoscopic (08/23/21) Fluoroscopy of Left Kidney, Ureter and Bladder (12/21/20) Fluoroscopy of Right Kidney, Ureter and Bladder (08/23/21) Fragmentation in Bladder, Via Natural or Artificial Opening Endoscopic (12/21/20) Fragmentation in Left Ureter, Via Natural or Artificial Opening Endoscopic (12/21/20) Discharge Plan Discharge Patient Disposition: Home, Self-Care Discharge Diagnosis: right proximal ureteric stent Referrals: Michael Egan MD [Primary Care Provider] - 1 Week Discharge Medications: New phenazopyridine [Pyridium] 100 mg tablet 100 mg PO TID PRN (Reason: spasm) 4 Days Qty: 12 0RF hydrocodone-acetaminophen 5-325 mg tablet 1 tab PO Q4H PRN (Reason: pain) 7 Days Qty: 14 0RF Continued tamsulosin 0.4 mg capsule 0.4 mg PO BEDTIME 90 Days Qty: 90 3RF naproxen [Naprosyn] 500 mg tablet 500 mg PO BID Qty: 14 0RF phenazopyridine [Pyridium] 100 mg tablet 100 mg PO TID PRN (Reason: spasm) 5 Days Qty: 15 0RF hydrocodone-acetaminophen 5-325 mg tablet 1 tab PO TID PRN (Reason: Pain (Scale Score 4-6)) 0RF finasteride 5 mg tablet 5 mg PO BEDTIME 0RF aspirin 81 mg Tablet,Chewable 81 mg PO BEDTIME 0RF zolpidem 10 mg tablet 10 mg PO BEDTIME 0RF montelukast 10 mg tablet 10 mg PO BEDTIME 0RF losartan 50 mg tablet 50 mg PO BEDTIME 0RF albuterol sulfate [ProAir HFA] 90 mcg/actuation HFA aerosol inhaler 2 puff inhalation Q4H PRN (Reason: Shortness Of Breath) 0RF Discharge Orders: Discharge Order (Routine); Ordered 08/24/21 Ordered By: Sam Barber Diet: advance to usual diet Activity on Discharge: As tolerated Stand Alone Forms: Patient Portal Discharge page Care Plan Goals: stones Health Concerns: stones Plan of Treatment: stones Assessment: stones Discharge Date/Time: 08/24/21 19:10
== END 2021-08-24 19:10 | disposition home or self-care (01) | DRG 465 ==
LOC: HO.ED 18:12 → HO.EDOVER 18:15 → HO.S3 08-24 15:53
PROVIDERS: Emergency Medicine; Nurse Practitioner Family; Urology; Admitting Provider Hospitalist; Emergency Provider Emergency Medicine; PCP Internal Medicine; Visit Provider Hospitalist
PROC: 0T768DZ Dilation of Right Ureter with Intraluminal Device, Via Natural or Artificial Opening Endoscopic (ICD-10-PCS; principal; 2021-08-24 17:20)
DX: N13.2 Hydronephrosis with renal and ureteral calculous obstruction (principal); E86.0 Dehydration; E66.9 Obesity, unspecified; Z68.33 Body mass index [BMI] 33.0-33.9, adult; I25.2 Old myocardial infarction; R91.8 Other nonspecific abnormal finding of lung field; Z20.822 Contact with and (suspected) exposure to COVID-19; Z87.442 Personal history of urinary calculi; Z79.1 Long term (current) use of non-steroidal anti-inflammatories (NSAID); Z79.899 Other long term (current) drug therapy
CPT/HCPCS: 36415; 74176; 80048; 81003; 85025; 87635; 99285; C1758; C1769; C2617; J1100; J1885; J2270; J2405; J3010; Q9967

== ENCOUNTER 2021-08-27 16:25 | Emergency (ER) | payer BC, SELFPAY ==
[2021-08-27 16:44] VITALS: BP 169/89; PULSE 100; RESP 19; TEMP 36.1; O2SAT 97; BMI 33.5
[2021-08-27 17:12] LABS: MANUAL DIFF FLAG NO
[2021-08-27 17:14] LABS: Basophils Percent Auto 0.2 % (0-2); Eosinophils Percent Auto 0.6 % (0-4); Hematocrit 40.9 % (42.0-52.0); Hemoglobin 13.6 g/dl (14.0-18.0); Imm Gran Abs Auto 0.06 X10*3/uL (0.00-0.03); Imm Gran Pct Auto 0.9 % (0.0-0.4); Lymphocytes Absolute Auto 1.2 X10*3/uL (1.2-4.9); Lymphocytes Percent Auto 18.9 % (20-40); Mean Corpuscular HGB Conc 33.3 g/dl (31.0-36.0); Mean Corpuscular Hemoglobin 31.2 pg (27.0-33.0); Mean Corpuscular Volume 93.8 fL (80.0-98.0); Mean Platelet Volume 8.6 fL (9.4-12.4); Monocytes Absolute Auto 0.7 X10*3/uL (0.1-1.2); Neutrophils Absolute Auto 4.5 x10*3/uL (2.0-8.3); Neutrophils Percent Auto 68.4 % (45-73); Platelet Count 198 X10*3/uL (160-400); Red Blood Count 4.36 X10*6/uL (4.60-5.80); Red Cell Distribution Width 12.4 % (11.0-16.0); White Blood Count 6.5 X10*3/uL (4.8-10.8)
[2021-08-27 17:26] LABS: Anion Gap 16 (12-20); Blood Urea Nitrogen 19 mg/dL (9-16); Calcium 9.6 mg/dL (8.4-10.2); Carbon Dioxide 25 mmol/L (22-29); Chloride 105 mmol/L (96-108); Creatinine Clr Calc Pharmacy 94.7; Estimated Glomerular Filt Rate > 60; Glucose Random 132 mg/dL (60-115); Sodium 142 mmol/L (135-145)
[2021-08-27 23:27] VITALS: BP 165/100; PULSE 113; RESP 18; TEMP 37.1; O2SAT 95
[2021-08-28 01:23] LABS: Color Urine ORANGE; Glucose Urine UA 100 MG/DL (NEG); Leukocyte Esterase Urine TRACE (NEG); Nitrite Urine POS (NEG); PH 5.5 (5.0-8.0); UACC Culture Trigger YES; Urine Blood 3+ (NEG); Urine Ketones NEG (NEG); Urine Protein 2+ MG/DL (NEG-TRACE)
[2021-08-28 01:24] LABS: Appearance Urine HAZY
[2021-08-28 01:31] LABS: Bacteria Urine 1+ /LPF; RBC Urine 50-75 /HPF (0); Squamous Epithelial Cell Urine 1+ /LPF
--- NOTE | 2021-08-28 03:26 | ED_ITS ---
HPI - Male Genitourinary General Chief complaint: Urogenital-Male Stated complaint: kidney pain post surgery Time Seen by Provider: 08/27/21 21:48 Source: patient Mode of arrival: ambulatory History of Present Illness HPI Narrative: 61-year-old male who presents with lower mid abdominal pain and difficulty passing stool after patient had placement of ureteral stent on Monday with lithotripsy. Patient denies any fever, chills, nausea, vomiting but states that the abdominal discomfort and the difficulty with passing stool has become much worse and more painful. Patient states he has been able to urinate, as a matter fact he continues to constantly urinate and has had to use adult diaper. Related Data Home Medications Medication Instructions Recorded Confirmed albuterol sulfate 90 mcg/actuation 2 puff INHALATION Q4H PRN 08/14/20 08/23/21 aerosol inhaler (ProAir HFA) losartan 50 mg tablet 50 mg PO BEDTIME 08/14/20 08/23/21 montelukast 10 mg tablet 10 mg PO BEDTIME 08/14/20 08/23/21 zolpidem 10 mg tablet 10 mg PO BEDTIME 08/14/20 08/23/21 aspirin 81 mg chewable tablet 81 mg PO BEDTIME 08/23/21 08/23/21 finasteride 5 mg tablet 5 mg PO BEDTIME 08/23/21 08/23/21 hydrocodone 5 mg-acetaminophen 325 1 tab PO TID PRN 08/23/21 08/23/21 mg tablet Previous Rx's Medication Instructions Recorded tamsulosin 0.4 mg capsule 0.4 mg PO BEDTIME 90 Days #90 cap 05/18/21 naproxen 500 mg tablet (Naprosyn) 500 mg PO BID #14 tab 08/19/21 hydrocodone 5 mg-acetaminophen 325 1 tab PO Q4H PRN 7 Days #14 tab 08/24/21 mg tablet phenazopyridine 100 mg tablet 100 mg PO TID PRN 4 Days #12 tab 08/24/21 (Pyridium) phenazopyridine 100 mg tablet 100 mg PO TID PRN 5 Days #15 tab 08/25/21 (Pyridium) oxybutynin chloride 5 mg 5 mg PO DAILY 30 Days #30 tab 08/26/21 tablet,extended release 24 hr Allergies Allergy/AdvReac Type Severity Reaction Status Date / Time No Known Allergies Allergy Verified 07/01/21 09:05 [No Known Allergies*] Review of Systems Review of Systems: Pertinent positives and negatives as stated in HPI and 10 point review of systems is otherwise negative. [facility] Past Medical History Source: nursing notes reviewed Medical History Asthma H/O urinary retention Kidney stones Myocardial infarct, old Social History Social History Alcohol intake: current Alcohol intake frequency: a few times a week Alcohol type: beer Patient Tobacco Use Status: Never used Tobacco Use of substances other than those prescribed or required for medical reasons: No Advance Directives: Yes Advance Directives on File: Yes Advance Directives Date on File: 12/21/20 service: No Current occupational status: employed Physical Exam Vital Signs: Vital Signs: Last Vital Signs Temp 98.2 F 08/28/21 04:32 Pulse 74 08/28/21 04:32 Resp 16 08/28/21 04:32 BP 145/77 H 08/28/21 04:32 Pulse Ox 95 08/28/21 04:32 BMI result Body Mass Index 33.5 VITAL SIGNS: Reviewed. GENERAL: Well developed, well nourished, in no acute distress. HEAD: Normocephalic/atraumatic EYES: PERRLA, EOMI EARS: Ext canals without abnormality OROPHARYNX: no oral lesions noted, posterior pharynx clear LUNGS: Normal breath sounds. No adventitious sounds or accessory muscle use. SpO2<95> CARDIOVASCULAR: Regular rate and rhythm without noted murmurs, no JVD or lower extremity edema. ABDOMEN: Soft, lower midline abdominal tenderness with palpated mass (suspect bladder), non-distended with bowel sounds, mild right flank discomfort MUSCULOSKELETAL: No tenderness, deformities, or effusions noted on gross inspection. EXTREMITIES: No cyanosis, clubbing or edema. SKIN: Inspection of the skin reveals no rashes NEUROLOGIC: Alert and oriented x 4. Strength and sensation to light touch were grossly intact x 4. Course Course Course Narrative: 61-year-old male with history and clinical presentation suspicious for either bladder spasm but suspect urinary retention. On review of bladder scan patient has over 700 cc in his bladder and will place Mane catheter for urinary retention and have patient follow-up in the urology office on Monday. On re-evaluation patient is doing much better after having his bladder drained and patient will be discharged home in stable condition with instructions to follow up with the Urology office on Monday morning. MDM - Male Genitourinary Lab Data Result diagrams: 08/27/21 17:07 08/27/21 17:07 Labs: Lab Results 08/27/21 08/27/21 08/28/21 Range/Units 17: 17:07 01:17 WBC 6.5 (4.8-10.8) X10*3/uL RBC 4.36 L (4.60-5.80) X10*6/uL Hgb 13.6 L (14.0-18.0) g/dl Hct 40.9 L (42.0-52.0) % MCV 93.8 (80.0-98.0) fL MCH 31.2 (27.0-33.0) pg MCHC 33.3 (31.0-36.0) g/dl RDW 12.4 (11.0-16.0) % Plt Count 198 D (160-400) X10*3/uL MPV 8.6 L (9.4-12.4) fL Immature Gran % (Auto) 0.9 H (0.0-0.4) % Neut % (Auto) 68.4 (45-73) % Lymph % (Auto) 18.9 L (20-40) % [place] % (Auto) 11.0 (2-11) % Eos % (Auto) 0.6 (0-4) % Baso % (Auto) 0.2 (0-2) % Lymph # (Auto) 1.2 (1.2-4.9) X10*3/uL [place] # (Auto) 0.7 (0.1-1.2) X10*3/uL Eos # (Auto) 0.0 (0.0-0.4) X10*3/uL Baso # (Auto) 0.0 (0.0-0.2) X10*3/uL Abs Immat Gran (auto) 0.06 H (0.00-0.03) X10*3/uL Absolute Neuts (auto) 4.5 (2.0-8.3) x10*3/uL Absolute Nucleated RBC 0.000 (0.0-0.012) X10*3/uL Nucleated RBC % (auto) 0.0 (0.0-0.2) /100WBC Sodium 142 (135-145) mmol/L Potassium 4.0 (3.3-5.1) mmol/L Chloride 105 (96-108) mmol/L Carbon Dioxide 25 (22-29) mmol/L Anion Gap 16 (12-20) BUN 19 H (9-16) mg/dL Creatinine 0.95 (0.5-1.4) mg/dL Estim Creat Clear Calc 94.7 Estimated GFR > 60 Random Glucose 132 H (60-115) mg/dL Calcium 9.6 (8.4-10.2) mg/dL Urine Color ORANGE A Urine Appearance HAZY Urine pH 5.5 (5.0-8.0) Ur Specific [place] 1.020 (1.005-1.025) Urine Protein 2+ H (NEG-TRACE) MG/DL Urine Glucose (UA) 100 H (NEG) MG/DL Urine Ketones NEG (NEG) MG/DL Urine Blood 3+ H (NEG) Urine Nitrite POS H (NEG) Ur Leukocyte Esterase TRACE H (NEG) Urine RBC 50-75 H (0) /HPF Urine WBC 5-9 H (0-4) /HPF Ur Squamous Epith Cells 1+ /LPF Urine Bacteria 1+ /LPF Discharge Plan Discharge Clinical Impression: Urinary retention Patient Disposition: Home, Self-Care Instructions: Urinary Retention in Men (ED), Mane Catheter Placement and Care (ED) Additional Instructions: 1. Resume all home medications as prescribed. 2. Follow-up at the Urology office on Monday morning. Return to the ER for worsening symptoms. Prescriptions: No Action tamsulosin 0.4 mg capsule 0.4 mg PO BEDTIME 90 Days Qty: 90 3RF naproxen [Naprosyn] 500 mg tablet 500 mg PO BID Qty: 14 0RF phenazopyridine [Pyridium] 100 mg tablet 100 mg PO TID PRN (Reason: spasm) 5 Days Qty: 15 0RF oxybutynin chloride 5 mg tablet extended release 24 hr 5 mg PO DAILY 30 Days Qty: 30 1RF hydrocodone-acetaminophen 5-325 mg tablet 1 tab PO TID PRN (Reason: Pain (Scale Score 4-6)) 0RF finasteride 5 mg tablet 5 mg PO BEDTIME 0RF aspirin 81 mg Tablet,Chewable 81 mg PO BEDTIME 0RF phenazopyridine [Pyridium] 100 mg tablet 100 mg PO TID PRN (Reason: spasm) 4 Days Qty: 12 0RF hydrocodone-acetaminophen 5-325 mg tablet 1 tab PO Q4H PRN (Reason: pain) 7 Days Qty: 14 0RF zolpidem 10 mg tablet 10 mg PO BEDTIME 0RF montelukast 10 mg tablet 10 mg PO BEDTIME 0RF losartan 50 mg tablet 50 mg PO BEDTIME 0RF albuterol sulfate [ProAir HFA] 90 mcg/actuation HFA aerosol inhaler 2 puff inhalation Q4H PRN (Reason: Shortness Of Breath) 0RF Referrals: Sam Barber MD [Physician] - 2 days (Urinary Retention after lithotripsy. Catheter placed) Michael Egan MD [Primary Care Provider] - 2 days
[2021-08-28] MEDS: Acetaminophen 325 MG TABLET 975 MG PO (03:35)
[2021-08-28] MEDS: Ibuprofen 400 MG TABLET PO (03:36)
[2021-08-28] MEDS: Lidocaine HCl 2 % Urojet 10 ML JEL.PF.APP TOPICAL (03:36)
[2021-08-28 04:32] VITALS: BP 145/77; PULSE 74; RESP 16; TEMP 36.8; O2SAT 95
== END 2021-08-28 05:29 | disposition home or self-care (01) ==
PROVIDERS: Emergency Provider Student in an Organized Health Care Education/Training Program; PCP Internal Medicine
DX: R33.9 Retention of urine, unspecified (principal); Z87.442 Personal history of urinary calculi
CPT/HCPCS: 36415; 51702; 51798; 80048; 81001; 85025; 87086; 99284; 99285

== ENCOUNTER 2021-09-06 16:02 | Day surgery (SDC) | payer BC, SELFPAY ==
[2021-09-06] VITALS (11 sets, daily range): BP systolic 93–156; BP diastolic 62–98; PULSE 80–115; RESP 18–20; TEMP 36.2–36.6; O2SAT 85–100; BMI 34.7
--- NOTE | 2021-09-06 | ECG_ITS ---
Test Reason : afib Blood Pressure : / mmHG Vent. Rate : 083 BPM Atrial Rate : 083 BPM P-R Int : 184 ms QRS Dur : 190 ms QT Int : 468 ms P-R-T Axes : 042 -46 074 degrees QTc Int : 549 ms Normal sinus rhythm Left axis deviation Left bundle branch block Abnormal ECG No previous ECGs available Referred By: Sam Barber Electronically Signed By:Serafin Overton
--- NOTE | ~2021-09-06 | FL_ITS ---
EXAMINATION: XR FLUOROSCOPY WITH IMAGES CLINICAL INFORMATION: Urinary tract calculi. Right hydronephrosis. COMPARISON: CT abdomen and pelvis noncontrast 08/23/2021 TECHNIQUE: Fluoroscopy performed by Dr. Sam Barber. Fluoroscopy time: 16 seconds. Cumulative dose: 7.38 mGy. Images: 1 FINDINGS: There is a stent overlying the right urinary tract with proximal end overlying right renal fossa. FL/FL guidance in OR IMPRESSION: Fluoroscopy for urologic procedure.
--- NOTE | 2021-09-06 18:03 | HO.ANESPROP2 ---
[facility] Active Problems Active Problems: All Active Problems (Updated 09/01/21 @ 00:04 by Rick Magdaleno) Nephrolithiasis (Acute) Neurogenic urinary bladder disorder (Acute) Nephrolithiasis (Acute) BPH w urinary obs/LUTS (Acute) Past Medical History Medical History Asthma H/O urinary retention Kidney stones Myocardial infarct, old Functional capacity: independent ambulation Family History Family history of problems with anesthesia: No Surgical History History of Problems with Anesthesia: No Social History Social History Alcohol intake: current Alcohol intake frequency: a few times a month Alcohol type: beer Patient Tobacco Use Status: Never used Tobacco Use of substances other than those prescribed or required for medical reasons: No Are you DNR?: No Advance Directives: Yes (on file) Advance Directives on File: Yes Advance Directives Date on File: 12/21/20 service: No Current occupational status: employed Meds Allergies Allergy/AdvReac Type Severity Reaction Status Date / Time No Known Allergies Allergy Verified 07/01/21 09:05 [No Known Allergies*] Home Medications Medication Instructions Recorded Confirmed Last Taken Type albuterol sulfate 90 mcg/actuation 2 puff INHALATION Q4H PRN 08/14/20 08/23/21 Unknown History aerosol inhaler (ProAir HFA) losartan 50 mg tablet 50 mg PO BEDTIME 08/14/20 08/23/21 09/06/21 12:00 History montelukast 10 mg tablet 10 mg PO BEDTIME 08/14/20 08/23/21 09/06/21 12:00 History zolpidem 10 mg tablet 10 mg PO BEDTIME 08/14/20 08/23/21 09/05/21 History aspirin 81 mg chewable tablet 81 mg PO BEDTIME 08/23/21 08/23/21 09/06/21 12:00 History finasteride 5 mg tablet 5 mg PO BEDTIME 08/23/21 08/23/21 09/06/21 12:00 History hydrocodone 5 mg-acetaminophen 325 1 tab PO TID PRN 08/23/21 08/23/21 Unknown History mg tablet Exam Exam Date and Time: September 06, [id number] Height,Weight and Vital Signs: Height 5 ft 8 in Weight 103.419 kg Last Vital Signs Temp 97.2 F 09/06/21 16:27 Pulse 115 H 09/06/21 16:27 Resp 20 09/06/21 16:27 BP 146/98 H 09/06/21 16:27 Pulse Ox 95 09/06/21 16:27 Airway Mallampati Class: III TM Dist: >3cm Neck ROM: Full Heart: RRR Lungs: CTA Assessment and Plan Final Anesthetic Review Family History of Problems with Anesthesia: No History of Problems with Anesthesia: No ASA Class: II Final Preanesthetic Review: No Changes in Pt Med Stat Patient Risk: Low Procedure Risk: Low Anesthetic Plan Anesthetic Plan: GA Disposition: Standard PACU
--- NOTE | 2021-09-06 18:39 | MHC.SHP ---
Pre-Procedural Eval Section A Date of Service: 09/06/21 The patient is an INPATIENT: No Changes since office visit: No Cold of Flu in the past 2 weeks, No New Medical Problems, No Changes in Medication and No Patient answered all questions The History & Physical has been completed within 30 days and I have reviewed it.: Yes Section B Chief Complaint: Calculus of kidney Details of Present Illness: right renal stone Allergies: Allergies Allergy/AdvReac Type Severity Reaction Status Date / Time No Known Allergies Allergy Verified 07/01/21 09:05 [No Known Allergies*] Review of Systems Sugical H&P ROS: Negative: Constitution, Cardiovascular, Respiratory, Neurological, Psychiatric, Hem-Onc, Allergic/Immunologic, Gastrointestinal, Genitourinary, Musculoskeletal, Integumentary, Endocrine and Eyes/Ears/Nose/Throat Exam Surgical H&P Exam: Normal: HEENT, Normal: Heart, Normal: Lungs, Normal: Extremities, Normal: Abdomen, Normal: Skin and Normal: Neurological Plan Diagnosis/Plan: Unchanged ( here for cystoscopy, right stent removal, right retrograde, right ureteroscopy with laser lithotripsy and stent placement) I have reviewed the history and physical and performed a pertinent physical examination on my patient. No changes have occurred unless specified.
[2021-09-06] MEDS: levoFLOXacin 500 MG TABLET PO (18:46)
[2021-09-06] MEDS: fentaNYL citrate/PF 100 MCG/2 ML VIAL 25 MCG IVPUSH (20:22)
--- NOTE | 2021-09-06 20:50 | HO.POSTANES ---
Post Anesthesia Evaluation Post Anesthesia Evaluation Vital Signs: Vital Signs Temp Pulse Resp BP Pulse Ox 09/06/21 20:39 85 20 99 09/06/21 20:30 87 20 142/87 H 99 09/06/21 20:24 80 20 127/81 100 09/06/21 20:22 18 09/06/21 20:12 81 20 99 09/06/21 20:07 84 18 145/83 H 99 09/06/21 20:02 82 18 132/73 99 09/06/21 19:53 84 18 93/62 94 09/06/21 19:51 97.3 F 84 18 93/62 85 L 09/06/21 16:27 97.2 F 115 H 20 146/98 H 95 Anesthesia: General LMA Mental Status: Awake Pain Control: Satisfactory Nausea/Vomiting: None Hydration: Adequate Anesthesia-Related Issues: No Anes. Related Issues Comments: Pt. has NSR at discharge, no CP,SOB,good vital signs. Brief Atrial flutter resolved, Pt. needs to see his PCP and licensed practical nurse tomorrow.
[2021-09-06] MEDS: oxyCODONE HCl Immed Release 5 MG TABLET PO (21:03)
--- NOTE | 2021-09-10 16:03 | P.OP_ITS ---
Operative Note Operative Note Date of Service: 09/06/21 Narrative: PreOperative Diagnosis: Right UPJ stone Post Operative Diagnosis: Right renal stone Procedure: - cystoscopy, removal right indwelling stent - right dilatation of ureteric orifice under fluoroscopy - right flexible ureteroscopy, laser lithotripsy, stone basketing Surgeon: Dr Sam Barber Anesthesia: General Indications for procedure: Prior stent placed for right UPJ stone with right renal stone. Here for right ureteroscopy as not tolerating stent placement and pain persistent until ESWL Procedure: After informed consent was verified patient was brought to the operating placed in supine position. Anesthesia was administered per protocol. Patient was placed in modified dorsal lithotomy position and prepped and draped in a sterile fashion. Safety pause time-out and side of surgery confirmed. Antibiotics confirmed. 22 [place] cystoscope was inserted per urethra. Bladder was normal in its entirety. Both ureteric orifices were in normal position. The stent coming from the right ureteric orifice was grasped and removed. Right orifice was cannulated and a retrograde examination was performed. No filling defects seen. . A Sensor guidewire was placed up to the level of the renal pelvis under fluoroscopy. The rigid cystoscope was removed and the inner cannula of ureteric access sheath was used under fluoroscopy to dilate the ureteric orifice. The ureteric access sheath was placed and the inner cannula with access wire rem thomas. The digital flexible ureteral scope was placed. The kidney was examined. There was debris which appears to be result of the stone is broken up kidney. This was irrigated clear. Decision was made not to leave a stent The bladder was emptied. The patient tolerated the procedure well and was extubated in the operating room, and transferred in stable condition to the recovery area. Pathology: None Drains: None
== END 2021-09-06 20:58 | disposition home or self-care (01) ==
PROVIDERS: PCP Internal Medicine; Visit Provider Urology
PROC: (CPT 52005; principal; 2021-09-06 15:40)
DX: N20.0 Calculus of kidney (principal); N40.1 Benign prostatic hyperplasia with lower urinary tract symptoms; N13.8 Other obstructive and reflux uropathy; J45.909 Unspecified asthma, uncomplicated; I25.2 Old myocardial infarction; Z79.82 Long term (current) use of aspirin; Z79.899 Other long term (current) drug therapy
CPT/HCPCS: 52005; 93005; C1758; C1769; J1885; J2405; J3010; Q9967

== ENCOUNTER → 2021-09-08 10:47 | Outpatient (BNVA) | payer BC, SELFPAY | PROVIDERS: PCP Internal Medicine; Referring Provider Internal Medicine; Visit Provider Internal Medicine | DX: Z13.89 Encounter for screening for other disorder (principal) ==

== ENCOUNTER 2021-09-10 03:19 | Day surgery (SDC) | payer BC, SELFPAY ==
[2021-09-10] VITALS (20 sets, daily range): BP systolic 91–189; BP diastolic 51–89; PULSE 96–129; RESP 16–25; TEMP 36.8–37.4; O2SAT 93–98; BMI 34.9
--- NOTE | 2021-09-10 | ECG_ITS ---
Test Reason : chest pressure Blood Pressure : / mmHG Vent. Rate : 103 BPM Atrial Rate : 103 BPM P-R Int : 166 ms QRS Dur : 192 ms QT Int : 406 ms P-R-T Axes : 046 -45 099 degrees QTc Int : 531 ms Sinus tachycardia Left axis deviation Left bundle branch block Abnormal ECG When compared with ECG of 06-SEP-2021 19:56, No significant changes seen Referred By: Generic ED Physician Electronically Signed By:Serafin Overton
--- NOTE | ~2021-09-10 | CT_ITS ---
EXAMINATION: CT ABDOMEN AND PELVIS WITH CONTRAST CLINICAL INFORMATION: History of renal colic COMPARISON: 08/15/2021 TECHNIQUE: Multidetector volumetric images were obtained from the superior aspect of the liver through the pubic symphysis following administration 85 mL of Omnipaque 350 intravenous contrast. Sagittal and coronal reformatted images were obtained on the technologist's workstation. Oral contrast: No This CT examination was performed using dose optimization techniques as appropriate, variously including the following: *Automated exposure control *Adjustment of mA and/or kV according to patient size (this includes techniques or standardized protocols for targeted exams where dose is matched to indication/reason for exam; i.e. extremities or head) *Use of iterative reconstruction technique DLP: 880 mGy-cm FINDINGS: LUNG BASES: The visualized lung bases are unremarkable. LIVER, GALLBLADDER, AND BILIARY TREE: The liver is normal in size, shape, and attenuation. No focal hepatic lesion or biliary ductal dilatation is present. Gallbladder unremarkable. PANCREAS: Unremarkable. SPLEEN: Unremarkable. ADRENAL GLANDS: Unremarkable. KIDNEYS AND URETERS: There is moderate right hydroureteronephrosis upstream from a 7 x 5 mm calculus within the distal right ureter, 1 cm proximal vascular junction. There is slightly diminished/delayed enhancement of the right kidney with respect to the left and right perinephric fat stranding. Multiple left parapelvic cysts are present. BLADDER: There 3 additional calculi within the bladder which are new from the prior exam. Contains a Mane catheter. GASTROINTESTINAL TRACT: The small and large bowel are unremarkable. The appendix is unremarkable. ABDOMINAL WALL: No significant hernia is appreciated. LYMPH NODES: Normal. VASCULAR: Aorta mildly atherosclerotic, caliber. Patent venous structures. PELVIC VISCERA: Mild prostatomegaly. Seminal vesicles unremarkable. OSSEOUS STRUCTURES: No acute or suspicious osseous abnormalities. CT/CT abdomen pelvis w con IMPRESSION: * There is a 7 x 5 mm calculus within the distal right ureter, 1 cm proximal to the ureterovesical junction associated with [id number] upstream hydroureteronephrosis and diminished/delayed enhancement of the right kidney with respect to the left indicative of adenopathy. * There are 3 additional calculi within the bladder which was not present on the prior exam.
--- NOTE | ~2021-09-10 | FL_ITS ---
EXAMINATION: XR FLUOROSCOPY WITH IMAGES CLINICAL INFORMATION: Right ureteral calculus. COMPARISON: CT abdomen and pelvis 09/10/2021 TECHNIQUE: Fluoroscopy performed by Dr. Sam Barber. Fluoroscopy time: 2 seconds Cumulative dose: 0.43 mGy Images: 1 FINDINGS: Single spot film of the pelvis shows questionable distal right ureteral calculus partly overlying the superior pubic ramus on this view. FL/FL guidance in OR IMPRESSION: Fluoroscopy for urologic procedure.
[2021-09-10 04:01] LABS: MANUAL DIFF FLAG NO
[2021-09-10 04:02] LABS: Basophils Percent Auto 0.5 % (0-2); Eosinophils Absolute Auto 0.1 X10*3/uL (0.0-0.4); Eosinophils Percent Auto 1.2 % (0-4); Hematocrit 38.1 % (42.0-52.0); Hemoglobin 12.9 g/dl (14.0-18.0); Imm Gran Abs Auto 0.02 X10*3/uL (0.00-0.03); Imm Gran Pct Auto 0.3 % (0.0-0.4); Lymphocytes Absolute Auto 0.8 X10*3/uL (1.2-4.9); Lymphocytes Percent Auto 13.8 % (20-40); Mean Corpuscular HGB Conc 33.9 g/dl (31.0-36.0); Mean Corpuscular Hemoglobin 31.5 pg (27.0-33.0); Mean Corpuscular Volume 92.9 fL (80.0-98.0); Mean Platelet Volume 8.9 fL (9.4-12.4); Monocytes Absolute Auto 0.7 X10*3/uL (0.1-1.2); Neutrophils Absolute Auto 4.4 x10*3/uL (2.0-8.3); Neutrophils Percent Auto 72.2 % (45-73); Platelet Count 201 X10*3/uL (160-400); White Blood Count 6.1 X10*3/uL (4.8-10.8)
[2021-09-10 04:07] LABS: Prothrombin Time 11.7 SEC (9.9-13.0)
--- NOTE | 2021-09-10 04:14 | ED.ABDPAIN ---
HPI - Abdominal Pain General Chief Complaint: Abdominal Pain Stated Complaint: kidney pain, radiates across body Time Seen by Provider: 09/10/21 03:36 Source: patient Mode of arrival: ambulatory History of Present Illness HPI narrative: 61-year-old male with significant past medical history of neurogenic bladder, kidney stones, hypertension, LBBB, neurogenic bladder disorder who presents with acute onset of right back/flank pain that began at approximately 22:00 and was associated with nausea, vomiting and he states it wraps all the way around to the front of his abdomen and he feels chills but denies shortness of breath, chest pain/palpitations. Related Data Home Medications Medication Instructions Recorded Confirmed albuterol sulfate 90 mcg/actuation 2 puff INHALATION Q4H PRN 08/14/20 09/08/21 aerosol inhaler (ProAir HFA) losartan 50 mg tablet 50 mg PO BEDTIME 08/14/20 09/08/21 montelukast 10 mg tablet 10 mg PO BEDTIME 08/14/20 09/08/21 zolpidem 10 mg tablet 10 mg PO BEDTIME 08/14/20 09/08/21 aspirin 81 mg chewable tablet 81 mg PO BEDTIME 08/23/21 09/08/21 finasteride 5 mg tablet 5 mg PO BEDTIME 08/23/21 09/08/21 Previous Rx's Medication Instructions Recorded tamsulosin 0.4 mg capsule 0.4 mg PO BEDTIME 90 Days #90 cap 05/18/21 hydrocodone 5 mg-acetaminophen 325 1 tab PO Q4H PRN 7 Days #14 tab 08/24/21 mg tablet rosuvastatin 20 mg tablet (Crestor) 20 mg PO DAILY #90 tab 09/08/21 Allergies Allergy/AdvReac Type Severity Reaction Status Date / Time No Known Allergies Allergy Verified 09/10/21 03:32 [No Known Allergies*] Review of Systems Review of Systems Pertinent positives and negatives as stated in HPI 10 point review of systems is otherwise negative. [facility] Past Medical History Source: nursing notes reviewed Medical History Asthma Essential hypertension H/O urinary retention Kidney stones LBBB (left bundle branch block) Myocardial infarct, old Surgical History No pertinent past surgical history Family History Family History Father No problems noted. Mother No problems noted. Social History Social History Alcohol intake: current Alcohol intake frequency: holidays/special occasions only Alcohol type: beer Patient Tobacco Use Status: Never used Tobacco Smoked in Last 30 Days: No Use of substances other than those prescribed or required for medical reasons: No Advance Directives: Yes Advance Directives on File: Yes Advance Directives Date on File: 12/21/20 service: No Current occupational status: employed Physical Exam ED Vital Signs: Vital Signs - 24 hr 09/10/21 03:27 09/10/21 03:58 09/10/21 04:17 Temperature 98.7 F Pulse Rate 108 H 99 Respiratory Rate 24 H 16 18 Blood Pressure 189/83 H 165/89 H Pulse Oximetry 96 95 09/10/21 04:56 09/10/21 05:57 09/10/21 06:12 Temperature 98.8 F Pulse Rate 107 H Respiratory Rate 16 16 16 Blood Pressure 134/84 Pulse Oximetry 93 BMI result Body Mass Index 34.9 VITAL SIGNS: Reviewed. GENERAL: Well developed, well nourished, moderate to severe distress. HEAD: Normocephalic/atraumatic EYES: PERRLA, EOMI EARS: Ext canals without abnormality OROPHARYNX: no oral lesions noted, posterior pharynx clear LUNGS: Normal breath sounds. No adventitious sounds or accessory muscle use. SpO2<96> CARDIOVASCULAR: Regular rate and rhythm without noted murmurs, no JVD or lower extremity edema. ABDOMEN: Elevated BMI, Soft, tenderness at right flank as well as across abdomen, non-distended with bowel sounds. MUSCULOSKELETAL: No tenderness, deformities, or effusions noted on gross inspection. EXTREMITIES: No cyanosis, clubbing or edema. SKIN: Inspection of the skin reveals no rashes NEUROLOGIC: Alert and oriented x 4. Strength and sensation to light touch were grossly intact x 4. Course Course Course Narrative: 61-year-old male with history and clinical presentation concerning for obstructive uropathy, on review of prior CT scans less likely concern for AAA and doubt UTI or diverticulitis. Review of all investigations significant for hydroureter nephrosis, renal colic, renal stone 7 x 5 mm on the right. Multiple rounds of pain medication and patient is somewhat comfortable, no longer nauseous and I discussed this case with the urologist who agrees to see the patient here in the emergency room. MDM - Abdominal Pain Lab Data Result diagrams: 09/10/21 03:55 09/10/21 03:55 Labs: Lab Results 09/10/21 09/10/21 09/10/21 Range/Units 03:55 03:55 03:55 WBC 6.1 (4.8-10.8) X10*3/uL RBC 4.10 L (4.60-5.80) X10*6/uL Hgb 12.9 L (14.0-18.0) g/dl Hct 38.1 L (42.0-52.0) % MCV 92.9 (80.0-98.0) fL MCH 31.5 (27.0-33.0) pg MCHC 33.9 (31.0-36.0) g/dl RDW 12.0 (11.0-16.0) % Plt Count 201 (160-400) X10*3/uL MPV 8.9 L (9.4-12.4) fL Immature Gran % (Auto) 0.3 (0.0-0.4) % Neut % (Auto) 72.2 (45-73) % Lymph % (Auto) 13.8 L (20-40) % [place] % (Auto) 12.0 H (2-11) % Eos % (Auto) 1.2 (0-4) % Baso % (Auto) 0.5 (0-2) % Lymph # (Auto) 0.8 L (1.2-4.9) X10*3/uL [place] # (Auto) 0.7 (0.1-1.2) X10*3/uL Eos # (Auto) 0.1 (0.0-0.4) X10*3/uL Baso # (Auto) 0.0 (0.0-0.2) X10*3/uL Abs Immat Gran (auto) 0.02 (0.00-0.03) X10*3/uL Absolute Neuts (auto) 4.4 (2.0-8.3) x10*3/uL Absolute Nucleated RBC 0.000 (0.0-0.012) X10*3/uL Nucleated RBC % (auto) 0.0 (0.0-0.2) /100WBC PT 11.7 (9.9-13.0) SEC INR 1.0 (0.9-1.1) Sodium 137 (135-145) mmol/L Potassium 3.9 (3.3-5.1) mmol/L Chloride 104 (96-108) mmol/L Carbon Dioxide 21 L (22-29) mmol/L Anion Gap 16 (12-20) BUN 17 H (9-16) mg/dL Creatinine 1.06 (0.5-1.4) mg/dL Estim Creat Clear Calc 86.7 Estimated GFR > 60 Random Glucose 155 H (60-115) mg/dL Calcium 9.6 (8.4-10.2) mg/dL Total Bilirubin 0.8 (0.0-1.0) mg/dL AST 25 (5-37) U/L ALT 27 (0-40) U/L Alkaline Phosphatase 84 (39-117) U/L Troponin I High Sens (<3.5-35.0) ng/L Total Protein 6.8 (6.5-8.0) g/dL Albumin 4.1 (3.5-5.0) g/dL Urine Color Urine Appearance Urine pH (5.0-8.0) Ur Specific [place] (1.005-1.025) Urine Protein (NEG-TRACE) MG/DL Urine Glucose (UA) (NEG) MG/DL Urine Ketones (NEG) MG/DL Urine Blood (NEG) Urine Nitrite (NEG) Ur Leukocyte Esterase (NEG) Urine RBC (0) /HPF Urine WBC (0-4) /HPF Ur Squamous Epith Cells /LPF Urine Bacteria /LPF Urine Mucus /LPF 09/10/21 09/10/21 Range/Units 03:55 06:20 WBC (4.8-10.8) X10*3/uL RBC (4.60-5.80) X10*6/uL Hgb (14.0-18.0) g/dl Hct (42.0-52.0) % MCV (80.0-98.0) fL MCH (27.0-33.0) pg MCHC (31.0-36.0) g/dl RDW (11.0-16.0) % Plt Count (160-400) X10*3/uL MPV (9.4-12.4) fL Immature Gran % (Auto) (0.0-0.4) % Neut % (Auto) (45-73) % Lymph % (Auto) (20-40) % [place] % (Auto) (2-11) % Eos % (Auto) (0-4) % Baso % (Auto) (0-2) % Lymph # (Auto) (1.2-4.9) X10*3/uL [place] # (Auto) (0.1-1.2) X10*3/uL Eos # (Auto) (0.0-0.4) X10*3/uL Baso # (Auto) (0.0-0.2) X10*3/uL Abs Immat Gran (auto) (0.00-0.03) X10*3/uL Absolute Neuts (auto) (2.0-8.3) x10*3/uL Absolute Nucleated RBC (0.0-0.012) X10*3/uL Nucleated RBC % (auto) (0.0-0.2) /100WBC PT (9.9-13.0) SEC INR (0.9-1.1) Sodium (135-145) mmol/L Potassium (3.3-5.1) mmol/L Chloride (96-108) mmol/L Carbon Dioxide (22-29) mmol/L Anion Gap (12-20) BUN (9-16) mg/dL Creatinine (0.5-1.4) mg/dL Estim Creat Clear Calc Estimated GFR Random Glucose (60-115) mg/dL Calcium (8.4-10.2) mg/dL Total Bilirubin (0.0-1.0) mg/dL AST (5-37) U/L ALT (0-40) U/L Alkaline Phosphatase (39-117) U/L Troponin I High Sens 5.2 (<3.5-35.0) ng/L Total Protein (6.5-8.0) g/dL Albumin (3.5-5.0) g/dL Urine Color YELLOW Urine Appearance HAZY Urine pH 5.5 (5.0-8.0) Ur Specific [place] 1.020 (1.005-1.025) Urine Protein NEG (NEG-TRACE) MG/DL Urine Glucose (UA) NEG (NEG) MG/DL Urine Ketones NEG (NEG) MG/DL Urine Blood 3+ H (NEG) Urine Nitrite NEG (NEG) Ur Leukocyte Esterase NEG (NEG) Urine RBC 10-14 H (0) /HPF Urine WBC 0 (0-4) /HPF Ur Squamous Epith Cells TRACE /LPF Urine Bacteria NONE /LPF Urine Mucus TRACE /LPF ECG Data Attestation: I personally reviewed and interpreted this ECG as follows: Prior ECG tracings: available for review Interpretation: Sinus tachycardia, HR-103, no STEMI, LBBB, OH within normal limits. Discharge Plan Discharge Clinical Impression: Renal colic, Ureterolithiasis Patient Disposition: Still a Patient Prescriptions: No Action tamsulosin 0.4 mg capsule 0.4 mg PO BEDTIME 90 Days Qty: 90 3RF finasteride 5 mg tablet 5 mg PO BEDTIME 0RF aspirin 81 mg Tablet,Chewable 81 mg PO BEDTIME 0RF hydrocodone-acetaminophen 5-325 mg tablet 1 tab PO Q4H PRN (Reason: pain) 7 Days Qty: 14 0RF zolpidem 10 mg tablet 10 mg PO BEDTIME 0RF montelukast 10 mg tablet 10 mg PO BEDTIME 0RF losartan 50 mg tablet 50 mg PO BEDTIME 0RF albuterol sulfate [ProAir HFA] 90 mcg/actuation HFA aerosol inhaler 2 puff inhalation Q4H PRN (Reason: Shortness Of Breath) 0RF rosuvastatin [Crestor] 20 mg tablet 20 mg PO DAILY Qty: 90 3RF
[2021-09-10] MEDS: 0.9 % Sodium Chloride 1,000 ML 999 ML IV (04:16)
[2021-09-10] MEDS: fentaNYL citrate/PF 100 MCG/2 ML VIAL 25 MCG IVPUSH (04:17)
[2021-09-10 04:21] LABS: Alanine Aminotransferase 27 U/L (0-40); Albumin Level 4.1 g/dL (3.5-5.0); Alkaline Phosphatase 84 U/L (39-117); Anion Gap 16 (12-20); Aspartate Amino Transferase 25 U/L (5-37); Bilirubin Total 0.8 mg/dL (0.0-1.0); Blood Urea Nitrogen 17 mg/dL (9-16); Calcium 9.6 mg/dL (8.4-10.2); Carbon Dioxide 21 mmol/L (22-29); Chloride 104 mmol/L (96-108); Creatinine Clr Calc Pharmacy 86.7; Estimated Glomerular Filt Rate > 60; Glucose Random 155 mg/dL (60-115); Potassium 3.9 mmol/L (3.3-5.1); Sodium 137 mmol/L (135-145); Total Protein 6.8 g/dL (6.5-8.0)
[2021-09-10 04:23] LABS: Troponin-I High Sensitivity 5.2 ng/L (<3.5-35.0)
[2021-09-10] MEDS: HYDROmorphone HCl 0.5 MG/0.5 ML SYRINGE IVPUSH ×3 (04:56→07:50)
[2021-09-10 06:26] LABS: Appearance Urine HAZY; Color Urine YELLOW; Glucose Urine UA NEG (NEG); Leukocyte Esterase Urine NEG (NEG); Nitrite Urine NEG (NEG); PH 5.5 (5.0-8.0); UACC Culture Trigger NO; Urine Blood 3+ (NEG); Urine Ketones NEG (NEG); Urine Protein NEG (NEG-TRACE)
[2021-09-10 06:41] LABS: Mucus Urine TRACE /LPF; Squamous Epithelial Cell Urine TRACE /LPF; WBC Urine 0 /HPF (0-4)
[2021-09-10] MEDS: HYDROmorphone HCl 1 MG/ML SYRINGE IVPUSH ×3 (09:06→14:14)
[2021-09-10] MEDS: ondansetron HCL 4 MG/2 ML VIAL IVPUSH (09:55)
--- NOTE | 2021-09-10 10:33 | ECG_ITS ---
Test Reason : cp Blood Pressure : / mmHG Vent. Rate : 111 BPM Atrial Rate : 111 BPM P-R Int : 134 ms QRS Dur : 190 ms QT Int : 404 ms P-R-T Axes : 038 -37 100 degrees QTc Int : 549 ms Sinus tachycardia Left axis deviation Left bundle branch block Abnormal ECG When compared with ECG of 10-SEP-2021 03:28, No significant change was found Referred By: Mariana Davis Electronically Signed By:Serafin Overton
--- NOTE | 2021-09-10 11:27 | PC.NURSE ---
Pt seen by Dr Bueno, dispo pending
--- NOTE | 2021-09-10 16:00 | PM.UROCN ---
History of Present Illness Consult details Consult date: 09/10/21 Narrative: Jhon is well known to me Had undergone procedure on Monday for kidney stone removal Presents with persistent pain on right flank towards right lower abdomen This is different than prior presentation Imaging shows stone fragment that is now in distal right ureter And this is a different location as the prior stone had been up in his kidney. Plan for rigid ureteroscopy to remove stone from distal opening Review of Systems Constitutional: Constitutional: Reports as per HPI and Reports no additional constitutional complaints Cardiovascular: Cardiovascular: Reports as per HPI and Reports no additional cardiovascular complaints Respiratory: Respiratory: Reports as per HPI and Reports no additional respiratory complaints Gastrointestinal: Gastrointestinal: Reports as per HPI and Reports no additional gastrointestinal complaints Genitourinary: Genitourinary: Reports as per HPI Musculoskeletal: Musculoskeletal: Reports no additional musculoskeletal complaints and Reports as per HPI Neurologic: Reports system reviewed and no additional complaints, except as documented and Reports as per HPI PMF Past Medical History Medical History Asthma Essential hypertension H/O urinary retention Kidney stones LBBB (left bundle branch block) Myocardial infarct, old Family History Family History Father No problems noted. Mother No problems noted. Surgical History Surgical History No pertinent past surgical history Social History Social History Alcohol intake: current Alcohol intake frequency: holidays/special occasions only Alcohol type: beer Patient Tobacco Use Status: Never used Tobacco Smoked in Last 30 Days: No Use of substances other than those prescribed or required for medical reasons: No Advance Directives: Yes Advance Directives on File: Yes Advance Directives Date on File: 12/21/20 service: No Current occupational status: employed Meds Allergies Allergy/AdvReac Type Severity Reaction Status Date / Time No Known Allergies Allergy Verified 09/10/21 03:32 [No Known Allergies*] Home Medications Medication Instructions Recorded Confirmed Last Taken Type albuterol sulfate 90 mcg/actuation 2 puff INHALATION Q4H PRN 08/14/20 09/08/21 Unknown History aerosol inhaler (ProAir HFA) losartan 50 mg tablet 50 mg PO BEDTIME 08/14/20 09/08/21 09/06/21 12:00 History montelukast 10 mg tablet 10 mg PO BEDTIME 08/14/20 09/08/21 09/06/21 12:00 History zolpidem 10 mg tablet 10 mg PO BEDTIME 08/14/20 09/08/21 09/05/21 History aspirin 81 mg chewable tablet 81 mg PO BEDTIME 08/23/21 09/08/21 09/06/21 12:00 History finasteride 5 mg tablet 5 mg PO BEDTIME 08/23/21 09/08/21 09/06/21 12:00 History Physical Exam Vital Signs: Vital Signs: Last Vital Signs Temp 99.3 F 09/10/21 14:11 Pulse 129 H 09/10/21 14:11 Resp 24 H 09/10/21 14:14 BP 111/63 09/10/21 14:11 Pulse Ox 95 09/10/21 14:11 BMI result Body Mass Index 34.9 Const: General: cooperative, healthy appearing, comfortable and no acute distress Orientation/consciousness: patient oriented x3 HEENT: Face and sinus: Yes normal facial exam Mouth: moist mucous membranes Neck: Neck: Yes normal visual inspection, Yes full ROM and Yes trachea midline Chest: Chest palpation & inspection: normal inspection of the chest Resp: Effort & Inspection: normal respiratory effort, able to speak in complete sentences and no respiratory distress GI: Inspection: Yes normal to inspection Back/Spine/Pelvis: Cervical Spine: normal cervical lordosis Thoracic/Lumbar Spine: thoracic and lumbar spine normal to inspection Skin: General skin exam: no rashes or lesions noted Neuro: General: patient oriented x3, tone normal and moves all extremities Extrem: General: Yes normal to inspection and Yes capillary refill normal Results Labs Result diagrams: 09/10/21 03:55 09/10/21 03:55 Labs: Abnormal lab results 09/10/21 09/10/21 09/10/21 Range/Units 03:55 03:55 06:20 RBC 4.10 L (4.60-5.80) X10*6/uL Hgb 12.9 L (14.0-18.0) g/dl Hct 38.1 L (42.0-52.0) % MPV 8.9 L (9.4-12.4) fL Lymph % (Auto) 13.8 L (20-40) % [place] % (Auto) 12.0 H (2-11) % Lymph # (Auto) 0.8 L (1.2-4.9) X10*3/uL Carbon Dioxide 21 L (22-29) mmol/L BUN 17 H (9-16) mg/dL Random Glucose 155 H (60-115) mg/dL Urine Blood 3+ H (NEG) Urine RBC 10-14 H (0) /HPF Short CBC 09/10/21 Range/Units 03:55 WBC 6.1 (4.8-10.8) X10*3/uL Hgb 12.9 L (14.0-18.0) g/dl Hct 38.1 L (42.0-52.0) % Plt Count 201 (160-400) X10*3/uL BMP 09/10/21 03:55 Sodium 137 Potassium 3.9 Chloride 104 Carbon Dioxide 21 L BUN 17 H Creatinine 1.06 Calcium 9.6 Liver Function 09/10/21 Range/Units 03:55 Total Bilirubin 0.8 (0.0-1.0) mg/dL AST 25 (5-37) U/L ALT 27 (0-40) U/L Alkaline Phosphatase 84 (39-117) U/L Albumin 4.1 (3.5-5.0) g/dL Urine 09/10/21 Range/Units 06:20 Urine Color YELLOW Urine Appearance HAZY Urine pH 5.5 (5.0-8.0) Ur Specific [place] 1.020 (1.005-1.025) Urine Protein NEG (NEG-TRACE) MG/DL Urine Glucose (UA) NEG (NEG) MG/DL All other labs normal. Assessment and Plan (1) Ureterolithiasis: Status: Acute Plan Distal right ureteric stone with hydronephrosis and pain Ureteroscopy We discussed the nature of the decision and reasonable alternatives for performing the above surgery. Interventions include chemical dissolution, ESWL, ureteroscopy with laser lithotripsy and stent placement, PCNL. Options such as medical therapy were discussed. The relative uncertainties and benefits related to each alternate procedure were adequately discussed. General surgical risks including, but not limited to, pain, bleeding, infection, myocardial infarction, pulmonary embolus, deep vein thrombosis and cerebrovascular accident which may result in further hospitalization were discussed. Full disclosure of the procedure as well as all major risks, benefits and complications were discussed including but not limited to damage to the urethra, bladder and kidney infection, damage to the ureter, stent migration or malposition, scarring to the renal pelvis, remnant stone fragments, subsequent stone passage with need for secondary procedures. The overall secondary procedure rate is approximately 10-15%. The success rate of the procedure was discussed. Success of the procedure in the short-term does not necessarily guarantee that long-term success will be maintained. Suitable follow up will need to be maintained. The patient showed understanding of discussion and wishes to proceed with - cystoscopy, retrograde, ureteroscopy, possible lithotripsy/stone basketing and stent on the right side - rigid scope Procedures Date of Service Date of Service: 09/10/21
--- NOTE | 2021-09-10 16:25 | P.CONAN_ITS ---
[facility] Active Problems Active Problems: All Active Problems (Updated 09/10/21 @ 07:01 by Leila Carlson MD) Renal colic (Acute) Ureterolithiasis (Acute) Essential hypertension (Acute) LBBB (left bundle branch block) (Acute) Atherosclerotic cardiovascular disease (Acute) Nephrolithiasis (Acute) Neurogenic urinary bladder disorder (Acute) Nephrolithiasis (Acute) BPH w urinary obs/LUTS (Acute) Past Medical History Medical History Asthma Essential hypertension H/O urinary retention Kidney stones LBBB (left bundle branch block) Myocardial infarct, old Family History Family History Father No problems noted. Mother No problems noted. Family history of problems with anesthesia: No Surgical History Surgical History No pertinent past surgical history History of Problems with Anesthesia: No Social History Social History Alcohol intake: current Alcohol intake frequency: holidays/special occasions only Alcohol type: beer Patient Tobacco Use Status: Never used Tobacco Smoked in Last 30 Days: No Use of substances other than those prescribed or required for medical reasons: No Are you DNR?: No Advance Directives: Yes Advance Directives on File: Yes Advance Directives Date on File: 12/21/20 Recently lost weight without trying: No service: No Current occupational status: employed Meds Allergies Allergy/AdvReac Type Severity Reaction Status Date / Time No Known Allergies Allergy Verified 09/10/21 03:32 [No Known Allergies*] Active Medications: Current Medications Levofloxacin (Levaquin) 500 mg in 100 mls @ 100 mls/hr IV PREOP ONE Stop: 09/10/21 17:01 Home Medications Medication Instructions Recorded Confirmed Last Taken Type albuterol sulfate 90 mcg/actuation 2 puff INHALATION Q4H PRN 08/14/20 09/08/21 Unknown History aerosol inhaler (ProAir HFA) losartan 50 mg tablet 50 mg PO BEDTIME 08/14/20 09/08/21 09/06/21 12:00 History montelukast 10 mg tablet 10 mg PO BEDTIME 08/14/20 09/08/21 09/06/21 12:00 History zolpidem 10 mg tablet 10 mg PO BEDTIME 08/14/20 09/08/21 09/05/21 History aspirin 81 mg chewable tablet 81 mg PO BEDTIME 08/23/21 09/08/21 09/06/21 12:00 History finasteride 5 mg tablet 5 mg PO BEDTIME 08/23/21 09/08/21 09/06/21 12:00 History Exam Exam Date and Time: September 10, [id number] Height,Weight and Vital Signs: Height 5 ft 8 in Weight 104.32 kg Last Vital Signs Temp 98.3 F 09/10/21 16:05 Pulse 108 H 09/10/21 16:05 Resp 18 09/10/21 16:05 BP 150/82 H 09/10/21 16:05 Pulse Ox 96 09/10/21 16:05 Pertinent Lab Results Pertinent Lab Results: Laboratory Tests 09/10/21 09/10/21 09/10/21 03:55 03:55 03:55 WBC 6.1 RBC 4.10 L Hgb 12.9 L Hct 38.1 L MCV 92.9 MCH 31.5 MCHC 33.9 RDW 12.0 Plt Count 201 MPV 8.9 L Immature Gran % (Auto) 0.3 Neut % (Auto) 72.2 Lymph % (Auto) 13.8 L [place] % (Auto) 12.0 H Eos % (Auto) 1.2 Baso % (Auto) 0.5 Lymph # (Auto) 0.8 L [place] # (Auto) 0.7 Eos # (Auto) 0.1 Baso # (Auto) 0.0 Abs Immat Gran (auto) 0.02 Absolute Neuts (auto) 4.4 Absolute Nucleated RBC 0.000 Nucleated RBC % (auto) 0.0 PT 11.7 INR 1.0 Sodium 137 Potassium 3.9 Chloride 104 Carbon Dioxide 21 L Anion Gap 16 BUN 17 H Creatinine 1.06 Estim Creat Clear Calc 86.7 Estimated GFR > 60 Random Glucose 155 H Calcium 9.6 Total Bilirubin 0.8 AST 25 ALT 27 Alkaline Phosphatase 84 Troponin I High Sens Total Protein 6.8 Albumin 4.1 Urine Color Urine Appearance Urine pH Ur Specific [place] Urine Protein Urine Glucose (UA) Urine Ketones Urine Blood Urine Nitrite Ur Leukocyte Esterase Urine RBC Urine WBC Ur Squamous Epith Cells Urine Bacteria Urine Mucus 09/10/21 09/10/21 03:55 06:20 WBC RBC Hgb Hct MCV MCH MCHC RDW Plt Count MPV Immature Gran % (Auto) Neut % (Auto) Lymph % (Auto) [place] % (Auto) Eos % (Auto) Baso % (Auto) Lymph # (Auto) [place] # (Auto) Eos # (Auto) Baso # (Auto) Abs Immat Gran (auto) Absolute Neuts (auto) Absolute Nucleated RBC Nucleated RBC % (auto) PT INR Sodium Potassium Chloride Carbon Dioxide Anion Gap BUN Creatinine Estim Creat Clear Calc Estimated GFR Random Glucose Calcium Total Bilirubin AST ALT Alkaline Phosphatase Troponin I High Sens 5.2 Total Protein Albumin Urine Color YELLOW Urine Appearance HAZY Urine pH 5.5 Ur Specific [place] 1.020 Urine Protein NEG Urine Glucose (UA) NEG Urine Ketones NEG Urine Blood 3+ H Urine Nitrite NEG Ur Leukocyte Esterase NEG Urine RBC 10-14 H Urine WBC 0 Ur Squamous Epith Cells TRACE Urine Bacteria NONE Urine Mucus TRACE Airway Mallampati Class: III TM Dist: >3cm Neck ROM: Full Assessment and Plan Assessment Anesthesia Assessment: Anesthesia Plan Discussed and Chart Reviewed Final Anesthetic Review Family History of Problems with Anesthesia: No History of Problems with Anesthesia: No NPO: Yes ASA Class: III and Emergency Final Preanesthetic Review: No Changes in Pt Med Stat, Meds/Allgs Chart R slava, Consent Obtained/Reviewed and Anes Risks/Benef Reviewed Patient Risk: Intermediate Procedure Risk: Intermediate Anesthetic Plan Anesthetic Plan: GA Disposition: Standard PACU
--- NOTE | 2021-09-10 16:40 | P.HPSUR_ITS ---
Pre-Procedural Eval Section A Date of Service: 09/10/21 The patient is an INPATIENT: Yes Changes since office visit: No Cold of Flu in the past 2 weeks, No New Medical Problems, No Changes in Medication and No Patient answered all questions The History & Physical has been completed within 30 days and I have reviewed it.: Yes Section B Chief Complaint: kidney pain, radiates across body Details of Present Illness: Right [place] in, urinary fragment stone fallen into distal right ureter Allergies: Allergies Allergy/AdvReac Type Severity Reaction Status Date / Time No Known Allergies Allergy Verified 09/10/21 03:32 [No Known Allergies*] Review of Systems Sugical H&P ROS: Negative: Constitution, Cardiovascular, Respiratory, Neurological, Psychiatric, Hem-Onc, Allergic/Immunologic, Gastrointestinal, Genitourinary, Musculoskeletal, Integumentary, Endocrine and Eyes/E ars/Nose/Throat Exam Surgical H&P Exam: Normal: HEENT, Normal: Heart, Normal: Lungs, Normal: Extremities, Normal: Abdomen, Normal: Skin and Normal: Neurological Plan Diagnosis/Plan: Unchanged ( cystoscopy, right retrograde, right rigid ureteroscopy with stone retrieval) I have reviewed the history and physical and performed a pertinent physical examination on my patient. No changes have occurred unless specified.
--- NOTE | 2021-09-10 17:04 | P.OP_ITS ---
Operative Note Operative Note Date of Service: 09/10/21 Narrative: PreOperative Diagnosis: distal right ureteric stone Post Operative Diagnosis: stone had passed into bladder Procedure: - cystoscopy, - right ureteroscopy Surgeon: Dr Sam Barber Anesthesia: General Indications for procedure: stone stress with stone in distal right ureter had presented with persistent pain. Imaging confirmed distal stone with hydronephrosis. Procedure: After informed consent was verified patient was brought to the operating placed in supine position. Anesthesia was administered per protocol. Patient was placed in modified dorsal lithotomy position and prepped and draped in a sterile fashion. Safety pause time-out and side of surgery confirmed. Antibiotics confirmed. A 22 [place] cystoscope was inserted per urethra. Bladder was normal in its entirety. Both ureteric orifices were in normal position. Right ureteric orifice was inflamed. Stones present within bladder. These were removed. The rigid cystoscope was removed. A Semi rigid ureteral scope was placed into the ureter no stone was seen on examination the distal 3rd of the ureter. Decision was made not to place stent. Mane catheter placed with catheter cap per request of patient. The patient tolerated the procedure well and was extubated in the operating room, and transferred in stable condition to the recovery area. Pathology: Stones Drains:
[2021-09-10] MEDS: Acetaminophen 325 MG TABLET 650 MG PO (17:43)
[2021-09-10] MEDS: Phenazopyridine HCL 100 MG TABLET PO (17:43)
[2021-09-16 23:36] LABS: Stone Source RIGHT URETERAL STONE
== END 2021-09-10 18:35 | disposition home or self-care (01) ==
LOC: HO.ED 14:31 → HO.SSS 16:10
PROVIDERS: Student in an Organized Health Care Education/Training Program; Emergency Provider Emergency Medicine; PCP Internal Medicine; Visit Provider Urology
PROC: (CPT 52352; principal; 2021-09-10 16:30)
DX: N21.0 Calculus in bladder (principal); Z87.442 Personal history of urinary calculi; N31.9 Neuromuscular dysfunction of bladder, unspecified; I10 Essential (primary) hypertension; I44.7 Left bundle-branch block, unspecified; J45.909 Unspecified asthma, uncomplicated; Z79.82 Long term (current) use of aspirin; Z79.899 Other long term (current) drug therapy
CPT/HCPCS: 52352; 36415; 74177; 80053; 81001; 82365; 84484; 85025; 85610; 88300; 93005; 96361; 96374; 96375; 96376; 99285; C1758; C1769; J1100; J1170; J1885; J1956; J2250; J2370; J2405; J3010; Q9967

== ENCOUNTER → 2021-09-15 10:54 | Outpatient (BNVA) | payer BC, SELFPAY | PROVIDERS: PCP Internal Medicine; Visit Provider Urology | DX: N20.0 Calculus of kidney (principal) | CPT/HCPCS: 51700; 51798 ==

== ENCOUNTER → 2021-09-17 13:52 | Outpatient (BNVA) | payer BC, SELFPAY | PROVIDERS: PCP Internal Medicine; Visit Provider Urology | DX: N13.8 Other obstructive and reflux uropathy (principal) | CPT/HCPCS: 51798 ==

== ENCOUNTER → 2021-10-21 13:48 | Outpatient (REF) | payer BC, SELFPAY ==
--- NOTE | 2021-10-21 13:50 | CA_ITS ---
Transthoracic Echocardiogram Patient (Last, First, Middle): Victorino Rose A Gender: Male Date of : 1960 Age: 61 Procedure Date: 10/21/2021 Procedure Type: Transthoracic Echocardiogram Location: OP Height: 172.72 cm Weight: 103.87 kg BSA: 2.16 m2 Heart Rate: 73 bpm BP: 120 / 80 mmHg Auto Body Estimator: SB Referring MD: Baljit Oconnell MD Editor Managing [employer]aper: Ray Apodaca MD Symptoms: I25.10 - Atherosclerotic heart disease of [place] coronary... Study Quality: Technically Difficult ECG Rhythm: Sinus Conclusions: - 1. Low normal LV systolic function with impaired relaxation filling pattern 2. Limited visualization of cardiac valves with normal cardiac valvular Doppler 3. Technically limited study despite use of contrast Findings Procedure Information Contrast agent, definity, is being given per protocol without apparent complications. Left Ventricle Normal left ventricular cavity size. There is normal left ventricular wall thickness. The left ventricular systolic function is low normal. The visually estimated ejection fraction is between 50-55%. Regional wall motion abnormalities can not be excluded due to suboptimal endocardial definition. Spectral Doppler is indicative of an impaired relaxation filling pattern. Right Ventricle Normal right ventricular cavity size. Atria The left atrium is likely dilated. Interatrial shunt cannot be excluded. The right atrium was not well visualized. Aortic Valve There is mild calcification of the aortic valve. There is no aortic valve stenosis. There is no aortic valve regurgitation. Mitral Valve The mitral valve was not well visualized. There is trace mitral valve regurgitation. There is no mitral valve stenosis. Pulmonic Valve The pulmonic valve was not well visualized. Tricuspid Valve The tricuspid valve was not well visualized. Tricuspid regurgitation envelope is inadequate for calculation of right ventricular systolic pressure. Great Vessels All visible segments of the aorta are normal in size. The pulmonary artery was not well visualized. Moderate plaque is seen in the arch. Venous The inferior vena cava is normal in size. Pericardium/Pleural The pericardium was not well visualized. Prior Study Comparison no previous study in the last 5 years for comparison Measurements 2D Linear Measurements IVSd: 1.08 0.6-0.9/0.6-1.0 cm LVIDd: 5.49 3.9-5.3/4.2-5.9 cm LVIDd Index: 2.54 2.4-3.2/2.2-3.1 cm/m2 LVIDs: 4.16 2.0-3.6 cm LVPWd: 0.81 0.7-1.1 cm LA Diam: 4.70 2.7-3.8/3.0-4.0 cm LAIDs Index: 2.18 1.5-2.3 cm/m2 LV Mass: 246.62 67-162/88-224 g LV Mass Index: 114.17 43-95/49-115 g/m2 LVOT Diam: 2.10 3.0+(-)1.3 cm 2D Systolic Function EF 4C: 49.00 >55% EF 2C: 59.80 >55% EF BiP: 53.60 >55% Mitral Valve MV Pk E: 0.83 MV PK A: 0.81 MV Decel Time: 191.00 E/A: 1.00 E'Lateral: 10.20 E'Medial: 5.87 E/E' Med: 14.20 E/E' Lat: 8.10 PHT: 56.00 MVA PHT: 3.[address] [place]: 4.35 Aortic Valve AoV Pk Jemal: 2.19 AoV Mn Jemal: 1.60 AoV VTI: 0.42 AoV Pk Grad: 19.00 Aov Mn Grad: 11.00 JESSICA Cont.VTI: 1.88 LVOT LVOT Pk Jemal: 1.08 LVOT Mn Jemal: 0.84 LVOT VTI: 0.23 LVOT Pk Grad: 5.00 LVOT Mn Grad: 3.00 LVOT Diam: 2.10 LVOT Area: 3.46 Diastolic Function MV Pk E: 0.83 MV Pk A: 0.81 E/A: 1.00 E'Medial: 5.87 E/E' Med: 14.20 E' Laterial: 10.20 E/E' Lat: 8.10 Right Ventricle TAPSE (mm): 17.50 TVS' Jemal: 9.48 Tricuspid Valve TR Pk Jemal: 2.19 TR Pk Grad: 19.00 Great Vessels Aorta Sinus of Valsalva: 2.85 2.0-3.5 cm Ao Asc: 3.40 2.1-3.4 cm Pulmonary Veins Pulm Vein S/D 1.00 Pulmonary Valve PV Pk Jemal: 1.75 Peak PV Grad: 12.00 Updated in Other Vendor System with Status of Final Ray Apodaca MD electronically signed on 10/22/2021 8:41:52 AM with status of Final
== END ==
LOC: HO.CARD 13:48
PROVIDERS: Visit Provider Internal Medicine
DX: I42.9 Cardiomyopathy, unspecified (principal); I25.10 Atherosclerotic heart disease of native coronary artery without angina pectoris
CPT/HCPCS: 93306; Q9957

== ENCOUNTER → 2021-10-26 08:15 | Outpatient (BNVA) | payer SELFPAY | PROVIDERS: PCP Internal Medicine; Visit Provider Internal Medicine | DX: Z02.79 Encounter for issue of other medical certificate (principal) ==

== ENCOUNTER → 2022-10-14 08:50 | Outpatient (BNVA) | payer SELFPAY | PROVIDERS: PCP Internal Medicine; Visit Provider Internal Medicine | DX: Z02.79 Encounter for issue of other medical certificate (principal) ==

== ENCOUNTER → 2023-09-08 08:41 | Outpatient (BNVA) | payer SELFPAY | PROVIDERS: PCP Internal Medicine; Visit Provider Internal Medicine | DX: Z02.79 Encounter for issue of other medical certificate (principal) ==

== ENCOUNTER 2023-09-23 11:44 | Emergency (ER) | payer BC, SELFPAY ==
--- NOTE | ~2023-09-23 | CT_ITS ---
EXAMINATION: CT ABDOMEN AND PELVIS WITHOUT CONTRAST CLINICAL INFORMATION: Left flank pain. COMPARISON: CT abdomen/pelvis dated 09/10/2021. TECHNIQUE: Multidetector volumetric imaging was performed from the superior aspect of the liver through the pubic symphysis. Sagittal and coronal reformatted images were obtained on the technologist's workstation. This CT examination was performed using dose optimization techniques as appropriate, variously including the following: *Automated exposure control *Adjustment of mA and/or kV according to patient size (this includes techniques or standardized protocols for targeted exams where dose is matched to indication/reason for exam; i.e. extremities or head) *Use of iterative reconstruction technique DLP: 839 mGy-cm FINDINGS: LUNG BASES: The visualized lung bases are unremarkable. LIVER, GALLBLADDER, AND BILIARY TREE: The liver is normal in size and shape. Parenchymal hypoattenuation, consistent with steatosis. No focal hepatic lesion or biliary ductal dilatation is present. Minimal layering hyperdensity within the gallbladder which is unchanged and likely represents sludge/stones. No wall thickening or inflammatory change. PANCREAS: Atrophic and fatty replaced, similar when compared to the prior examination. No inflammatory change or pancreatic ductal dilatation. SPLEEN: Unremarkable. ADRENAL GLANDS: Unremarkable. KIDNEYS AND URETERS: The kidneys are normal in size, shape, and attenuation. There is a proximal left ureteral stone measuring up to 0.4 cm at the level of the L3-L4 intervertebral disc. This is located approximately 17.7 cm from the posterior axillary line. There is moderate proximal hydroureteronephrosis. Additional more distal left ureteral stone measuring up to 0.2 cm at the level of the pelvic outlet. Left lower pole renal stones measuring up to 1.0 and 0.4 cm located approximately 13 cm from the posterior axillary line. Stones are new when compared to the prior examination. No right-sided renal or ureteral stone. No right-sided hydronephrosis or hydroureter. Nonspecific bilateral perinephric stranding. BLADDER: Partially distended without wall thickening or inflammatory change. There are dependent hyperdensities within the urinary bladder which could represent small stones. GASTROINTESTINAL TRACT: No small- or large-bowel obstruction. No bowel wall thickening or inflammatory change. Unremarkable appendix. Scattered cecal and rectosigmoid diverticula without evidence of acute diverticulitis. PERITONEAL CAVITY: No intra-abdominal free air or free fluid. ABDOMINAL WALL: Tiny, fat-containing periumbilical hernia. LYMPH NODES: No significant lymphadenopathy. VASCULAR: Atherosclerotic calcifications. No abdominal aortic dilatation. PELVIC VISCERA: Mild prostatomegaly. OSSEOUS STRUCTURES: Unremarkable. CT/CT abdomen pelvis wo IV con IMPRESSION: 1. Proximal left ureteral stone measuring up to 0.4 cm at the level of the L3-L4 intervertebral disc. Additional more distal left ureteral stone measuring up to 0.2 cm at the level of the pelvic outlet. Moderate proximal hydroureteronephrosis. Left lower pole renal stones measuring up to 1.0 and 0.4 cm, new when compared to the prior examination. No right-sided renal or ureteral stone. No right-sided hydronephrosis or hydroureter. 2. Dependent hyperdensities within the urinary bladder which could represent small stones. No bladder wall thickening or infiltrative change. 3. Additional chronic findings are unchanged. Fleischner guidelines were followed.
[2023-09-23 11:46] VITALS: BP 172/73; PULSE 95; RESP 18; TEMP 36.6; O2SAT 97; BMI 35.0
--- NOTE | 2023-09-23 11:55 | ED_ITS ---
HPI - General Adult General Chief complaint: Abdominal Pain Stated complaint: kidney stone Time Seen by Provider: 09/23/23 12:16 Source: patient Mode of arrival: ambulatory Limitations: no limitations History of Present Illness HPI narrative: 63-year-old male with history of kidney stones requiring multiple stents in the past, BPH, neurogenic bladder, LBBB who presents the ER for evaluation of acute onset of constant, severe left-sided flank pain that started this morning. Patient states he was lying on the couch when the pain suddenly came in the left lower back and flank. It has been constant since then. It is sharp and nonradiating. He is having nausea but no vomiting. Reports difficulty urinating since the pain started. He reports history of recurrent kidney stones in the past requiring intervention. This pain is similar to his previous kidney stones. MD complaint: Left flank pain Onset (ago): hour(s) Location: back Radiation: non-radiation Severity: severe Severity scale (1-10): 8 Quality: stabbing and sharp Pain Consistency: constant Relieving factors: none Exacerbating factors: none Associated symptoms: nausea/vomiting Treatments prior to arrival: none Related Data Home Medications ?Medication ?Instructions ?Recorded ?Confirmed albuterol sulfate 90 mcg/actuation 2 puff inhalation Q4H PRN 08/14/20 09/08/21 aerosol inhaler (ProAir HFA) Shortness Of Breath losartan 50 mg tablet 50 mg PO BEDTIME 08/14/20 09/08/21 montelukast 10 mg tablet 10 mg PO BEDTIME 08/14/20 09/08/21 zolpidem 10 mg tablet 10 mg PO BEDTIME 08/14/20 09/08/21 aspirin 81 mg chewable tablet 81 mg PO BEDTIME 08/23/21 09/08/21 finasteride 5 mg tablet 5 mg PO BEDTIME 08/23/21 09/08/21 Previous Rx's ?Medication ?Instructions ?Recorded tamsulosin 0.4 mg capsule 0.4 mg PO BEDTIME 90 days #90 caps 05/18/21 hydrocodone 5 mg-acetaminophen 325 1 tab PO Q4H PRN pain 7 days #14 08/24/21 mg tablet tabs rosuvastatin 20 mg tablet (Crestor) 20 mg PO DAILY #90 tabs 09/08/21 ketorolac 10 mg tablet 10 mg PO Q8H PRN pain 3 days #9 09/23/23 tabs morphine 15 mg immediate release 15 mg PO TID PRN severe pain 09/23/23 tablet (scale score 7-10) #7 tabs ondansetron 4 mg disintegrating 4 mg PO Q8H PRN nausea and 09/23/23 tablet vomiting #5 tabs prednisone 20 mg tablet 40 mg (2 x 20 mg) PO DAILY #6 tabs 09/23/23 tamsulosin 0.4 mg capsule (Flomax) 0.4 mg PO DAILY #14 caps 09/23/23 Allergies Allergy/AdvReac Type Severity Reaction Status Date / Time No Known Allergies Allergy Verified 09/23/23 11:47 [No Known Allergies*] Review of Systems 2 Review of Systems: Yes all other systems are reviewed and are negative [facility] Past Medical History Medical History Asthma Essential hypertension H/O urinary retention Kidney stones LBBB (left bundle branch block) Myocardial infarct, old Surgical History No pertinent past surgical history Family History Family History Father No problems noted. Mother No problems noted. Social History Social History Alcohol intake: current Alcohol intake frequency: holidays/special occasions only Alcohol type: beer Patient Tobacco Use Status: Never used Tobacco Smoked in Last 30 Days: No Use of substances other than those prescribed or required for medical reasons: No Advance Directives: Yes Advance Directives on File: Yes Advance Directives Date on File: 12/21/20 Do you have a plan to hurt others: No Plan service: No Current occupational status: employed Physical Exam ED Vital Signs: Vital Signs - 24 hr 09/23/23 11:46 09/23/23 13:09 Temperature 97.9 F 98.6 F Pulse Rate 95 93 Respiratory Rate 18 18 Blood Pressure 172/73 H 150/84 H Pulse Oximetry 97 95 Oxygen Delivery Method Room Air Room Air BMI result Body Mass Index 35.0 Appearance: Alert. Oriented X3. Restless than appears uncomfortable Head: normocephalic, atraumatic. Eyes: Pupils equal, round and reactive to light. ENT: Pharynx normal. No tonsillar swelling or exudate. Neck: Normal inspection. Neck supple. CVS: Normal heart rate and rhythm. Pulses normal. Respiratory: No respiratory distress. Breath sounds normal. Abdomen: Obese, Soft and nontender. +BS x4. No CVA tenderness. Skin: Skin warm and dry. Normal skin color. Normal skin turgor. No rashes. Extremities: No lower extremity edema. No joint swelling. Neuro/psych: Oriented X 3. No motor deficit. No sensory deficit. CN II-XII intact. Normal speech and cognition. Course Course Course Narrative: RME performed by Carol Gee PA-C. Patient is a 63 year old assigned male at presenting to the emergency department with left flank pain. Patient states that he has a history of acidic kidney stones. Detailed physical exam and review of systems are deferred to the brim rounder. Labs ordered. Patient placed back in the waiting room pending room availability and results. Medications Administered Discontinued Medications Generic Name Dose Route Start Last Admin Trade Name Armaanq PRN Reason Stop Dose Admin Acetaminophen 975 mg 09/23/23 15:39 09/23/23 16:16 Acetaminophen 325 Mg Tablet PO 09/23/23 15:40 975 mg ONCE ONE Administration Sodium Chloride 1,000 mls @ 999 mls/hr 09/23/23 12:30 09/23/23 13:43 Ns IVCONT 09/23/23 13:30 Infused .Q1H1M ANGELA Infusion Ketorolac Tromethamine 15 mg 09/23/23 12:20 09/23/23 12:30 Ketorolac Tromethamine 15 Mg/Ml Vial IVPUSH 09/23/23 12:21 15 mg ONCE ONE Administration Ketorolac Tromethamine 15 mg 09/23/23 13:43 09/23/23 13:48 Ketorolac Tromethamine 15 Mg/Ml Vial IVPUSH 09/23/23 13:44 15 mg ONCE ONE Administration Morphine Sulfate 4 mg 09/23/23 13:43 09/23/23 13:48 Morphine Sulfate 4 Mg/Ml Cartridge IVPUSH 09/23/23 13:44 4 mg ONCE ONE Administration Protocol Ondansetron HCl 4 mg 09/23/23 12:20 09/23/23 12:28 Ondansetron Hcl 4 Mg/2 Ml Vial IVPUSH 09/23/23 12:21 4 mg ONCE ONE Administration Prednisone 40 mg 09/23/23 15:39 09/23/23 16:16 Prednisone 20 Mg Tablet PO 09/23/23 15:40 40 mg ONCE ONE Administration Tamsulosin HCl 0.4 mg 09/23/23 13:43 09/23/23 13:48 Tamsulosin Hcl 0.4 Mg Capsule PO 09/23/23 13:44 0.4 mg ONCE ONE Administration Medical Decision Making Medical Decision Making [facility] Narrative: 63-year-old male with history of kidney stones presents the ER for evaluation of acute onset of severe left flank pain. He appears uncomfortable on arrival. IV established and he was given IV Toradol and Zofran with high clinical suspicion for ureteral stone. CT scan of the abdomen was ordered. CT scan is showing a proximal left ureteral stone measuring 4 mm. There is also a smaller stone more distal in the pelvis. There is moderate hydroureter and nephrosis with large stones in the lower pole of the kidney. Patient was given a Toradol x2 as well as morphine with improvement in his pain. He states his pain is manageable and that is kidney feels ?sore.? He feels as though he usually needs stenting and does not tolerate going home well. This was discussed with Urology on-call doctor [place]. She reviewed the imaging and is recommending adequate pain control and discharge home Differential Diagnosis Differential Diagnoses: The differential diagnosis associated with the presentation includes obstructing kidney stone, pyelonephritis, UTI, ureteral spasm Admission/Observation Consideration of admission/observation: Escalation of care including admission/observation considered Consult Healthcare Provider Management of the patient was discussed with: Social Services Coordinator Dr. Guevara - laura pain control and d/c home Lab Data [facility] Lab Attestation statement: I reviewed the patient's lab results. no leukocytosis, normal renal function 09/23/23 12:26 09/23/23 12:26 Labs: Lab Results 09/23/23 09/23/23 Range/Units 12:26 14:54 WBC 6.6 (4.8-10.8) X10*3/uL RBC 5.13 D (4.60-5.80) X10*6/uL Hgb 16.6 D (14.0-18.0) g/dl Hct 47.3 D (42.0-52.0) % MCV 92.2 (80.0-98.0) fL MCH 32.4 (27.0-33.0) pg MCHC 35.1 (31.0-36.0) g/dl RDW 12.0 (11.0-16.0) % Plt Count 191 (160-400) X10*3/uL MPV 8.9 L (9.4-12.4) fL Immature Gran % (Auto) 0.3 (0.0-0.4) % Neut % (Auto) 75.8 H (45-73) % Lymph % (Auto) 15.6 L (20-40) % [place] % (Auto) 7.0 (2-11) % Eos % (Auto) 0.5 (0-4) % Baso % (Auto) 0.8 (0-2) % Lymph # (Auto) 1.0 L (1.2-4.9) X10*3/uL [place] # (Auto) 0.5 (0.1-1.2) X10*3/uL Eos # (Auto) 0.0 (0.0-0.4) X10*3/uL Baso # (Auto) 0.1 (0.0-0.2) X10*3/uL Abs Immat Gran (auto) 0.02 (0.00-0.03) X10*3/uL Absolute Neuts (auto) 5.0 (2.0-8.3) x10*3/uL Absolute Nucleated RBC 0.000 (0.0-0.012) X10*3/uL Nucleated RBC % (auto) 0.0 (0.0-0.2) /100WBC Sodium 140 (135-145) mmol/L Potassium 4.4 (3.3-5.1) mmol/L Chloride 107 (96-108) mmol/L Carbon Dioxide 21 L (22-29) mmol/L Anion Gap 16 (12-20) BUN 15 (9-16) mg/dL Creatinine 0.90 (0.5-1.4) mg/dL Estim Creat Clear Calc 99.6 Estimated GFR > 60 Random Glucose 153 H (60-115) mg/dL Calcium 10.0 (8.4-10.2) mg/dL Magnesium 2.1 (1.6-2.6) mg/dL Total Bilirubin 0.9 (0.0-1.0) mg/dL AST 27 (5-37) U/L ALT 37 (0-40) U/L Alkaline Phosphatase 77 (39-117) U/L Total Protein 7.6 (6.5-8.0) g/dL Albumin 4.6 (3.5-5.0) g/dL Urine Color Yellow Urine Appearance Clear Urine pH 5.0 (5.0-9.0) Ur Specific [place] 1.025 (1.005-1.025) Urine Protein Negative (Neg-Trace) mg/dL Urine Glucose (UA) Negative (Negative) mg/dL Urine Ketones Negative (Negative) mg/dL Urine Blood Large (3+) H (Negative) Urine Nitrite Negative (Negative) Ur Leukocyte Esterase Trace H (Negative) Urine RBC >20 H (0-2) /HPF Urine WBC 0-5 (0-5) /HPF Ur Squamous Epith Cells 0-2 (0-2) /HPF Urine Bacteria None Seen (None Seen) Hyaline Casts 3-5 (0-2) /LPF Independent Interpretation I performed an independent interpretation of an: CT Scan Interpretation: large proximal kidney stone w/ hydro on the left, agree w/ radiology read Radiology Impression Discussion of test interpretation with radiology: I have reviewed the radiologist's reading. Radiologist Impression: EXAMINATION: CT ABDOMEN AND PELVIS WITHOUT CONTRAST CLINICAL INFORMATION: Left flank pain. COMPARISON: CT abdomen/pelvis dated 09/10/2021. TECHNIQUE: Multidetector volumetric imaging was performed from the superior aspect of the liver through the pubic symphysis. Sagittal and coronal reformatted images were obtained on the technologist's workstation. This CT examination was performed using dose optimization techniques as appropriate, variously including the following: *Automated exposure control *Adjustment of mA and/or kV according to patient size (this includes techniques or standardized protocols for targeted exams where dose is matched to indication/reason for exam; i.e. extremities or head) *Use of iterative reconstruction technique DLP: 839 mGy-cm FINDINGS: LUNG BASES: The visualized lung bases are unremarkable. LIVER, GALLBLADDER, AND BILIARY TREE: The liver is normal in size and shape. Parenchymal hypoattenuation, consistent with steatosis. No focal hepatic lesion or biliary ductal dilatation is present. Minimal layering hyperdensity within the gallbladder which is unchanged and likely represents sludge/stones. No wall thickening or inflammatory change. PANCREAS: Atrophic and fatty replaced, similar when compared to the prior examination. No inflammatory change or pancreatic ductal dilatation. SPLEEN: Unremarkable. ADRENAL GLANDS: Unremarkable. KIDNEYS AND URETERS: The kidneys are normal in size, shape, and attenuation. There is a proximal left ureteral stone measuring up to 0.4 cm at the level of the L3-L4 intervertebral disc. This is located approximately 17.7 cm from the posterior axillary line. There is moderate proximal hydroureteronephrosis. Additional more distal left ureteral stone measuring up to 0.2 cm at the level of the pelvic outlet. Left lower pole renal stones measuring up to 1.0 and 0.4 cm located approximately 13 cm from the posterior axillary line. Stones are new when compared to the prior examination. No right-sided renal or ureteral stone. No right-sided hydronephrosis or hydroureter. Nonspecific bilateral perinephric stranding. BLADDER: Partially distended without wall thickening or inflammatory change. There are dependent hyperdensities within the urinary bladder which could represent small stones. GASTROINTESTINAL TRACT: No small- or large-bowel obstruction. No bowel wall thickening or inflammatory change. Unremarkable appendix. Scattered cecal and rectosigmoid diverticula without evidence of acute diverticulitis. PERITONEAL CAVITY: No intra-abdominal free air or free fluid. ABDOMINAL WALL: Tiny, fat-containing periumbilical hernia. LYMPH NODES: No significant lymphadenopathy. VASCULAR: Atherosclerotic calcifications. No abdominal aortic dilatation. PELVIC VISCERA: Mild prostatomegaly. OSSEOUS STRUCTURES: Unremarkable. CT/CT abdomen pelvis wo IV con IMPRESSION: 1. Proximal left ureteral stone measuring up to 0.4 cm at the level of the L3-L4 intervertebral disc. Additional more distal left ureteral stone measuring up to 0.2 cm at the level of the pelvic outlet. Moderate proximal hydroureteronephrosis. Left lower pole renal stones measuring up to 1.0 and 0.4 cm, new when compared to the prior examination. No right-sided renal or ureteral stone. No right-sided hydronephrosis or hydroureter. 2. Dependent hyperdensities within the urinary bladder which could represent small stones. No bladder wall thickening or infiltrative change. 3. Additional chronic findings are unchanged. External Record Review External record reviewed: Office record, Outpatient record and Prior outpatient radiology Prescription Management I considered prescription management with: Pain Medication and Antibiotic Chronic Conditions Patient?s care impacted by: Hypertension and Other (recurrent kidney stones) Critical Care Time Critical Care Time Critical Care Time: Yes Total Critical Care Time: 39 Attestation: I have personally provided critical care time exclusive of time spent on separately billable procedures. Time includes review of lab data, radiology results, discussion with consultants, and monitoring for potential decompensation. Intervention performed as documented. Discharge Plan Discharge Clinical Impression: Nephrolithiasis Patient Disposition: Home, Self-Care Instructions: Kidney Stones (ED), Hydronephrosis (ED) Additional Instructions: Take the the prescribed ketorolac every 8 hours for the next 3 days as needed for [id number] pain. Take with food. Take the prescribed morphine as needed for severe pain only. Follow-up with your urologist on Monday. Call for an appointment. If you develop new or worsening symptoms call 911 or come back to the ER for further evaluation. CT/CT abdomen pelvis wo IV con IMPRESSION: 1. Proximal left ureteral stone measuring up to 0.4 cm at the level of the L3-L4 intervertebral disc. Additional more distal left ureteral stone measuring up to 0.2 cm at the level of the pelvic outlet. Moderate proximal hydroureteronephrosis. Left lower pole renal stones measuring up to 1.0 and 0.4 cm, new when compared to the prior examination. No right-sided renal or ureteral stone. No right-sided hydronephrosis or hydroureter. 2. Dependent hyperdensities within the urinary bladder which could represent small stones. No bladder wall thickening or infiltrative change. Prescriptions: New tamsulosin [Flomax] 0.4 mg capsule 0.4 mg PO DAILY Qty: 14 0RF prednisone 20 mg tablet 40 mg PO DAILY Qty: 6 0RF morphine 15 mg tablet 15 mg PO TID PRN (Reason: severe pain (scale score 7-10)) Qty: 7 0RF Rx Instructions: Partial Fill upon patient request. ketorolac 10 mg tablet 10 mg PO Q8H PRN (Reason: pain) 3 Days Qty: 9 0RF ondansetron 4 mg tablet,disintegrating 4 mg PO Q8H PRN (Reason: nausea and vomiting) Qty: 5 0RF No Action tamsulosin 0.4 mg capsule 0.4 mg PO BEDTIME 90 Days Qty: 90 3RF finasteride 5 mg tablet 5 mg PO BEDTIME aspirin 81 mg Tablet,Chewable 81 mg PO BEDTIME hydrocodone-acetaminophen 5-325 mg tablet 1 tab PO Q4H PRN (Reason: pain) 7 Days Qty: 14 0RF zolpidem 10 mg tablet 10 mg PO BEDTIME montelukast 10 mg tablet 10 mg PO BEDTIME losartan 50 mg tablet 50 mg PO BEDTIME albuterol sulfate [ProAir HFA] 90 mcg/actuation HFA aerosol inhaler 2 puff inhalation Q4H PRN (Reason: Shortness Of Breath) rosuvastatin [Crestor] 20 mg tablet 20 mg PO DAILY Qty: 90 3RF Referrals: [facility] [Provider Group] (CT/CT abdomen pelvis wo IV con IMPRESSION: 1. Proximal left ureteral stone measuring up to 0.4 cm at the level of the L3-L4 intervertebral disc. Additional more distal left ureteral stone measuring up to 0.2 cm at the level of the pelvic outlet. Moderate proximal hydroureteronephrosis. Left lower pole renal stones measuring up to 1.0 and 0.4 cm, new when compared to the prior examination. No right-sided renal or ureteral stone. No right-sided hydronephrosis or hydroureter. 2. Dependent hyperdensities within the urinary bladder which could represent small stones. No bladder wall thickening or infiltrative change.) Michael Egan MD [Primary Care Provider] - Print Language: Indonesian
[2023-09-23] MEDS: ondansetron HCL 4 MG/2 ML VIAL IVPUSH (12:28)
[2023-09-23] MEDS: Ketorolac Tromethamine 15 MG/ML VIAL IVPUSH ×2 (12:30→13:48)
[2023-09-23] MEDS: 0.9 % Sodium Chloride 1,000 ML 999 ML IVCONT (12:30)
[2023-09-23 12:35] LABS: MANUAL DIFF FLAG NO
[2023-09-23 12:42] LABS: Basophils Absolute Auto 0.1 X10*3/uL (0.0-0.2); Basophils Percent Auto 0.8 % (0-2); Eosinophils Percent Auto 0.5 % (0-4); Hematocrit 47.3 % (42.0-52.0); Hemoglobin 16.6 g/dl (14.0-18.0); Imm Gran Abs Auto 0.02 X10*3/uL (0.00-0.03); Imm Gran Pct Auto 0.3 % (0.0-0.4); Lymphocytes Percent Auto 15.6 % (20-40); Mean Corpuscular HGB Conc 35.1 g/dl (31.0-36.0); Mean Corpuscular Hemoglobin 32.4 pg (27.0-33.0); Mean Corpuscular Volume 92.2 fL (80.0-98.0); Mean Platelet Volume 8.9 fL (9.4-12.4); Monocytes Absolute Auto 0.5 X10*3/uL (0.1-1.2); Neutrophils Percent Auto 75.8 % (45-73); Platelet Count 191 X10*3/uL (160-400); Red Blood Count 5.13 X10*6/uL (4.60-5.80); White Blood Count 6.6 X10*3/uL (4.8-10.8)
[2023-09-23 12:57] LABS: Alanine Aminotransferase 37 U/L (0-40); Albumin Level 4.6 g/dL (3.5-5.0); Alkaline Phosphatase 77 U/L (39-117); Anion Gap 16 (12-20); Aspartate Amino Transferase 27 U/L (5-37); Bilirubin Total 0.9 mg/dL (0.0-1.0); Blood Urea Nitrogen 15 mg/dL (9-16); Carbon Dioxide 21 mmol/L (22-29); Chloride 107 mmol/L (96-108); Creatinine Clr Calc Pharmacy 99.6; Estimated Glomerular Filt Rate > 60; Glucose Random 153 mg/dL (60-115); Magnesium 2.1 mg/dL (1.6-2.6); Potassium 4.4 mmol/L (3.3-5.1); Sodium 140 mmol/L (135-145); Total Protein 7.6 g/dL (6.5-8.0)
[2023-09-23 13:09] VITALS: BP 150/84; PULSE 93; RESP 18; TEMP 37; O2SAT 95
[2023-09-23] MEDS: Tamsulosin HCL 0.4 MG CAPSULE PO (13:48)
[2023-09-23] MEDS: Morphine Sulfate 4 MG/ML CARTRIDGE IVPUSH (13:48)
[2023-09-23 15:00] LABS: Appearance Urine Clear; Color Urine Yellow; Glucose Urine UA Negative (Negative); Leukocyte Esterase Urine Trace (Negative); Nitrite Urine Negative (Negative); Specific Gravity - Urine 1.025 (1.005-1.025); UMIC TRIGGER UACC YES; Urine Blood Large (3+) (Negative); Urine Ketones Negative (Negative); Urine Protein Negative (Neg-Trace)
[2023-09-23 15:02] LABS: Bacteria Urine None Seen (None Seen); RBC Urine >20 /HPF (0-2); Squamous Epithelial Cell Urine 0-2 /HPF (0-2); WBC Urine 0-5 /HPF (0-5)
[2023-09-23] MEDS: predniSONE 20 MG TABLET 40 MG PO (16:16)
[2023-09-23] MEDS: Acetaminophen 325 MG TABLET 975 MG PO (16:16)
[2023-09-23 16:21] VITALS: BP 160/100; PULSE 87; RESP 16; TEMP 36.8; O2SAT 95
== END 2023-09-23 16:23 | disposition home or self-care (01) ==
PROVIDERS: Physician Assistant Medical; Emergency Provider Student in an Organized Health Care Education/Training Program; PCP Internal Medicine
DX: N13.2 Hydronephrosis with renal and ureteral calculous obstruction (principal); I10 Essential (primary) hypertension; I25.2 Old myocardial infarction; Z87.442 Personal history of urinary calculi
CPT/HCPCS: 36415; 74176; 80053; 81001; 81003; 83735; 85025; 96361; 96374; 96375; 96376; 99284; J1885; J2270; J2405

== ENCOUNTER 2024-08-13 14:23 | Outpatient (AMB) | payer BC, SELFPAY ==
[2024-08-13 14:27] VITALS: BP 140/85; PULSE 80; RESP 16; TEMP 36.8; O2SAT 96; BMI 35.7
--- NOTE | 2024-08-13 14:27 | MHC.PC.OV ---
Vital Signs 08/13/24 14:27 Height 5 ft 8 in Weight 235 lb BMI 35.7 BP 140/85 H Respiration 16 Pulse 80 Pulse Source Pulse Oximeter Temp 98.2 F Pulse Oximetry (%) 96 Oxygen Delivery Method Room Air Intake Visit Reasons: 2 month follow up - see comments Receiving Room Clerk Required: No Accompanied by: Self / Same As Patient Allergies No Known Allergies [No Known Allergies*] Allergy (Verified 08/20/24 06:17) Medication List - Last Reconciled 08/20/24 by Trell Bledsoe MD albuterol sulfate 90 mcg/actuation (ProAir HFA) 2 puffs inhalation Q4H PRN aspirin 81 mg PO BEDTIME clonazepam 1 mg PO DAILY losartan 50 mg PO BEDTIME montelukast 10 mg PO BEDTIME zolpidem 10 mg PO BEDTIME Tobacco use date assessed: 08/13/24 Dental Screening Dental Screen Date: 08/13/24 Did you have a dental visit in the last 12 months?: No Did you have a dental problem in the last 6 months where you did not have access to dental care?: No [facility] Medical History (Updated 08/20/24 @ 06:18 by Trell Bledsoe MD) Generalized anxiety disorder Essential hypertension LBBB (left bundle branch block) Asthma Myocardial infarct, old Kidney stones H/O urinary retention Surgical History No pertinent past surgical history Family History Father No problems noted. Mother No problems noted. 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 1. Little interest or pleasure in doing things: not at all 2. Feeling down, depressed, or hopeless: not at all 3. Trouble falling or staying asleep, or sleeping too much: not at all 4. Feeling tired or having little energy: not at all 5. Poor appetite or overeating: not at all 6. Feeling bad about yourself - or that you are a failure or have let yourself or your family down: not at all 7. Trouble concentrating on things, such as reading the newspaper or watching television: not at all 8. Moving or speaking so slowly that other people could have noticed. Or the opposite - being so fidgety or restless that you have been moving around a lot more than usual: not at all 9. Thoughts that you would be better off or of hurting yourself in some way: not at all Total score: 0 Source: Developed by Drs. Gagan Solano, Yesenia Doyle, Sam Smyth and colleagues, with an educational siddharth from [employer]. Thrive Questionnaire Date Thrive assessed: 08/13/24 I am a: Patient What is your living situation today?: I have a steady place to live Within the past 12 months, did the food you bought not last and you didn't have the money to get more?: Never true Within the past 12 months, did you worry whether your food would run out before you got money to buy more?: Never true Do you have trouble paying for medicines?: No Do you have trouble getting transportation to medical appointments?: No Do you have trouble paying your heating and electricity bill?: No Do you have trouble taking care of your child, family member or friend?: No Do you have trouble with day-to-day activities such as bathing, preparing meals, shopping, managing finances, etc.?: No Are you currently unemployed and looking for a job?: No Are you interested in more education?: No Please select the resources that you would like help with: None THRIVE Score: 0 AUDIT C Alcohol Use Questionnaire (AUDIT-C) 1. How often do you have a drink containing alcohol?: Monthly or less 2. How many drinks containing alcohol do you have on a typical day when you are drinking?: 1 or 2 3. How often do you have six or more drinks on one occasion?: Never Total Score: 1 BRYCE-7 AMB Questionnaire BRYCE-7 Date BRYCE - 7 assessed: 08/13/24 Feeling nervous, anxious, or on edge: 0 = Not at all Not being able to stop or control worryin = Not at all Worrying too much about different things: 0 = Not at all Trouble relaxin = Not at all Being so restless that it is hard to sit still: 0 = Not at all Becoming easily annoyed or irritable: 0 = Not at all Feeling afraid as if something awful might happen: 0 = Not at all Total BRYCE-7 score (0-4 normal; 5-9 mild; 10-14 moderate; 15-21 severe): 0 Source: Developed by Drs. Gagan Solano, Yesenia Doyle, Sam Smyth and colleagues, with an educational siddharth from [employer]. Physical exam (Primary Care) Vital Signs: Last Vital Signs Temp 98.2 F 08/13/24 14:27 Pulse 80 08/13/24 14:27 Resp 16 08/13/24 14:27 BP 148/92 H 08/13/24 14:27 Pulse Ox 96 08/13/24 14:27 Oxygen Delivery Method Room Air 08/13/24 14:27 BMI result Body Mass Index 35.7 Tobacco/Smoking Status: Tobacco use Status Tobacco use date assessed 08/13/24 08/13/24 14:36 Patient Tobacco Use Status Never used Tobacco 08/13/24 14:36 PHQ-9: PHQ-9 Score PHQ-9: Total score 0 08/13/24 14:36 Thrive Assessment: Date of Thrive Assessment Date Thrive assessed 08/13/24 08/13/24 14:36 Coding Level of Care Code New Pt Level 4 (97402) Complex EM visit Add On G2211 Diagnoses Generalized anxiety disorder F41.1 Assessment & Plan Assessment & Plan (1) Generalized anxiety disorder: Code(s): F41.1 - Generalized anxiety disorder Category: Medical Plan: Condition is stable, Continue current medications Plan History of Present Illness The patient is a 64 year old male presenting to [facility] care following the nursing home of his previous physician (Dr Egan). He has a history of nephrolithiasis with recurring kidney stones occurring annually in the past, now managed successfully over the past two years by daily intake of lemon water. He reports a history of hyperlipidemia, described as borderline cholesterol, with recent evaluations conducted by his primary care physician. Symptoms of respiratory involvement during episodes of common cold include bronchial congestion necessitating antibiotics and breathing treatments. 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 - Family status: . - Substance use: Denies smoking and drug use. - Functional status: Travels frequently for work, indicates a high level of activity. - Nutritional intake: Consumes lemon water regularly for kidney stone management. Review of Systems - Respiratory: Reports bronchial involvement during colds. - Ophthalmologic: Denies halos around lights when driving at night. - Substance Use: Denies smoking and illegal drug use. Physical Exam General: Appearance normal, both eyes and all related structures Nutritional Appearance: Well nourished Orientation/consciousness: Patient oriented x3 Limitations: No limitations Head: Normal to inspection Neck: Normal visual inspection Chest: Normal palpation of entire chest wall Respiratory: Normal respiratory effort, but patient reports that colds can lead to chest congestion requiring antibiotics and breathing treatments Neurology: Patient oriented x3 Results - Labs: Report of blood work done in June at the prior physician's office, noted that cholesterol is borderline, blood sugars are fine. - Procedures: Colonoscopy done approximately seven years ago, location [place], specific details of provider not recalled by patient. Plan I will obtain records from the previous doctor to verify and continue managing hyperlipidemia and previous test results. Ale's history of nephrolithiasis is well-controlled with lemon water, and monitoring will continue. As episodes of cold can lead to bronchitis-like symptoms, antibiotics and breathing therapy will be initiated as needed. Follow-up is planned to reassess these ongoing issues. Patient was informed and verbally consented to the use of an ambient scribe for clinic note documentation during this visit. Discussion Notes During our discussion, I informed the patient that I will gather his medical records from his previous physician, emphasizing the importance of continuity in monitoring hyperlipidemia. We agreed on maintaining the current kidney stone preventive strategy using lemon water, which has shown effective results. I also addressed his respiratory needs during cold episodes, emphasizing the use of antibiotics and breathing treatments, and consent was implied for these ongoing strategies. Follow-up is arranged for six months to ensure these conditions remain well-managed. Patient Instructions - Continue drinking lemon water daily to prevent kidney stones. - Be aware of respiratory symptoms during colds; initiate antibiotics and breathing treatment as needed. - Expect follow-up in six months to review care and current medical status. - Contact us if any concerns arise before the next scheduled visit.
== END 2024-08-13 15:00 | disposition home or self-care (01) ==
LOC: HO.HMCSH 14:23
PROVIDERS: PCP Internal Medicine; Visit Provider Internal Medicine
DX: F41.1 Generalized anxiety disorder (principal)

== ENCOUNTER → 2024-08-13 14:23 | Outpatient (BNVA) | payer BC, SELFPAY | PROVIDERS: PCP Internal Medicine; Visit Provider Internal Medicine ==

== ENCOUNTER 2025-02-18 09:06 | Outpatient (AMB) | payer BC, SELFPAY ==
[2025-02-18 09:18] VITALS: BP 150/90; PULSE 80; RESP 16; TEMP 36.9; O2SAT 97; BMI 34.5
--- NOTE | 2025-02-18 09:18 | A.OFFPC_ITS ---
Vital Signs 02/18/25 09:18 Height 5 ft 8 in Weight 227 lb BMI 34.5 BP 150/90 H Respiration 16 Pulse 80 Pulse Source Pulse Oximeter Temp 98.4 F Temp Source Temporal Artery Scan Pulse Oximetry (%) 97 Oxygen Delivery Method Room Air Intake Visit Reasons: 6 month f/u Manager Career Required: No Accompanied by: Self / Same As Patient Allergies No Known Allergies (No Known Allergies*) Allergy (Verified 02/18/25 09:19) Tobacco use date assessed: 08/13/24 Dental Screening Dental Screen Date: 08/13/24 [facility] Medical History Generalized anxiety disorder Essential hypertension LBBB (left bundle branch block) Asthma Myocardial infarct, old Kidney stones H/O urinary retention Surgical History No pertinent past surgical history Family History Father No problems noted. Mother No problems noted. 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 1. Little interest or pleasure in doing things: not at all 2. Feeling down, depressed, or hopeless: not at all 3. Trouble falling or staying asleep, or sleeping too much: not at all 4. Feeling tired or having little energy: not at all 5. Poor appetite or overeating: not at all 6. Feeling bad about yourself - or that you are a failure or have let yourself or your family down: not at all 7. Trouble concentrating on things, such as reading the newspaper or watching television: not at all 8. Moving or speaking so slowly that other people could have noticed. Or the opposite - being so fidgety or restless that you have been moving around a lot more than usual: not at all 9. Thoughts that you would be better off or of hurting yourself in some way: not at all Total score: 0 Source: Developed by Drs. Gagan Solano, Yesenia Doyle, Sam Smyth and colleagues, with an educational siddharth from [employer]. Thrive Questionnaire Date Thrive assessed: 08/13/24 I am a: Patient What is your living situation today?: I have a steady place to live Within the past 12 months, did the food you bought not last and you didn't have the money to get more?: Never true Within the past 12 months, did you worry whether your food would run out before you got money to buy more?: Never true Do you have trouble paying for medicines?: No Do you have trouble getting transportation to medical appointments?: No Do you have trouble paying your heating and electricity bill?: No Do you have trouble taking care of your child, family member or friend?: No Do you have trouble with day-to-day activities such as bathing, preparing meals, shopping, managing finances, etc.?: No Are you currently unemployed and looking for a job?: No Are you interested in more education?: No Please select the resources that you would like help with: None THRIVE Score: 0 AUDIT C Alcohol Use Questionnaire (AUDIT-C) 1. How often do you have a drink containing alcohol?: Monthly or less 2. How many drinks containing alcohol do you have on a typical day when you are drinking?: 1 or 2 3. How often do you have six or more drinks on one occasion?: Never Total Score: 1 BRYCE-7 AMB Questionnaire BRYCE-7 Date BRYCE - 7 assessed: 08/13/24 Feeling nervous, anxious, or on edge: 0 = Not at all Not being able to stop or control worryin = Not at all Worrying too much about different things: 0 = Not at all Trouble relaxin = Not at all Being so restless that it is hard to sit still: 0 = Not at all Becoming easily annoyed or irritable: 0 = Not at all Feeling afraid as if something awful might happen: 0 = Not at all Total BRYCE-7 score (0-4 normal; 5-9 mild; 10-14 moderate; 15-21 severe): 0 Source: Developed by Drs. Gagan Solano, Yesenia Doyle, Sam Smyth and colleagues, with an educational siddharth from [employer]. Physical exam (Primary Care) Vital Signs: Last Vital Signs Temp 98.4 F 02/18/25 09:18 Pulse 80 02/18/25 09:18 Resp 16 02/18/25 09:18 BP 150/90 H 02/18/25 09:18 Pulse Ox 97 02/18/25 09:18 Oxygen Delivery Method Room Air 02/18/25 09:18 BMI result Body Mass Index 34.5 Tobacco/Smoking Status: Tobacco use Status Tobacco use date assessed 08/13/24 02/18/25 09:23 Patient Tobacco Use Status Never used Tobacco 02/18/25 09:23 PHQ-9: PHQ-9 Score PHQ-9: Total score 0 02/18/25 10:40 Thrive Assessment: Date of Thrive Assessment Date Thrive assessed 08/13/24 02/18/25 09:23 Office Procedures Flu Questionnaire Does the patient have a severe egg allergy?: No Does the patient have severe life threatening allergies?: No Does the patient have a fever or illness today?: No Has the patient ever had Guillain-[place] Syndrome?: No Has the patient ever had any past reaction to a flu shot?: No Immunizations Fluarix [id number] (PF) 45 mcg (15 mcg x 3)/0.5 mL IM syringe Performing Provider: Trell Bledsoe MD [facility] Documented (not given) by: BOBBY Colmenares on 02/18/25 10:41 Reason Not Given: Patient Refused Coding Level of Care Code Est Pt Level 4 (69451) Complex EM visit Add On G2211 Diagnoses Generalized anxiety disorder F41.1 Essential hypertension I10 Assessment & Plan Assessment & Plan (1) Generalized anxiety disorder: Code(s): F41.1 - Generalized anxiety disorder Category: Medical Plan: History of Present Illness - The patient is a 64-year-old male presenting with a follow-up for chronic conditions and preventative care. - Kidney stones: History of recurrent episodes, now controlled with daily lemon juice intake, with no episodes in the past three years. - Borderline hypercholesterolemia: Identified in July, with no updates on current status or management changes. - Hypertension: Managed with losartan, with a refill requested during the visit. - Insomnia: Managed with Ambien and clonazepam, with clonazepam also used for restless legs syndrome. - Restless legs syndrome: Managed with clonazepam, dosage reduced from 1 mg to 0.5 mg, with symptoms persisting at night. - Preventative care: Blood work planned, colonoscopy performed 6-7 years ago with normal results. Social History - Employment: Retired from working on [employer], a job held for seven years. Review of Systems - Neurological: Reports restless legs at night. - Sleep: Reports insomnia, managed with Ambien and clonazepam. Physical Exam General: Cooperative and healthy appearing Nutritional Appearance: Well nourished Orientation/consciousness: Patient oriented x3 Limitations: No limitations Head: Normal to inspection General: Appearance normal, both eyes and all related structures Neck: Normal visual inspection Chest: Normal palpation of entire chest wall Respiratory: Breathe. Deep breath. Out. ormal respiratory effort Neurology: Patient oriented x3 Results Plan - Blood work is ordered to monitor chronic conditions and assess current health status. - Continue current medication regimen for hypertension and insomnia, with a suggestion to try reducing clonazepam to assess the impact on restless legs syndrome. - Preventative care includes scheduling a follow-up colonoscopy, given the last one was 6-7 years ago. Discussion Notes I discussed the importance of monitoring chronic conditions through regular blood work and maintaining current medication regimens. We talked about the potential benefits of reducing clonazepam to evaluate its effect on restless legs syndrome. I recommended scheduling a follow-up colonoscopy due to the time elapsed since the last one. We also reviewed the locations for obtaining blood work and emphasized the need for fasting prior to the test. Patient Instructions - Get blood work done at one of the specified locations, ensuring to fast beforehand. - Continue taking prescribed medications for hypertension and insomnia. - Try reducing clonazepam dosage to see if restless legs symptoms improve. - Schedule a follow-up colonoscopy, as it has been 6-7 years since the last one. (2) Essential hypertension: Code(s): I10 - Essential (primary) hypertension Category: Medical Plan: Condition is stable Orders: Orders Basic Metabolic Panel Today F41.1 - Generalized anxiety disorder, I10 - Essential (primary) hypertension Lipid Panel Today F41.1 - Generalized anxiety disorder, I10 - Essential (primary) hypertension Prostate Specific Antigen Scr Today F41.1 - Generalized anxiety disorder, I10 - Essential (primary) hypertension Influenza [id number] Immunization Today Z23 - Encounter for immunization Complete Blood Count no Diff Today F41.1 - Generalized anxiety disorder, I10 - Essential (primary) hypertension Lipase Today F41.1 - Generalized anxiety disorder, I10 - Essential (primary) hypertension, K85.90 - Acute pancreatitis without necrosis or infection, unspecified Thyroid Stimulating Hormone Today F41.1 - Generalized anxiety disorder, I10 - Essential (primary) hypertension UA and rflx microscopic Today F41.1 - Generalized anxiety disorder, I10 - Essential (primary) hypertension Medications: Refilled losartan 50 mg PO BEDTIME 90 tabs 3RF
--- OUTSIDE RECORDS SUMMARY | 2025-02-18 10:32 | XMS_ITS | Patient Health Record ---
Author Organization 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 for 1 day(s) 08/20/2015 Active Singulair 10 MG 2 tablets in the cammy frannie Orally Once a day Active predniSONE 10 MG 1 tablet with food o r milk Orally prn Active Lisinopril 10 MG 1 tablet Orally Once a day Active Problems Problem Type SNOMED Code ICD Code Onset Dates Problem Status W/U Status Risk Notes Problem 109733439 Colon cancer screening (Z12.11) Active confirmed Problem 702054413 Blood in stool (K92.1) Active confirmed Problem 028276656 Abnormal findings in stool (R19.5) Active confirmed Plan Of Treatment Future Test Test Name Order Date COLONOSCOPY 08/20/2015 CT COLON DIAGNOSTIC NO CONTRAST 08/06/19 17 Insurance Providers Payer Name Payer Address Payer Phone Subscriber Number Group Number Insured Name Patient Relationship to Insured Coverage Start Date Coverage End Date [facility] [address] [place] [address] [phone] [id number] KYLE GABRIELA Self - patient is the insured Medical (General) History Medical History History ICD Code asthma nephrolithiasis hypertension Surgical History Surgery Date(Month/Year) cystoscopies
== END 2025-02-18 11:19 | disposition home or self-care (01) ==
LOC: HO.HMCSH 09:06
PROVIDERS: PCP Internal Medicine; Visit Provider Internal Medicine
DX: F41.1 Generalized anxiety disorder (principal); I10 Essential (primary) hypertension; Z23 Encounter for immunization

== ENCOUNTER → 2025-02-18 09:06 | Outpatient (BNVA) | payer BC, SELFPAY | PROVIDERS: PCP Internal Medicine; Visit Provider Internal Medicine | DX: F41.1 Generalized anxiety disorder (principal); I10 Essential (primary) hypertension; G25.81 Restless legs syndrome; K85.90 Acute pancreatitis without necrosis or infection, unspecified; Z23 Encounter for immunization; Z87.442 Personal history of urinary calculi | CPT/HCPCS: 90471; 96127 ==